=== PATIENT | male | born 1985 | race Caucasian/White ===

== ENCOUNTER 2018-09-21 09:35 | Emergency (ER) | payer SELFPAY ==
[2018-09-21 09:35] VITALS: BP 127/81; PULSE 81; RESP 18; TEMP 36.6; O2SAT 98
--- NOTE | 2018-09-21 09:52 | ED.ALLEREA ---
HPI - Allergic Reaction General Chief complaint: Allergic Reaction Stated complaint: Allergic reaction on arm and torso Time Seen by Provider: 09/21/18 09:52 Source: patient and other (girlfriend) Mode of arrival: ambulatory Limitations: no limitations History of Present Illness HPI narrative: This is a 33-year-old male comes in with complaint of rash. Patient states that started in the last 2 days. Patient noticed spots on his right upper extremity which is now in both upper extremities, his torso, back as well as running down his legs. Patient states it was very itchy. He has been taking Benadryl regularly in the itchiness is improved. No blistering. Patient has not had any fevers, no cold cough or congestion. No chest pain, no shortness of breath, no difficulty with breathing or swelling of the mouth, airway or tightness in the airway. No vomiting, no diarrhea or constipation. Patient has not had similar symptoms in the past. He has been taking amoxicillin for almost 2 weeks, he was taking this for a dental infection. Patient has never had allergic reaction to medications in the past. He denies any other medical history besides 2 surgeries on his right eye after an injury from prior crack or he lost the eye/vision. 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 He did not have any other symptoms until the next day. Related Data Previous Rx's Medication Instructions Recorded prednisone 50 mg PO DAILY #3 tab 09/21/18 Allergies Allergy/AdvReac Type Severity Reaction Status Date / Time No Known Drug Allergies Allergy Verified 09/21/18 09:42 Review of Systems Review of Systems ROS Unobtainable: All systems reviewed & are unremarkable except as noted in HPI and below Constitutional Denies chills, Denies fever(s), Denies headache(s), Denies lethargy and Denies weakness Eyes Denies change in vision ENT Ears, Nose, Mouth, and Throat: Reports as per HPI, Denies change in voice, Denies headache(s), Denies hoarseness, Denies lip swelling, Denies mouth lesions, Denies mouth pain, Denies nasal congestion, Denies neck pain, Denies sinus pain, Denies sore throat, Denies throat swelling and Denies tongue swelling Cardiovascular Denies chest pain, Denies edema, Denies irregular heart rhythm, Denies lightheadedness, Denies palpitations, Denies dyspnea and Denies dyspnea on exertion Respiratory Denies change in phlegm color, Denies chest congestion, Denies cough, Denies dyspnea, Denies dyspnea on exertion, Denies stridor and Denies wheezing Gastrointestinal Gastrointestinal: Denies abdominal pain, Denies melena, Denies hematochezia, Denies change in bowel habits, Denies diarrhea, Denies nausea and Denies vomiting Genitourinary Denies hematuria, Denies dysuria, Denies flank pain, Denies urinary incontinence and Denies urinary urgency Musculoskeletal Denies neck pain Integumentary/Breasts Reports as per HPI, Reports erythema, Denies photosensitivity, Reports rash and Denies unusual bruising Neurologic Denies headache(s) and Denies weakness Endocrine Denies palpitations Allergic/Immunologic Denies lip swelling, Denies throat swelling, Denies tongue swelling and Denies wheezing [facility] Surgical History (Updated 09/21/18 @ 10:10 by Demi Ramirez DO) H/O eye surgery (Chronic) Social History Smoking Status: Former smoker Social History Smoking Status: Former smoker Comment: Recently moved from [place], has 60-90 days before health insurance kicks in at [facility]. Exam Narrative Exam Narrative: GEN: well nourished, well appearing [place] on calm male, alert and oriented x 3, patient appears to be in no acute distress. HEENT: Atraumatic, right eye appears consistent with patient's history of injury and loss of vision, left eye is PERRLA, extraocular movements are intact, nares are clear, TMs are clear with no fluid, there is no conjunctival pallor. Throat is clear without any exudates, erythema, tonsillar enlargement or uvular deviation, no swelling of lips, oropharynx, no blistering or mucosal involvement. HEART: Regular rate and rhythm without murmur, clicks, rubs. LUNGS:Lungs clear to auscultation, no wheezes, rales, crackles, chest moves symmetrically ABD:bowel sounds normal, soft, non-tender, no guarding, rebound, rigidity, no masses noted, no hepatosplenomegaly :No CVA tenderness MSCL: Non-tender, no muscle atrophy, muscles strength 5/5 upper and lower extremities, full range of motion, normal gait NEURO:CN 2-12 intact, sensation normal. SKIN: Patient has papular erythematous rash on his upper extremities, chest torso and lower extremities. They are slightly raised. There is no vesicles. Is nontender to touch. There is no blistering. No mucosal involvement noted. Initial Vital Signs Initial Vital Signs: Vital Signs Temperature 97.8 F 09/21/18 09:35 Pulse Rate 81 09/21/18 09:35 Respiratory Rate 18 09/21/18 09:35 Blood Pressure 127/81 09/21/18 09:35 Pulse Oximetry 98 09/21/18 09:35 Course Orders Ordered: Discontinued Medications Prednisone (Deltasone) 60 mg PO NOW ONE Stop: 09/21/18 10:04 Last Admin: 09/21/18 10:10 Dose: 60 mg Vital Signs - 8 hr 09/21/18 09:35 Temperature 97.8 F Pulse Rate 81 Respiratory Rate 18 Blood Pressure 127/81 Pulse Oximetry 98 MDM - Allergic Reaction MDM Narrative Medical decision making narrative: Discussed with patient I suspect this is more from the amoxicillin although he did have potentially an exposure with some kind a pesticide through work but he did not have any other airway symptoms or similar symptoms when I which expect with an aerosol, discussed with patient to stop his amoxicillin. His symptoms have been improving feels a little bit of a knot on that side but everything else has resolved. He has follow-up with Dr. Manuel through [facility] I recommended he follow up with them. I do short course of steroids he is to continue Benadryl and return for re-evaluation. I recommended that he does not take amoxicillin in the future. We also discussed [facility] dental clinic in [place] may be a dental option while awaiting his insurance. Discharge Plan Departure Patient Disposition: Home Clinical Impression: Allergic drug reaction Qualifiers: Encounter type: initial encounter Qualified Code(s): T78.40XA - Allergy, unspecified, initial encounter Discharge Date/Time: 09/21/18 10:34 Interventions: ED Discharge Assessment Last Done: 09/21/18 10:30 Instructions: DI for Adverse Drug Reaction -- Allergic Activity Restrictions/Additional Instructions: Follow-up with Dr. Manuel in the next 3-5 days for recheck. Particularly if her symptoms have not completely resolved. Stop amoxicillin. I suspect this is the cause of her rash in his allergic reaction. Take prednisone once daily until gone. Take this medication with food. Continue Benadryl 1-2 tabs every 6-8 hours as needed for symptoms and itching. Return to the emergency department for fevers greater than 100.4, blistering or rash inside the lips, mouth or mucous membranes severe pain, persistent vomiting, black or bloody stools, shortness of breath, swelling of your lips, mouth or throat or other new or concerning symptoms. Prescriptions: New prednisone 50 mg tablet 50 mg PO DAILY Qty: 3 RF: 0 Referrals: Shama Manuel MD [Physician] -
[2018-09-21] MEDS: predniSONE 20 MG TABLET 60 MG PO (10:10)
--- NOTE | 2018-09-21 10:13 | ED_ITS ---
HPI - Allergic Reaction General Chief complaint: Allergic Reaction Stated complaint: Allergic reaction on arm and torso Time Seen by Provider: 09/21/18 09:52 Source: patient and other (girlfriend) Mode of arrival: ambulatory Limitations: no limitations History of Present Illness HPI narrative: This is a 33-year-old male comes in with complaint of rash. Patient states that started in the last 2 days. Patient noticed spots on his right upper extremity which is now in both upper extremities, his torso, back as well as running down his legs. Patient states it was very itchy. He has been taking Benadryl regularly in the itchiness is improved. No blistering. Patient has not had any fevers, no cold cough or congestion. No chest pain, no shortness of breath, no difficulty with breathing or swelling of the mouth, airway or tightness in the airway. No vomiting, no diarrhea or constipation. Patient has not had similar symptoms in the past. He has been taking amoxicillin for almost 2 weeks, he was taking this for a dental infection. Patient has never had allergic reaction to medications in the past. He denies any other medical history besides 2 surgeries on his right eye after an injury from prior crack or he lost the eye/vision. 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 He did not have any other symptoms until the next day. Related Data Previous Rx's Medication Instructions Recorded prednisone 50 mg PO DAILY #3 tab 09/21/18 Allergies Allergy/AdvReac Type Severity Reaction Status Date / Time No Known Drug Allergies Allergy Verified 09/21/18 09:42 Review of Systems Review of Systems ROS Unobtainable: All systems reviewed & are unremarkable except as noted in HPI and below Constitutional Denies chills, Denies fever(s), Denies headache(s), Denies lethargy and Denies weakness Eyes Denies change in vision ENT Ears, Nose, Mouth, and Throat: Reports as per HPI, Denies change in voice, Denies headache(s), Denies hoarseness, Denies lip swelling, Denies mouth lesions, Denies mouth pain, Denies nasal congestion, Denies neck pain, Denies sinus pain, Denies sore throat, Denies throat swelling and Denies tongue swelling Cardiovascular Denies chest pain, Denies edema, Denies irregular heart rhythm, Denies lightheadedness, Denies palpitations, Denies dyspnea and Denies dyspnea on exertion Respiratory Denies change in phlegm color, Denies chest congestion, Denies cough, Denies dyspnea, Denies dyspnea on exertion, Denies stridor and Denies wheezing Gastrointestinal Gastrointestinal: Denies abdominal pain, Denies melena, Denies hematochezia, Denies change in bowel habits, Denies diarrhea, Denies nausea and Denies vomiting Genitourinary Denies hematuria, Denies dysuria, Denies flank pain, Denies urinary incontinence and Denies urinary urgency Musculoskeletal Denies neck pain Integumentary/Breasts Reports as per HPI, Reports erythema, Denies photosensitivity, Reports rash and Denies unusual bruising Neurologic Denies headache(s) and Denies weakness Endocrine Denies palpitations Allergic/Immunologic Denies lip swelling, Denies throat swelling, Denies tongue swelling and Denies wheezing [facility] Surgical History (Updated 09/21/18 @ 10:10 by Demi Ramirez DO) H/O eye surgery (Chronic) Social History Smoking Status: Former smoker Social History Smoking Status: Former smoker Comment: Recently moved from [place], has 60-90 days before health insurance kicks in at [facility]. Exam Narrative Exam Narrative: GEN: well nourished, well appearing [place] on calm male, alert and oriented x 3, patient appears to be in no acute distress. HEENT: Atraumatic, right eye appears consistent with patient's history of injury and loss of vision, left eye is PERRLA, extraocular movements are intact, nares are clear, TMs are clear with no fluid, there is no conjunctival pallor. Throat is clear without any exudates, erythema, tonsillar enlargement or uvular deviation, no swelling of lips, oropharynx, no blistering or mucosal involvement. HEART: Regular rate and rhythm without murmur, clicks, rubs. LUNGS:Lungs clear to auscultation, no wheezes, rales, crackles, chest moves symmetrically ABD:bowel sounds normal, soft, non-tender, no guarding, rebound, rigidity, no masses noted, no hepatosplenomegaly :No CVA tenderness MSCL: Non-tender, no muscle atrophy, muscles strength 5/5 upper and lower extremities, full range of motion, normal gait NEURO:CN 2-12 intact, sensation normal. SKIN: Patient has papular erythematous rash on his upper extremities, chest torso and lower extremities. They are slightly raised. There is no vesicles. Is nontender to touch. There is no blistering. No mucosal involvement noted. Initial Vital Signs Initial Vital Signs: Vital Signs Temperature 97.8 F 09/21/18 09:35 Pulse Rate 81 09/21/18 09:35 Respiratory Rate 18 09/21/18 09:35 Blood Pressure 127/81 09/21/18 09:35 Pulse Oximetry 98 09/21/18 09:35 Course Orders Ordered: Discontinued Medications Prednisone (Deltasone) 60 mg PO NOW ONE Stop: 09/21/18 10:04 Last Admin: 09/21/18 10:10 Dose: 60 mg Vital Signs - 8 hr 09/21/18 09:35 Temperature 97.8 F Pulse Rate 81 Respiratory Rate 18 Blood Pressure 127/81 Pulse Oximetry 98 MDM - Allergic Reaction MDM Narrative Medical decision making narrative: Discussed with patient I suspect this is more from the amoxicillin although he did have potentially an exposure with some kind a pesticide through work but he did not have any other airway symptoms or similar symptoms when I which expect with an aerosol, discussed with patient to stop his amoxicillin. His symptoms have been improving feels a little bit of a knot on that side but everything else has resolved. He has follow-up with Dr. Manuel through [facility] I recommended he follow up with them. I do short course of steroids he is to continue Benadryl and return for re-evaluation. I recommended that he does not take amoxicillin in the future. We also discussed [facility] dental clinic in [place] may be a dental option while awaiting his insurance. Discharge Plan Departure Patient Disposition: Home Clinical Impression: Allergic drug reaction Qualifiers: Encounter type: initial encounter Qualified Code(s): T78.40XA - Allergy, unspecified, initial encounter Discharge Date/Time: 09/21/18 10:34 Interventions: ED Discharge Assessment Last Done: 09/21/18 10:30 Instructions: DI for Adverse Drug Reaction -- Allergic Activity Restrictions/Additional Instructions: Follow-up with Dr. Manuel in the next 3-5 days for recheck. Particularly if her symptoms have not completely resolved. Stop amoxicillin. I suspect this is the cause of her rash in his allergic reaction. Take prednisone once daily until gone. Take this medication with food. Continue Benadryl 1-2 tabs every 6-8 hours as needed for symptoms and itching. Return to the emergency department for fevers greater than 100.4, blistering or rash inside the lips, mouth or mucous membranes severe pain, persistent vomiting, black or bloody stools, shortness of breath, swelling of your lips, mouth or throat or other new or concerning symptoms. Prescriptions: New prednisone 50 mg tablet 50 mg PO DAILY Qty: 3 RF: 0 Referrals: Shama Manuel MD [Physician] -
== END 2018-09-21 10:34 | disposition home or self-care (01) ==
PROVIDERS: Emergency Provider Emergency Medicine
DX: T78.40XA Allergy, unspecified, initial encounter (principal); R21 Rash and other nonspecific skin eruption; Y99.0 Civilian activity done for income or pay
CPT/HCPCS: 99282; 99283

== ENCOUNTER 2018-11-14 08:25 | Emergency (ER) | payer OTHER, SELFPAY ==
--- NOTE | 2018-11-14 08:27 | ED.BACK ---
HPI - Back Pain/Injury General Chief Complaint: Back Pain/Injury Stated Complaint: LOWER BACK PAIN Time Seen by Provider: 11/14/18 08:26 Source: patient Mode of arrival: ambulatory Limitations: no limitations History of Present Illness HPI Narrative: 33-year-old male former smoker with benign medical history presents with severe right-sided lower back pain for the past day or 2. He denies any trauma or direct injury. He has had no fever or chills. The pain is worse with motion and improves with rest. He denies any radiation of the pain. He has no trouble controlling bowel or bladder and denies numbness, tingling or weakness. He has had no foot drop. He denies any history of back pain. He has recently been shoveling sand and working lifting heavy objects Complaint: back pain Onset (ago): day(s) Duration: constant Similar Symptoms Previously: No Location: lumbar spine Severity: moderate Quality: burning and sharp Radiation: none Relieving factors: immobilization Exacerbating factors: movement Context: while lifting Associated symptoms: denies other symptoms Related Data Previous Rx's Medication Instructions Recorded prednisone 50 mg PO DAILY #3 tab 09/21/18 cyclobenzaprine 10 mg PO TID PRN #14 tab 11/14/18 hydrocodone-acetaminophen 1 tab PO Q4-6H PRN #10 tab 11/14/18 ketorolac 10 mg PO Q6H PRN #14 tab 11/14/18 lidocaine [Lidoderm] 1 patch TOP DAILY #15 each 11/14/18 Allergies Allergy/AdvReac Type Severity Reaction Status Date / Time No Known Drug Allergies Allergy Verified 09/21/18 09:42 Review of Systems Constitutional Denies chills, Denies fever(s), Denies lethargy and Denies weakness Eyes Denies change in vision, Denies eye discharge, Denies irritation and Denies loss of vision ENT Ears, Nose, Mouth, and Throat: Denies change in voice, Denies neck pain and Denies sore throat Cardiovascular Denies chest pain, Denies irregular heart rhythm, Denies lightheadedness, Denies palpitations, Denies dyspnea, Denies dyspnea on exertion and Denies orthopnea Respiratory Denies cough, Denies dyspnea, Denies dyspnea on exertion and Denies wheezing Gastrointestinal Gastrointestinal: Denies abdominal pain, Denies change in bowel habits, Denies diarrhea, Denies nausea and Denies vomiting Genitourinary Denies hematuria, Denies flank pain, Denies urinary incontinence and Denies urinary urgency Musculoskeletal Reports back pain and Denies neck pain Integumentary/Breasts Denies pruritus, Denies erythema, Denies rash and Denies wounds Neurologic Denies confusion, Denies loss of vision and Denies weakness Psychiatric Denies anxiety, Denies confusion, Denies depression, Denies homicidal ideation and Denies suicidal ideation Endocrine Denies palpitations Hematologic/Lymphatic Denies easy bruising Allergic/Immunologic Denies wheezing [facility] Surgical History H/O eye surgery (Chronic) Social History Smoking Status: Former smoker Social History Smoking Status: Former smoker Exam Narrative Exam Narrative: GENERAL: This is a well-nourished, well-developed patient, in mild distress. HEAD: Atraumatic. Normocephalic. No temporal or scalp tenderness. EYES: Pupils equal round and reactive. Extraocular motions intact. No scleral icterus. No injection or drainage. ENT: Nose without bleeding, purulent drainage or septal hematoma. Throat without erythema, tonsillar hypertrophy or exudate. Uvula midline. Airway patent. NECK: Trachea midline. No JVD or lymphadenopathy. Supple, nontender, no meningeal signs. CARDIOVASCULAR: Regular rate and rhythm without murmurs, gallops, or rubs. RESPIRATORY: Clear to auscultation. Breath sounds equal bilaterally. No wheezes, rales, or rhonchi. GASTROINTESTINAL: Abdomen soft, non-tender, nondistended. No hepato-splenomegaly, or palpable masses. No guarding. EXTREMITIES: No clubbing, cyanosis, or edema. No joint tenderness, effusion, or edema noted. BACK: cell tender but free of any obvious external abnormalities. Patient exam notes decreased range of motion and muscle spasm in the paraspinal musculature of R lumbar region. , but no CVA tenderness, or vertebral point tenderness. There are no symptoms of cauda equina such as saddle anesthesia, and decreased reflexes, decreased sensation or strength. NEURO: AOx3. SKIN: No rash or erythema. Initial Vital Signs Initial Vital Signs: Vital Signs Temperature 97.7 F 08/09/19 08:35 Pulse Rate 67 11/14/18 08:35 Respiratory Rate 18 11/14/18 08:35 Blood Pressure 116/74 11/14/18 08:35 Pulse Oximetry 100 11/14/18 08:35 Course Orders Ordered: Discontinued Medications Diazepam (Valium) 5 mg PO NOW ONE Stop: 11/14/18 08:35 Last Admin: 11/14/18 08:47 Dose: 5 mg Ketorolac Tromethamine (Toradol) 60 mg IM NOW ONE Stop: 11/14/18 08:35 Last Admin: 11/14/18 08:46 Dose: 60 mg Lidocaine (Lidoderm) 1 each TOP NOW ONE Stop: 11/14/18 08:35 Last Admin: 11/14/18 08:47 Dose: 1 each Vital Signs - 8 hr 11/14/18 08:35 11/14/18 09:20 Temperature 97.7 F Pulse Rate 67 74 Respiratory Rate 18 18 Blood Pressure 116/74 Blood Pressure [Left Arm] 133/82 Pulse Oximetry 100 100 MDM - Back Pain/Injury MDM Narrative Medical decision making narrative: 33-year-old male with reproducible back pain and palpable spasm of the right lumbar spine. Multiple etiologies of back pain considered including; Epidural abscess, cauda equina, mass occupying lesion, and other considered. No signs of cauda equina. Return precautions given, questions answered to his apparent satisfaction Discharge Plan Departure Patient Disposition: Home Clinical Impression: Strain of lumbar region Qualifiers: Encounter type: initial encounter Qualified Code(s): S39.012A - Strain of muscle, fascia and tendon of lower back, initial encounter Discharge Date/Time: 11/14/18 09:21 Interventions: ED Discharge Assessment Last Done: 11/14/18 09:21 Instructions: DI for Low Back Pain Activity Restrictions/Additional Instructions: *You have been diagnosed with [lumbar pain with muscle spasm] *What to do: *Take medications as directed *Follow up with your primary care provider in 2-3 days, call for an appointment. Let them know you were seen in the Emergency Department and that we ask that you be seen in follow up *Return to ER if you should have any new, worsening or concerning symptoms, such as [trouble controlling bowel or bladder, numbness or tingling in her groin or pain radiating down her leg, leg weakness, other bothersome symptoms] Prescriptions: New cyclobenzaprine 10 mg tablet 10 mg PO TID PRN (Reason: muscle spasm) Qty: 14 RF: 0 hydrocodone-acetaminophen 5-325 mg tablet 1 tab PO Q4-6H PRN (Reason: pain) Qty: 10 RF: 0 ketorolac 10 mg tablet 10 mg PO Q6H PRN (Reason: pain) Qty: 14 RF: 0 lidocaine [Lidoderm] 5 % adhesive patch,medicated 1 patch TOP DAILY Qty: 15 RF: 0 No Action prednisone 50 mg tablet 50 mg PO DAILY Qty: 3 RF: 0
[2018-11-14 08:35] VITALS: BP 116/74; PULSE 67; RESP 18; TEMP 36.5; O2SAT 100
[2018-11-14] MEDS: KETOROLAC 60 MG/2 ML VIAL IM (08:46)
[2018-11-14] MEDS: diazePAM 5 MG TABLET PO (08:47)
[2018-11-14] MEDS: LIDOCAINE PATCH 1 EACH ADH..PATCH TOP (08:47)
--- NOTE | 2018-11-14 08:58 | ED_ITS ---
HPI - Back Pain/Injury General Chief Complaint: Back Pain/Injury Stated Complaint: LOWER BACK PAIN Time Seen by Provider: 11/14/18 08:26 Source: patient Mode of arrival: ambulatory Limitations: no limitations History of Present Illness HPI Narrative: 33-year-old male former smoker with benign medical history presents with severe right-sided lower back pain for the past day or 2. He denies any trauma or direct injury. He has had no fever or chills. The pain is worse with motion and improves with rest. He denies any radiation of the pain. He has no trouble controlling bowel or bladder and denies numbness, tingling or weakness. He has had no foot drop. He denies any history of back pain. He has recently been shoveling sand and working lifting heavy objects Complaint: back pain Onset (ago): day(s) Duration: constant Similar Symptoms Previously: No Location: lumbar spine Severity: moderate Quality: burning and sharp Radiation: none Relieving factors: immobilization Exacerbating factors: movement Context: while lifting Associated symptoms: denies other symptoms Related Data Previous Rx's Medication Instructions Recorded prednisone 50 mg PO DAILY #3 tab 09/21/18 cyclobenzaprine 10 mg PO TID PRN #14 tab 11/14/18 hydrocodone-acetaminophen 1 tab PO Q4-6H PRN #10 tab 11/14/18 ketorolac 10 mg PO Q6H PRN #14 tab 11/14/18 lidocaine [Lidoderm] 1 patch TOP DAILY #15 each 11/14/18 Allergies Allergy/AdvReac Type Severity Reaction Status Date / Time No Known Drug Allergies Allergy Verified 09/21/18 09:42 Review of Systems Constitutional Denies chills, Denies fever(s), Denies lethargy and Denies weakness Eyes Denies change in vision, Denies eye discharge, Denies irritation and Denies loss of vision ENT Ears, Nose, Mouth, and Throat: Denies change in voice, Denies neck pain and Denies sore throat Cardiovascular Denies chest pain, Denies irregular heart rhythm, Denies lightheadedness, Denies palpitations, Denies dyspnea, Denies dyspnea on exertion and Denies orthopnea Respiratory Denies cough, Denies dyspnea, Denies dyspnea on exertion and Denies wheezing Gastrointestinal Gastrointestinal: Denies abdominal pain, Denies change in bowel habits, Denies diarrhea, Denies nausea and Denies vomiting Genitourinary Denies hematuria, Denies flank pain, Denies urinary incontinence and Denies urinary urgency Musculoskeletal Reports back pain and Denies neck pain Integumentary/Breasts Denies pruritus, Denies erythema, Denies rash and Denies wounds Neurologic Denies confusion, Denies loss of vision and Denies weakness Psychiatric Denies anxiety, Denies confusion, Denies depression, Denies homicidal ideation and Denies suicidal ideation Endocrine Denies palpitations Hematologic/Lymphatic Denies easy bruising Allergic/Immunologic Denies wheezing [facility] Surgical History H/O eye surgery (Chronic) Social History Smoking Status: Former smoker Social History Smoking Status: Former smoker Exam Narrative Exam Narrative: GENERAL: This is a well-nourished, well-developed patient, in mild distress. HEAD: Atraumatic. Normocephalic. No temporal or scalp tenderness. EYES: Pupils equal round and reactive. Extraocular motions intact. No scleral icterus. No injection or drainage. ENT: Nose without bleeding, purulent drainage or septal hematoma. Throat without erythema, tonsillar hypertrophy or exudate. Uvula midline. Airway patent. NECK: Trachea midline. No JVD or lymphadenopathy. Supple, nontender, no meningeal signs. CARDIOVASCULAR: Regular rate and rhythm without murmurs, gallops, or rubs. RESPIRATORY: Clear to auscultation. Breath sounds equal bilaterally. No wheezes, rales, or rhonchi. GASTROINTESTINAL: Abdomen soft, non-tender, nondistended. No hepato- splenomegaly, or palpable masses. No guarding. EXTREMITIES: No clubbing, cyanosis, or edema. No joint tenderness, effusion, or edema noted. BACK: lubricating machine tender but free of any obvious external abnormalities. Patient exam notes decreased range of motion and muscle spasm in the paraspinal musculature o f R lumbar region. , but no CVA tenderness, or vertebral point tenderness. There are no symptoms of cauda equina such as saddle anesthesia, and decreased reflexes, decreased sensation or strength. NEURO: AOx3. SKIN: No rash or erythema. Initial Vital Signs Initial Vital Signs: Vital Signs Temperature 97.7 F 11/14/18 08:35 Pulse Rate 67 11/14/18 08:35 Respiratory Rate 18 11/14/18 08:35 Blood Pressure 116/74 11/14/18 08:35 Pulse Oximetry 100 11/14/18 08:35 Course Orders Ordered: Discontinued Medications Diazepam (Valium) 5 mg PO NOW ONE Stop: 11/14/18 08:35 Last Admin: 11/14/18 08:47 Dose: 5 mg Ketorolac Tromethamine (Toradol) 60 mg IM NOW ONE Stop: 11/14/18 08:35 Last Admin: 11/14/18 08:46 Dose: 60 mg Lidocaine (Lidoderm) 1 each TOP NOW ONE Stop: 11/14/18 08:35 Last Admin: 11/14/18 08:47 Dose: 1 each Vital Signs - 8 hr 11/14/18 08:35 11/14/18 09:20 Temperature 97.7 F Pulse Rate 67 74 Respiratory Rate 18 18 Blood Pressure 116/74 Blood Pressure [Left Arm] 133/82 Pulse Oximetry 100 100 MDM - Back Pain/Injury MDM Narrative Medical decision making narrative: 33-year-old male with reproducible back pain and palpable spasm of the right lumbar spine. Multiple etiologies of back pain considered including; Epidural abscess, cauda equina, mass occupying lesion, and other considered. No signs of cauda equina. Return precautions given, questions answered to his apparent satisfaction Discharge Plan Departure Patient Disposition: Home Clinical Impression: Strain of lumbar region Qualifiers: Encounter type: initial encounter Qualified Code(s): S39.012A - Strain of muscle, fascia and tendon of lower back, initial encounter Discharge Date/Time: 11/14/18 09:21 Interventions: ED Discharge Assessment Last Done: 11/14/18 09:21 Instructions: DI for Low Back Pain Activity Restrictions/Additional Instructions: *You have been diagnosed with [lumbar pain with muscle spasm] *What to do: *Take medications as directed *Follow up with your primary care provider in 2-3 days, call for an appointment. Let them know you were seen in the Emergency Department and that we ask that you be seen in follow up *Return to ER if you should have any new, worsening or concerning symptoms, such as [trouble controlling bowel or bladder, numbness or tingling in her groin or pain radiating down her leg, leg weakness, other bothersome symptoms] Prescriptions: New cyclobenzaprine 10 mg tablet 10 mg PO TID PRN (Reason: muscle spasm) Qty: 14 RF: 0 hydrocodone-acetaminophen 5-325 mg tablet 1 tab PO Q4-6H PRN (Reason: pain) Qty: 10 RF: 0 ketorolac 10 mg tablet 10 mg PO Q6H PRN (Reason: pain) Qty: 14 RF: 0 lidocaine [Lidoderm] 5 % adhesive patch,medicated 1 patch TOP DAILY Qty: 15 RF: 0 No Action prednisone 50 mg tablet 50 mg PO DAILY Qty: 3 RF: 0
[2018-11-14 09:20] VITALS: BP 133/82; PULSE 74; RESP 18; O2SAT 100
== END 2018-11-14 09:21 | disposition home or self-care (01) ==
PROVIDERS: Emergency Provider Emergency Medicine
DX: S39.012A Strain of muscle, fascia and tendon of lower back, initial encounter (principal)
CPT/HCPCS: 96372; 99282; 99283; J1885

== ENCOUNTER 2019-07-26 13:16 | Emergency (ER) | payer SELFPAY ==
[2019-07-26 13:22] VITALS: BP 127/80; PULSE 68; RESP 18; TEMP 36.6; O2SAT 98
--- NOTE | 2019-07-26 13:29 | ED_ITS ---
HPI - Back Pain/Injury <LARRY Maher - Last Filed: 07/26/19 14:23> General Chief Complaint: Back Pain/Injury Stated Complaint: under right shoulder back is hurting Time Seen by Provider: 07/26/19 13:17 Source: patient Limitations: no limitations History of Present Illness HPI Narrative: The patient is a 33-year-old male former smoker with history of eye surgery a presents with a chief complaint of pain around the back of his right shoulder blade. He states this has been going on for several weeks, at least 4 weeks at this point time. However has gotten worse over the past few days. He states his pain is 7/10 during interview. He has not taken anything at home today. He has not tried any Tylenol or ibuprofen or other measures today for his pain. He has tried ibuprofen on and off for the past several weeks. He denies any falls or trauma. Denies any previous injuries to his right shoulder or back. 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 He denies any numbness or tingling. Related Data Previous Rx's Medication Instructions Recorded prednisone 50 mg PO DAILY #3 tab 09/21/18 cyclobenzaprine 10 mg PO TID PRN #14 tab 11/14/18 hydrocodone-acetaminophen 1 tab PO Q4-6H PRN #10 tab 11/14/18 ketorolac 10 mg PO Q6H PRN #14 tab 11/14/18 lidocaine [Lidoderm] 1 patch TOP DAILY #15 each 11/14/18 cyclobenzaprine 10 mg PO TID PRN #20 tab 07/26/19 ketorolac 10 mg PO TID PRN 5 Days #14 tab 07/26/19 lidocaine 1 patch TOP DAILY PRN #15 each 07/26/19 Allergies Allergy/AdvReac Type Severity Reaction Status Date / Time No Known Drug Allergies Allergy Verified 09/21/18 09:42 Review of Systems <LARRY Maher - Last Filed: 07/26/19 14:23> Review of Systems Narrative: GENERAL: Denies chills, fatigue, malaise, fever, sweats. HEENT: Denies sinus pain, ear pain, sore throat, difficulty swallowing, dizziness. RESPIRATORY: Denies dyspnea, cough, wheezing, hemoptysis, sputum. CARDIOVASCULAR: Denies chest pain, palpitations, orthopnea, edema, GASTROINTESTINAL: Denies nausea, vomiting, abdominal pain, diarrhea, constipation, melena. : Denies dysuria, frequency, incontinence, hematuria, urinary retention. MUSCULOSKELETAL: See HPI SKIN: Denies rash, skin lesions, or other NEUROLOGIC: Denies weakness, headache, numbness, change in speech, confusion, seizures, incoordination. PSYCHIATRIC: No concerning psychosocial issues. 12 point review of systems is negative except for those stated above Patient History <LARRY Maher - Last Filed: 07/26/19 14:23> Surgical History H/O eye surgery (Chronic) Social History Smoking Status: Former smoker Smoking Status: Former smoker alcohol intake frequency: 0-2 drinks per day Substance Use Type: does not use Exam <LARRY Maher - Last Filed: 07/26/19 14:23> Narrative Exam Narrative: GENERAL: This is a well-nourished, well-developed patient, in no acute distress. HEAD: Atraumatic. Normocephalic. No temporal or scalp tenderness. EYES: Postoperative right eye noted. Left eye is tracking well. ENT: Nose without bleeding, purulent drainage or septal hematoma. Throat without erythema, tonsillar hypertrophy or exudate. Uvula midline. Airway patent. NECK: Trachea midline. No JVD or lymphadenopathy. Supple, nontender, no meningeal signs. CARDIOVASCULAR: Regular rate and rhythm RESPIRATORY: Clear to auscultation. Breath sounds equal bilaterally. No wheezes, rales, or rhonchi. No cough. No increased respiratory effort. No accessory muscle use. GASTROINTESTINAL: Abdomen soft, non-tender, nondistended. No hepato- splenomegaly, or palpable masses. No guarding. EXTREMITIES: No clubbing, cyanosis, or edema. No joint tenderness, effusion, or edema noted. Full range of motion noted bilateral shoulders. Positive radial pulses bilateral shoulders. BACK: No pain to CT or L-spine palpation. No palpable deformity or step-offs. Pain to right paraspinal muscles the thoracic area. NEURO: AOx3. SKIN: No rash or erythema on visible skin. No rash lesions or other abnormality noted around right shoulder and thoracic spine Initial Vital Signs Initial Vital Signs: Vital Signs Temperature 97.9 F 07/26/19 13:22 Pulse Rate 68 07/26/19 13:22 Respiratory Rate 18 07/26/19 13:22 Blood Pressure 127/80 07/26/19 13:22 Pulse Oximetry 98 07/26/19 13:22 <Demi Ramirez DO - Last Filed: 07/26/19 15:01> Initial Vital Signs Initial Vital Signs: Vital Signs Temperature 97.9 F 07/26/19 13:22 Pulse Rate 68 07/26/19 13:22 Respiratory Rate 18 07/26/19 13:22 Blood Pressure 127/80 07/26/19 13:22 Pulse Oximetry 98 07/26/19 13:22 Course <EUGENIO Maher-BC - Last Filed: 07/26/19 14:23> Orders Ordered: Discontinued Medications Cyclobenzaprine HCl (Flexeril) 10 mg PO NOW ONE Stop: 07/26/19 13:26 Last Admin: 07/26/19 13:33 Dose: 10 mg Documented by: MEISENB Ketorolac Tromethamine (Toradol) 60 mg IM NOW ONE Stop: 07/26/19 13:26 Last Admin: 07/26/19 13:32 Dose: 60 mg Documented by: MEISENB Lidocaine (Lidoderm) 1 each TOP NOW ONE Stop: 07/26/19 13:26 Last Admin: 07/26/19 13:33 Dose: 1 each Documented by: MEISENB Vital Signs Vital signs: Vital Signs - 8 hr 07/26/19 13:22 07/26/19 14:04 Temperature 97.9 F Pulse Rate 68 54 L Respiratory Rate 18 18 Blood Pressure 127/80 Blood Pressure [Left Arm] 123/72 Pulse Oximetry 98 96 <Demi Ramirez DO - Last Filed: 07/26/19 15:01> Orders Ordered: Discontinued Medications Cyclobenzaprine HCl (Flexeril) 10 mg PO NOW ONE Stop: 07/26/19 13:26 Last Admin: 07/26/19 13:33 Dose: 10 mg Documented by: MEISENB Ketorolac Tromethamine (Toradol) 60 mg IM NOW ONE Stop: 07/26/19 13:26 Last Admin: 07/26/19 13:32 Dose: 60 mg Documented by: THERESA Lidocaine (Lidoderm) 1 each TOP NOW ONE Stop: 07/26/19 13:26 Last Admin: 07/26/19 13:33 Dose: 1 each Documented by: THERESA Vital Signs Vital signs: Vital Signs - 8 hr 07/26/19 13:22 07/26/19 14:04 Temperature 97.9 F Pulse Rate 68 54 L Respiratory Rate 18 18 Blood Pressure 127/80 Blood Pressure [Left Arm] 123/72 Pulse Oximetry 98 96 MDM - Back Pain/Injury <EUGENIO Maher- - Last Filed: 07/26/19 14:23> MDM Narrative Medical decision making narrative: The patient is a 33-year-old male who presents with a chief complaint of right-sided shoulder and back pain. He denies any falls or trauma declines an x-ray. He feels improved after the above-stated therapies. I discussed rest, give him a work note for light duty, discussed not combining Toradol with any other anti-inflammatories, that cyclobenzaprine to be sedating etcetera. Encourage PCP follow-up the next few days. Patient has no questions or concerns upon discharge and states understanding return precautions as well as follow-up care. Discharge Plan Departure Patient Disposition: Home Clinical Impression: Muscle spasm Discharge Date/Time: 07/26/19 14:14 Instructions: DI for Muscle Strain, DI for Back Spasm Activity Restrictions/Additional Instructions: Thank you for trusting us with your care today. Please follow-up with primary care provider. I have given you contact information the [facility] health natural resource economist. They can help you identify a primary care provider. I have sent your prescriptions to [facility] Please be aware that cyclobenzaprine can be sedating. Do not take and drive or combine it with any other sedating agents. I have given you a prescription of Toradol. This is an NSAID. Do not combine it with other NSAIDs such as Aleve or ibuprofen. I suggest taking it with some food, as it can irritate your stomach. Prescriptions: New cyclobenzaprine 10 mg tablet 10 mg PO TID PRN (Reason: muscle spasm) Qty: 20 RF: 0 ketorolac 10 mg tablet 10 mg PO TID PRN (Reason: pain) 5 Days Qty: 14 RF: 0 lidocaine 5 % adhesive patch,medicated 1 patch TOP DAILY PRN (Reason: pain) Qty: 15 RF: 0 No Action prednisone 50 mg tablet 50 mg PO DAILY Qty: 3 RF: 0 cyclobenzaprine 10 mg tablet 10 mg PO TID PRN (Reason: muscle spasm) Qty: 14 RF: 0 hydrocodone-acetaminophen 5-325 mg tablet 1 tab PO Q4-6H PRN (Reason: pain) Qty: 10 RF: 0 ketorolac 10 mg tablet 10 mg PO Q6H PRN (Reason: pain) Qty: 14 RF: 0 lidocaine [Lidoderm] 5 % adhesive patch,medicated 1 patch TOP DAILY Qty: 15 RF: 0 Referrals: [facility] Resources [Outside] Stand Alone Forms: Work Release Note
[2019-07-26] MEDS: KETOROLAC 60 MG/2 ML VIAL IM (13:32)
[2019-07-26] MEDS: CYCLOBENZAPRINE 10 MG TABLET PO (13:33)
[2019-07-26] MEDS: LIDOCAINE PATCH 1 EACH ADH..PATCH TOP (13:33)
[2019-07-26 14:04] VITALS: BP 123/72; PULSE 54; RESP 18; O2SAT 96
== END 2019-07-26 14:14 | disposition home or self-care (01) ==
PROVIDERS: Emergency Provider Nurse Practitioner Family
DX: M62.838 Other muscle spasm (principal)
CPT/HCPCS: 96372; 99283; J1885

== ENCOUNTER 2019-08-02 14:47 | Emergency (ER) | payer SELFPAY ==
[2019-08-02 14:57] VITALS: BP 128/77; PULSE 88; RESP 18; TEMP 36.8; O2SAT 100
[2019-08-02] MEDS: ACETAMINOPHEN 325 MG TABLET 650 MG PO (18:04)
[2019-08-02] MEDS: IBUPROFEN 400 MG TABLET PO (18:04)
[2019-08-02] MEDS: predniSONE 20 MG TABLET 40 MG PO (18:04)
[2019-08-02] MEDS: PANTOPRAZOLE 20 MG TABLET PO (18:05)
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
[2019-08-02 19:05] VITALS: BP 136/78; PULSE 75; RESP 20; O2SAT 97
[2019-08-02] MEDS: TRAMADOL 50 MG PREPACK 1 BOTTLE MISC (19:17)
== END 2019-08-02 19:21 | disposition home or self-care (01) ==
PROVIDERS: Emergency Provider Nurse Practitioner Family
DX: M54.6 Pain in thoracic spine (principal)
CPT/HCPCS: 99283; 99284

== ENCOUNTER 2019-08-16 06:48 | Emergency (ER) | payer SELFPAY ==
[2019-08-16 07:00] VITALS: BP 130/90; PULSE 74; RESP 16; TEMP 36.8; O2SAT 98; BMI 23.7
[2019-08-16] MEDS: SODIUM CHLORIDE 0.9% 1,000 ML 1000 ML IV (07:31)
--- NOTE | 2019-08-16 07:32 | DI.CT.S_ITS ---
PROCEDURE: CT ABDOMEN PELVIS W CON INDICATIONS: 2 day H/O LLQ pain with tenderness TECHNIQUE: After the administration of intravenous contrast, 5 mm thick sections acquired from the diaphragm to the symphysis. 5 mm coronal and sagittal reformats were acquired. For radiation dose reduction, the following was used: automated exposure control, adjustment of mA and/or kV according to patient size. COMPARISON: None. FINDINGS: Image quality: Excellent. ABDOMEN: Lung bases: Lung bases are clear. Heart size is normal. A small hiatal hernia is incidentally noted. Solid organs: Liver is normal in size and enhancement. Diffuse fatty liver infiltration is noted. Gallbladder wall is not thickened. Biliary system is non dilated. Pancreas enhances normally. Spleen is normal in size and enhancement. No adrenal nodules. Kidneys demonstrate normal size and enhancement, without hydronephrosis. Peritoneum and bowel: In this patient with this given history, scrutiny is given to the left lower quadrant. Within the left lower quadrant, there is focal inflammatory change seen adjacent to the colon, which surrounds a focus of fat, as on series 2 image 69 and on series 4 image 22 and on series 5 image 30. There is mild wall thickening seen of the adjacent distal descending colon. Negative for diverticulitis. Bowel loops otherwise demonstrate normal wall thickness and caliber. No free fluid or air. Incidental note is made of a normal-appearing appendix. Nodes and vessels: No retroperitoneal or mesenteric adenopathy by size criteria. Aorta and inferior vena cava are normal in size. Miscellaneous: A mild periumbilical hernia is seen, containing fat. PELVIS: Genitourinary: Bladder wall thickness is normal. Miscellaneous: No inguinal hernias or adenopathy. Bones: No suspicious bony lesions. No vertebral body compression fractures. IMPRESSION: Epiploic appendagitis. This is a benign, self-limited process. Negative for diverticulitis. Incidental note is made of: Small hiatal hernia Fatty liver infiltration Mild fat-containing periumbilical hernia Normal appendix Dictated by: Merrick Montague M.D. on 08/16/2019 at 7:19 Approved by: Merrick Montague M.D. on 08/16/2019 at 7:23
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
[2019-08-16 07:39] LABS: Add Manual Diff / Slide Review NO; Basophils Absolute Auto 100 /uL (0-100); Basophils Percent Auto 0.9 % (0-2); Eosinophils Absolute Auto 400 /uL (0-450); Eosinophils Percent Auto 6.5 % (2-4); Hematocrit 43.8 % (41-53); Hemoglobin 15.6 g/dL (13.5-17.5); Lymphocytes Absolute Auto 2100 /uL (1100-4500); Lymphocytes Percent Auto 30.8 % (25-40); Mean Corpuscular HGB Conc 35.5 % (30-36); Mean Corpuscular Hemoglobin 31.6 PG (26-34); Mean Corpuscular Volume 88.9 fL (80-100); Monocytes Absolute Auto 700 /uL (0-900); Monocytes Percent Auto 9.9 % (3-14); Neutrophils Absolute Auto 3500 /uL (1500-7000); Neutrophils Percent Auto 51.9 % (50-75); Platelet Count 347 X10^3/uL (150-400); Red Blood Cell Count 4.92 X10^6/uL (4.5-5.9); Red Cell Distribution Width 12.9 % (11.6-14.8); White Blood Cell Count 6.8 X10^3/uL (4.5-11.0)
[2019-08-16] MEDS: KETOROLAC 60 MG/2 ML VIAL 30 MG IV (07:39)
[2019-08-16 07:53] LABS: Alanine Aminotransferase 106 IU/L (<50); Albumin 4.5 g/dL (3.5-5.0); Albumin Globulin Ratio 1.4 (1.0-2.8); Alkaline Phosphatase 69 U/L (38-126); Aspartate Aminotransferase 54 IU/L (17-59); BUN Creatinine Ratio 11.6 (6-22); Bilirubin Total 0.6 mg/dL (0.2-1.3); Blood Urea Nitrogen 11 mg/dL (9-20); Calcium 9.6 mg/dL (8.4-10.2); Carbon Dioxide 26 mmol/L (22-32); Chloride 103 mmol/L (98-107); Estimated Glomerular Filt Rate > 60.0 mL/min (>60); Globulin 3.3 g/dL (1.7-4.1); Glucose 114 mg/dL (70-100); HEMOLYSIS 18 (0-50); Lactate (Lactic Acid) 1.3 mmol/L (0.7-2.1); Lipase 74 U/L (23-300); Sodium 138 mmol/L (137-145); Total Protein 7.8 g/dL (6.3-8.2)
[2019-08-16 10:08] VITALS: BP 114/74; PULSE 88; RESP 18; O2SAT 98
== END 2019-08-16 10:22 | disposition home or self-care (01) ==
PROVIDERS: Emergency Medicine; Emergency Provider Emergency Medicine
DX: R10.32 Left lower quadrant pain (principal); K38.8 Other specified diseases of appendix
CPT/HCPCS: 36415; 74177; 80053; 81003; 83605; 83690; 85025; 93005; 96361; 96374; 99284; J1885; Q9967

== ENCOUNTER 2019-09-20 09:26 | Emergency (ER) | payer SELFPAY ==
[2019-09-20 09:32] VITALS: BP 145/86; PULSE 94; RESP 20; TEMP 36.4; O2SAT 98
--- NOTE | 2019-09-20 09:35 | PC.NURSE ---
patient taking a shower lifted up his neck and felt sharp pain in right scapular region. Also noticed a small lump lower down in mid back that is soft and slightly tender to palpation. Denies numbness and tingling in arms. Patient reports pain with movement of neck down neck to shoulder and scapular region.
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
[2019-09-20] MEDS: CYCLOBENZAPRINE 10 MG TABLET PO (10:00)
[2019-09-20] MEDS: LIDOCAINE PATCH 1 EACH ADH..PATCH TOP (10:01)
[2019-09-20] MEDS: KETOROLAC 60 MG/2 ML VIAL 30 MG IM (10:01)
[2019-09-20 10:17] VITALS: BP 118/76; PULSE 68; RESP 16; O2SAT 98
== END 2019-09-20 10:17 | disposition home or self-care (01) ==
PROVIDERS: Emergency Provider Emergency Medicine
DX: M54.6 Pain in thoracic spine (principal); M25.511 Pain in right shoulder; M62.830 Muscle spasm of back; D17.39 Benign lipomatous neoplasm of skin and subcutaneous tissue of other sites
CPT/HCPCS: 96372; 99283; J1885

== ENCOUNTER 2019-12-29 07:32 | Emergency (ER) | payer SELFPAY ==
[2019-12-29 07:37] VITALS: BP 137/97
[2019-12-29 07:38] VITALS: BP 137/97; PULSE 70; PULSE 71; RESP 16; TEMP 36.7; O2SAT 97; O2SAT 98; BMI 23.7
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
[2019-12-29 07:58] LABS: Add Manual Diff / Slide Review NO; Basophils Absolute Auto 0 /uL (0-100); Basophils Percent Auto 0.8 % (0-2); Eosinophils Absolute Auto 200 /uL (0-450); Eosinophils Percent Auto 3.4 % (2-4); Hematocrit 46.2 % (41-53); Hemoglobin 16.4 g/dL (13.5-17.5); Lymphocytes Absolute Auto 1900 /uL (1100-4500); Mean Corpuscular HGB Conc 35.6 % (30-36); Mean Corpuscular Hemoglobin 31.5 PG (26-34); Mean Corpuscular Volume 88.4 fL (80-100); Monocytes Absolute Auto 600 /uL (0-900); Monocytes Percent Auto 10.6 % (3-14); Neutrophils Absolute Auto 2800 /uL (1500-7000); Neutrophils Percent Auto 51.2 % (50-75); Platelet Count 351 X10^3/uL (150-400); Red Blood Cell Count 5.22 X10^6/uL (4.5-5.9); Red Cell Distribution Width 13.4 % (11.6-14.8); White Blood Cell Count 5.6 X10^3/uL (4.5-11.0)
[2019-12-29 08:04] VITALS: PULSE 71; O2SAT 98
[2019-12-29 08:05] VITALS: BP 133/82; PULSE 61; O2SAT 98
[2019-12-29] MEDS: SODIUM CHLORIDE 0.9% 1,000 ML 1000 ML IV (08:05)
[2019-12-29] MEDS: ONDANSETRON 4 MG/2 ML INJ IV (08:06)
[2019-12-29 08:11] LABS: Alanine Aminotransferase 90 IU/L (<50); Albumin 4.9 g/dL (3.5-5.0); Albumin Globulin Ratio 1.4 (1.0-2.8); Alkaline Phosphatase 75 U/L (38-126); Aspartate Aminotransferase 46 IU/L (17-59); BUN Creatinine Ratio 11.8 (6-22); Blood Urea Nitrogen 11 mg/dL (9-20); Calcium 9.4 mg/dL (8.4-10.2); Carbon Dioxide 27 mmol/L (22-32); Chloride 102 mmol/L (98-107); Estimated Glomerular Filt Rate > 60.0 mL/min (>60); Globulin 3.5 g/dL (1.7-4.1); Glucose 108 mg/dL (70-100); HEMOLYSIS 21 (0-50); Lipase 78 U/L (23-300); Potassium 3.7 mmol/L (3.4-5.1); Sodium 141 mmol/L (137-145); Total Protein 8.4 g/dL (6.3-8.2)
[2019-12-29 08:30] VITALS: BP 123/68; PULSE 75; O2SAT 97
[2019-12-29 08:37] LABS: COVID19 -Nasal RAPID Negative (Negative)
[2019-12-29 09:00] VITALS: BP 116/68; PULSE 54; O2SAT 97
== END 2019-12-29 09:13 | disposition home or self-care (01) ==
PROVIDERS: Emergency Provider Emergency Medicine
DX: K21.9 Gastro-esophageal reflux disease without esophagitis (principal); R11.2 Nausea with vomiting, unspecified; R19.7 Diarrhea, unspecified
CPT/HCPCS: 36415; 80053; 83690; 85025; 87635; 96361; 96374; 99284; J2405

== ENCOUNTER 2020-01-08 19:24 | Emergency (ER) | payer MEDICAID, SELFPAY ==
[2020-01-08 19:35] VITALS: BP 138/91; PULSE 71; RESP 15; TEMP 36.5; O2SAT 98; BMI 23.7
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
[2020-01-08 21:31] LABS: Add Manual Diff / Slide Review NO; Basophils Absolute Auto 0 /uL (0-100); Basophils Percent Auto 0.6 % (0-2); Eosinophils Absolute Auto 200 /uL (0-450); Eosinophils Percent Auto 2.2 % (2-4); Hematocrit 45.9 % (41-53); Hemoglobin 16.2 g/dL (13.5-17.5); Lymphocytes Absolute Auto 2500 /uL (1100-4500); Lymphocytes Percent Auto 33.4 % (25-40); Mean Corpuscular HGB Conc 35.4 % (30-36); Mean Corpuscular Hemoglobin 31.3 PG (26-34); Mean Corpuscular Volume 88.4 fL (80-100); Monocytes Absolute Auto 600 /uL (0-900); Monocytes Percent Auto 8.4 % (3-14); Neutrophils Absolute Auto 4100 /uL (1500-7000); Neutrophils Percent Auto 55.4 % (50-75); Platelet Count 392 X10^3/uL (150-400); Red Blood Cell Count 5.19 X10^6/uL (4.5-5.9); White Blood Cell Count 7.4 X10^3/uL (4.5-11.0)
[2020-01-08 21:35] LABS: BUN Creatinine Ratio 14.1 (6-22); Blood Urea Nitrogen 12 mg/dL (9-20); Calcium 9.3 mg/dL (8.4-10.2); Carbon Dioxide 26 mmol/L (22-32); Chloride 102 mmol/L (98-107); Estimated Glomerular Filt Rate > 60.0 mL/min (>60); Glucose 92 mg/dL (70-100); HEMOLYSIS < 15 (0-50); Potassium 3.8 mmol/L (3.4-5.1); Sodium 138 mmol/L (137-145)
[2020-01-08] MEDS: PROPARACAINE 0.5% OPHTH SOL 1 DROPS EYE-RIGHT (21:51)
[2020-01-08] MEDS: KETOROLAC 60 MG/2 ML VIAL 15 MG IV (21:52)
[2020-01-08] MEDS: FLUORESCEIN 1 MG STRIP EYE-RIGHT (21:52)
[2020-01-08] MEDS: METOCLOPRAMIDE 10 MG/2 ML INJ IV (21:53)
[2020-01-08] MEDS: SODIUM CHLORIDE 0.9% 1,000 ML 1000 ML IV (22:00)
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
== END 2020-01-08 23:34 | disposition home or self-care (01) ==
PROVIDERS: Emergency Provider Emergency Medicine
DX: G43.809 Other migraine, not intractable, without status migrainosus (principal)
CPT/HCPCS: 70481; 80048; 85025; 96361; 96374; 96375; 99284; J1885; J2765; Q9967

== ENCOUNTER 2020-04-25 16:43 | Emergency (ER) | payer OTHER, MEDICAID, SELFPAY ==
[2020-04-25 17:00] VITALS: BP 125/74; PULSE 67; RESP 16; TEMP 36.5; O2SAT 99
--- NOTE | 2020-04-25 17:03 | DI.RAD.S_ITS ---
PROCEDURE: XR KNEE LT 3V INDICATIONS: injury TECHNIQUE: 3 views of the knee were acquired. COMPARISON: None. FINDINGS: Bones: No fractures or dislocations. No suspicious bony lesions. Soft tissues: No joint effusion. No suspicious soft tissue calcifications. IMPRESSION: No fracture. No acute osseous lesion. If symptoms and/or clinical suspicion for pathology persists, further assessment with repeat radiographs (7-10 days) or advanced imaging (e.g. CT, MRI or bone scan) should be considered. Dictated by: Aria Graff MD, PhD on 04/25/2020 at 16:26 Approved by: Aria Graff MD, PhD on 04/25/2020 at 16:27
--- NOTE | 2020-04-25 18:03 | PC.NURSE ---
states he was able to ambulate out of the [place]5 miles after having his left knee buckle inwards on him. reports he has had a prior injury to the same knee and explained that injury as his knee buckling inward.
--- NOTE | 2020-04-25 18:29 | ED.LOWEXIN ---
HPI - Extremity Injury (Lower) General Chief Complaint: Extremity Injury, Lower Stated Complaint: LEFT KNEE INJURY Time Seen by Provider: 04/25/20 18:06 Source: patient Mode of arrival: Ambulatory Limitations: no limitations History of Present Illness HPI Narrative: The patient was hiking earlier today. While walking downhill he says his left knee buckled. He has a prior injury to the left knee, about 5 years ago. He was never evaluated at that time. The medial aspect of his knee buckled today. He is ambulatory, he is limping. The event happened about noon. His taking nothing for pain there were no other injuries when he fell. He has no numbness or weakness in left leg. There is no edema or obvious deformity to the knee. He does have pain with motion. Related Data Previous Rx's Medication Instructions Recorded cyclobenzaprine 10 mg PO TID PRN #14 tab 09/20/19 lidocaine [Lidoderm] 1 patch TOP DAILY #5 each 09/20/19 naproxen [Naprosyn] 500 mg PO BID PRN #20 tab 09/20/19 omeprazole 40 mg PO DAILY #30 cap 12/29/19 ondansetron HCl 4 mg PO Q8H PRN #10 tab 12/29/19 tramadol 50 mg PO Q6H PRN #10 tab 04/25/20 Allergies Allergy/AdvReac Type Severity Reaction Status Date / Time Penicillins Allergy Rash Verified 04/25/20 17:03 Review of Systems Constitutional Constitutional: Denies chills, Denies fever(s) and Denies lethargy Comments: No recent illness. ENT Comments: No head or neck injury. Musculoskeletal Comments: Left knee pain as described in HPI. No edema. Integumentary/Breasts Comments: No rash, no obvious injuries. Neurologic Comments: No dizziness. No lower extremity numbness or weakness. Patient History Medical History Acid reflux Surgical History H/O eye surgery Social History Smoking Status: Former smoker Smoking Status: Former smoker alcohol intake frequency: other Substance Use Type: marijuana Exam Initial Vital Signs Initial Vital Signs: Vital Signs Temperature 97.7 F 04/25/20 17:00 Pulse Rate 67 04/25/20 17:00 Respiratory Rate 16 04/25/20 17:00 Blood Pressure 125/74 04/25/20 17:00 Pulse Oximetry 99 04/25/20 17:00 Const General: cooperative and well developed Nutritional Appearance: well nourished [facility] Head: normocephalic and atraumatic Skin General: no rashes or lesions noted Neuro General: patient alert, patient awake and patient oriented x3 Other: Motor and sensory exam of the left leg is normal. Extrem General: full ROM, no clubbing, cyanosis or edema, no pedal edema and no calf tenderness Other: Left knee range of motion 0-100 degrees. No edema. No palpable deformity. Patella is normal nontender. Anterior drawer is normal. Tenderness along the medial joint line. There is no medial laxity. There is no lateral tenderness or laxity. The left calf, and the remainder of left lower extremity is normal. Procedures Orthopedic Splinting/Casting Injury #1: Side: left Lower Extremity Injury Location: knee Lower Extremity Immobilizer: knee immobilizer Post splinting neuro exam: intact Post splinting vascular exam: intact Placed by: Nursing Course Orders Ordered: ED Orders 04/25/20 17:03 XR knee LT 3V Stat Discontinued Medications Ketorolac Tromethamine (Ketorolac 60 Mg/2 Ml Vial) 30 mg IM NOW ONE Stop: 04/25/20 18:37 Last Admin: 04/25/20 18:49 Dose: 30 mg Documented by: JEAN CARLOS Tramadol HCl (Tramadol 50 Mg Prepack) 1 bottle MISC SEEINSTR ONE Stop: 04/25/20 18:37 Last Admin: 04/25/20 18:49 Dose: 1 bottle Documented by: JEAN CARLOS Vital Signs Vital signs: Vital Signs - 8 hr 04/25/20 17:00 04/25/20 19:05 Temperature 97.7 F Pulse Rate 67 82 Respiratory Rate 16 15 Blood Pressure 125/74 114/88 Pulse Oximetry 99 99 MDM - Extremity Injury (Lower) Imaging Data Left knee x-ray:: Radiologist's Impression: Normal. MDM Narrative Medical decision making narrative: Left knee x-ray is normal. The patient was placed in a knee immobilizer, he is up and ambulatory once the immobilizer is in place. He is advised to recheck in 2 weeks if not improved. Discharge Plan Departure Patient Disposition: Home Clinical Impression: MCL sprain of left knee Instructions: DI for Knee Sprain Activity Restrictions/Additional Instructions: Advil 3 tablets every 6 hours as needed for pain. Tramadol every 6 hours as needed for added pain control. Apply ice to the left knee frequently for the next 2 days. Use the immobilizer when up and about, wean from the immobilizer as tolerated. If no better within 2 weeks follow-up with an orthopedic surgeon. I will give you contact information for the on-call physician. Return to the ER as needed. Prescriptions: New tramadol 50 mg tablet 50 mg PO Q6H PRN (Reason: pain) Qty: 10 RF: 0 No Action naproxen [Naprosyn] 500 mg tablet 500 mg PO BID PRN (Reason: pain) Qty: 20 RF: 0 cyclobenzaprine 10 mg tablet 10 mg PO TID PRN (Reason: muscle spasm) Qty: 14 RF: 0 lidocaine [Lidoderm] 5 % adhesive patch,medicated 1 patch TOP DAILY Qty: 5 RF: 0 omeprazole 40 mg capsule,delayed release(DR/EC) 40 mg PO DAILY Qty: 30 RF: 3 ondansetron HCl 4 mg tablet 4 mg PO Q8H PRN (Reason: nausea and vomiting) Qty: 10 RF: 0 Referrals: Fuad Leos MD [Emergency Provider] - Doroteo Storm MD [Physician] -
[2020-04-25] MEDS: KETOROLAC 60 MG/2 ML VIAL 30 MG IM (18:49)
[2020-04-25] MEDS: TRAMADOL 50 MG PREPACK 1 BOTTLE MISC (18:49)
--- NOTE | 2020-04-25 19:04 | PC.NURSE ---
patient demonstrated safe ambulation with a slow limping gate after knee immobilizer placed.
[2020-04-25 19:05] VITALS: BP 114/88; PULSE 82; RESP 15; O2SAT 99
== END 2020-04-25 19:07 | disposition home or self-care (01) ==
PROVIDERS: Emergency Provider Emergency Medicine
DX: S83.8X2A Sprain of other specified parts of left knee, initial encounter (principal); X58.XXXA Exposure to other specified factors, initial encounter
CPT/HCPCS: 73562; 96372; 99283; J1885

== ENCOUNTER → 2020-05-19 15:07 | Outpatient (CLI) | payer OTHER, MEDICAID, SELFPAY ==
--- NOTE | 2020-05-19 15:09 | DI.RAD.S_ITS ---
PROCEDURE: XR CHEST 2V INDICATIONS: coughing up blood, r/o infection TECHNIQUE: 2 views of the chest were acquired. COMPARISON: None. FINDINGS: Surgical changes and devices: None. Lungs and pleura: Lungs are clear. No pleural effusions or pneumothorax. Mediastinum: Mediastinal contours are normal. Heart size is normal. Bones and chest wall: No suspicious bony abnormalities. Soft tissues appear unremarkable. IMPRESSION: No acute process. Dictated by: Dean Garcia M.D. on 05/19/2020 at 15:24 Approved by: Dean Garcia M.D. on 05/19/2020 at 15:25
== END ==
PROVIDERS: PCP Family Medicine; Referring Provider Nurse Practitioner; Visit Provider Nurse Practitioner
DX: R04.2 Hemoptysis (principal)
CPT/HCPCS: 71046

== ENCOUNTER → 2020-05-25 09:56 | Outpatient (CLI) | payer OTHER, SELFPAY ==
--- NOTE | 2020-05-25 10:09 | DI.RAD.S_ITS ---
PROCEDURE: XR CERVICAL SPINE 2V OR 3V INDICATIONS: RT SHOULDER/SPINE PAIN TECHNIQUE: 3 view(s) of the cervical spine were acquired. COMPARISON: None. FINDINGS: Bones: No fractures or dislocations to the T1 level. The lateral masses of C1 appear intact on the odontoid view. No suspicious bony lesions. Loss of lordosis which could be related to muscle spasm, rigidity or simply positional. Mild disc degeneration at the C6-C7 and C7-T1 levels. Soft tissues: No prevertebral soft tissue swelling. IMPRESSION: Loss of lordosis and mild disc degeneration C6-C7 and C7-T1. Dictated by: Beto Chambers [facility] Interpreted: Cliff Baugh MD on 05/27/2020 at 15:56 Approved by: Cliff Baugh M.D. on 05/27/2020 at 16:03
--- NOTE | 2020-05-25 10:09 | DI.RAD.S_ITS ---
PROCEDURE: XR SHOULDER RT MIN 2V INDICATIONS: RT SHOULDER/SPINE PAIN TECHNIQUE: 3 views of the shoulder were acquired. COMPARISON: None. FINDINGS: Bones: No fractures or dislocations. No suspicious bony lesions. Visualized ribs appear intact. Soft tissues: No suspicious soft tissue calcifications. IMPRESSION: No fracture. No osseous lesion. If symptoms and/or clinical suspicion for pathology persists, further assessment with repeat radiographs (7-10 days) or advanced imaging (e.g. CT, MRI or bone scan) should be considered. Dictated by: Aria Graff MD, PhD on 05/25/2020 at 17:30 Approved by: Aria Graff MD, PhD on 05/25/2020 at 17:30
== END ==
PROVIDERS: PCP Family Medicine
DX: M25.511 Pain in right shoulder (principal); M50.323 Other cervical disc degeneration at C6-C7 level
CPT/HCPCS: 72040; 72100; 73030

== ENCOUNTER → 2020-06-03 10:08 | Outpatient (CLI) | payer OTHER, MEDICAID, SELFPAY ==
[2020-06-03 10:37] LABS: Alanine Aminotransferase 187 IU/L (<50); Albumin 4.7 g/dL (3.5-5.0); Albumin Globulin Ratio 1.3 (1.0-2.8); Alkaline Phosphatase 86 U/L (38-126); Aspartate Aminotransferase 79 IU/L (17-59); BUN Creatinine Ratio 14.8 (6-22); Bilirubin Total 0.6 mg/dL (0.2-1.3); Blood Urea Nitrogen 12 mg/dL (9-20); Calcium 9.4 mg/dL (8.4-10.2); Carbon Dioxide 33 mmol/L (22-32); Chloride 99 mmol/L (98-107); Cholesterol 184 mg/dL (140-199); Estimated Glomerular Filt Rate > 60.0 mL/min (>60); Globulin 3.6 g/dL (1.7-4.1); Glucose 112 mg/dL (70-100); HDL Cholesterol 37 mg/dL (40-60); HEMOLYSIS < 15 (0-50); LDL Cholesterol Calculated 87 mg/dL (<100); Potassium 3.8 mmol/L (3.4-5.1); Sodium 138 mmol/L (137-145); Total Protein 8.3 g/dL (6.3-8.2); Triglycerides 299 mg/dL (35-150)
== END ==
PROVIDERS: PCP Family Medicine; Referring Provider Family Medicine; Visit Provider Family Medicine
DX: K21.9 Gastro-esophageal reflux disease without esophagitis (principal)
CPT/HCPCS: 36415; 80053; 80061

== ENCOUNTER → 2020-06-15 10:28 | Outpatient (CLI) | payer OTHER, MEDICAID, SELFPAY ==
[2020-06-15 11:57] LABS: Add Manual Diff / Slide Review NO; Basophils Absolute Auto 0 /uL (0-100); Basophils Percent Auto 0.5 % (0-2); Eosinophils Absolute Auto 200 /uL (0-450); Eosinophils Percent Auto 3.6 % (2-4); Hematocrit 44.8 % (41-53); Hemoglobin 15.5 g/dL (13.5-17.5); Lymphocytes Absolute Auto 1700 /uL (1100-4500); Lymphocytes Percent Auto 30.4 % (25-40); Mean Corpuscular HGB Conc 34.6 % (30-36); Mean Corpuscular Volume 89.7 fL (80-100); Monocytes Absolute Auto 400 /uL (0-900); Monocytes Percent Auto 7.4 % (3-14); Neutrophils Absolute Auto 3300 /uL (1500-7000); Neutrophils Percent Auto 58.1 % (50-75); Platelet Count 363 X10^3/uL (150-400); Red Blood Cell Count 4.99 X10^6/uL (4.5-5.9); Red Cell Distribution Width 12.7 % (11.6-14.8); White Blood Cell Count 5.6 X10^3/uL (4.5-11.0)
[2020-06-15 12:15] LABS: Alanine Aminotransferase 99 IU/L (<50); Albumin 4.7 g/dL (3.5-5.0); Albumin Globulin Ratio 1.7 (1.0-2.8); Alkaline Phosphatase 76 U/L (38-126); Aspartate Aminotransferase 49 IU/L (17-59); BUN Creatinine Ratio 13.8 (6-22); Bilirubin Total 0.6 mg/dL (0.2-1.3); Blood Urea Nitrogen 12 mg/dL (9-20); Calcium 9.5 mg/dL (8.4-10.2); Carbon Dioxide 31 mmol/L (22-32); Chloride 100 mmol/L (98-107); Estimated Glomerular Filt Rate > 60.0 mL/min (>60); Globulin 2.8 g/dL (1.7-4.1); Glucose 97 mg/dL (70-100); HEMOLYSIS < 15 (0-50); Lipase 53 U/L (23-300); Potassium 4.2 mmol/L (3.4-5.1); Sodium 137 mmol/L (137-145); Total Protein 7.5 g/dL (6.3-8.2)
[2020-06-16 06:44] LABS: HBsAg Screen Negative (Negative); Hepatitis A Antibody IgM Negative (Negative); Hepatitis B Core Antibody IgM Negative (Negative); Hepatitis C Antibody <0.1 s/co ratio (0.0-0.9)
== END ==
PROVIDERS: PCP Family Medicine; Referring Provider Family Medicine; Visit Provider Family Medicine
DX: R79.89 Other specified abnormal findings of blood chemistry (principal)
CPT/HCPCS: 36415; 80053; 80074; 83690; 85025

== ENCOUNTER → 2020-06-27 08:12 | Outpatient (CLI) | payer OTHER, MEDICAID, SELFPAY ==
--- NOTE | 2020-06-27 08:13 | DI.US.S_ITS ---
PROCEDURE: US ABDOMEN COMPLETE INDICATIONS: INCREASING LIVER FUNCTION TESTS - NO ABDOMINAL PAIN TECHNIQUE: Real-time scanning was performed of the abdominal and retroperitoneal organs, with image documentation. COMPARISON: [facility], CT, CT ABDOMEN PELVIS W CON, 08/16/2019, 7:57. FINDINGS: Liver: The liver demonstrates normal size. The liver demonstrates generalized mildly increased echogenicity. This decreases ultrasound sensitivity for detection of hepatic masses. Likely focal fatty sparing can be seen adjacent to gallbladder, which measures up to 13 mm. The main portal vein demonstrates normal size and demonstrates normal appearing, hepatopetal flow. Gallbladder: No findings of gallstones or sludge are seen. The gallbladder wall is not thickened, measuring 3 mm or less. No specific pericholecystic fluid is seen. The sonographic Cerrato sign is negative. Biliary ducts: Intrahepatic bile ducts are non-dilated. Extrahepatic bile duct caliber measures 3 mm. Normal is 6-7 mm or less in diameter, or 10 mm or less post-cholecystectomy. Pancreas: Visualized portions of the pancreas are sonographically normal. Spleen: Spleen is normal in size and homogeneous in echotexture. Kidneys: Kidneys are normal in size and echotexture. Right kidney measures 12.6 cm long; left kidney measures 13.1 cm long. No hydronephrosis or nephrolithiasis. No solid masses. Aorta: Visualized aorta is normal in caliber at less than 3 cm. Iliacs: Proximal common iliac arteries are normal in caliber at less than 2.5 cm. IVC: Intrahepatic inferior vena cava is patent. Miscellaneous: No free abdominal fluid. IMPRESSION: Fatty liver infiltration, with apparent focal fatty sparing seen adjacent the gallbladder. The gallbladder demonstrates a normal sonographic appearance. No biliary dilatation is seen. Dictated by: Merrick Montague M.D. on 06/27/2020 at 8:27 Approved by: Merrick Montague M.D. on 06/27/2020 at 8:34
== END ==
PROVIDERS: PCP Family Medicine; Referring Provider Family Medicine; Visit Provider Family Medicine
DX: R79.89 Other specified abnormal findings of blood chemistry (principal); K76.0 Fatty (change of) liver, not elsewhere classified
CPT/HCPCS: 76700

== ENCOUNTER → 2020-08-01 10:51 | Outpatient (CLI) | payer OTHER, MEDICAID, SELFPAY ==
--- NOTE | 2020-08-01 10:52 | DI.RAD.S_ITS ---
PROCEDURE: XR KNEE LT 3V INDICATIONS: Progressive left knee pain TECHNIQUE: 3 views of the knee were acquired. COMPARISON: [facility], , XR KNEE LT 3V, 04/25/2020, 17:07. FINDINGS: Bones: No fractures or dislocations. No suspicious bony lesions. Mild tricompartmental osteoarthritis. Soft tissues: No joint effusion. No suspicious soft tissue calcifications. IMPRESSION: 1. No fracture. No acute osseous lesion. If symptoms and/or clinical suspicion for pathology persists, further assessment with repeat radiographs (7-10 days) or advanced imaging (e.g. CT, MRI or bone scan) should be considered. 2. Mild tricompartmental osteoarthritis. Dictated by: rAia Graff MD, PhD on 08/01/2020 at 17:27 Approved by: Aria Graff MD, PhD on 08/01/2020 at 17:28
== END ==
PROVIDERS: PCP Family Medicine; Referring Provider Family Medicine; Visit Provider Family Medicine
DX: M25.562 Pain in left knee (principal)
CPT/HCPCS: 73562

== ENCOUNTER 2020-08-15 13:21 | Emergency (ER) | payer OTHER, MEDICAID, SELFPAY ==
[2020-08-15 13:28] VITALS: BP 124/71; PULSE 71; RESP 12; TEMP 36.7; O2SAT 98; BMI 26.8
== END 2020-08-15 14:02 | disposition left against medical advice (07) ==
PROVIDERS: Emergency Provider Emergency Medicine; PCP Family Medicine
CPT/HCPCS: 81003

== ENCOUNTER 2020-08-15 21:47 | Emergency (ER) | payer OTHER, MEDICAID, SELFPAY ==
[2020-08-15 22:03] VITALS: BP 132/85; PULSE 70; RESP 16; TEMP 36.8; O2SAT 96; BMI 26.8
--- NOTE | 2020-08-15 23:18 | PC.NURSE ---
Upon palpation pt's LUQ and LLQ feels slightly more firm and distended than RUQ and RLQ. Pt denies that anything feels abnormal except for the pain. Normal BM this AM, loose BM later in the day, third BM small chunks. Was nauseated earlier in the day but no c/o nausea now.
[2020-08-15 23:20] LABS: Add Manual Diff / Slide Review NO; Basophils Absolute Auto 0 /uL (0-100); Basophils Percent Auto 0.6 % (0-2); Eosinophils Absolute Auto 300 /uL (0-450); Eosinophils Percent Auto 4.8 % (2-4); Hematocrit 43.4 % (41-53); Hemoglobin 14.9 g/dL (13.5-17.5); Lymphocytes Absolute Auto 2300 /uL (1100-4500); Lymphocytes Percent Auto 31.5 % (25-40); Mean Corpuscular HGB Conc 34.4 % (30-36); Mean Corpuscular Hemoglobin 30.3 PG (26-34); Mean Corpuscular Volume 88.2 fL (80-100); Monocytes Absolute Auto 700 /uL (0-900); Monocytes Percent Auto 9.5 % (3-14); Neutrophils Absolute Auto 3900 /uL (1500-7000); Neutrophils Percent Auto 53.6 % (50-75); Platelet Count 345 X10^3/uL (150-400); Red Blood Cell Count 4.92 X10^6/uL (4.5-5.9); Red Cell Distribution Width 12.9 % (11.6-14.8); White Blood Cell Count 7.3 X10^3/uL (4.5-11.0)
[2020-08-15 23:22] LABS: Prothrombin Time 11.2 SECONDS (10.1-12.7)
[2020-08-15 23:25] LABS: Alanine Aminotransferase 82 IU/L (<50); Albumin 4.5 g/dL (3.5-5.0); Albumin Globulin Ratio 1.5 (1.0-2.8); Alkaline Phosphatase 64 U/L (38-126); Aspartate Aminotransferase 43 IU/L (17-59); BUN Creatinine Ratio 14.1 (6-22); Bilirubin Total 0.4 mg/dL (0.2-1.3); Blood Urea Nitrogen 14 mg/dL (9-20); Calcium 9.2 mg/dL (8.4-10.2); Carbon Dioxide 28 mmol/L (22-32); Chloride 101 mmol/L (98-107); Estimated Glomerular Filt Rate > 60.0 mL/min (>60); Glucose 90 mg/dL (70-100); HEMOLYSIS < 15 (0-50); Lipase 50 U/L (23-300); Potassium 3.7 mmol/L (3.4-5.1); Sodium 138 mmol/L (137-145); Total Protein 7.5 g/dL (6.3-8.2)
[2020-08-15 23:35] LABS: PTT Partial Thromboplastin Tim 28 SECONDS (26.4-36.2)
--- NOTE | 2020-08-15 23:35 | DI.RAD.S_ITS ---
PROCEDURE: XR ACUTE ABDOMEN SERIES INDICATIONS: abdominal pain TECHNIQUE: One view chest and two views of the abdomen were acquired. COMPARISON: None. FINDINGS: Surgical changes and devices: None. Chest: Lungs are clear. Heart size is normal. No pleural effusions. No pneumoperitoneum. Abdomen: Bowel gas pattern is normal. No suspicious calcifications. Visualized solid organ contours appear normal. Bones: No suspicious bony lesions. IMPRESSION: No acute disease process. Dictated by: Aria Graff MD, PhD on 08/16/2020 at 8:48 Approved by: Aria Graff MD, PhD on 08/16/2020 at 8:48
--- NOTE | 2020-08-16 01:05 | ED_ITS ---
HPI - Abdominal Pain General Chief Complaint: Abdominal Pain Stated Complaint: STOMACH PAINS Time Seen by Provider: 08/16/20 00:03 Source: patient Mode of arrival: Ambulatory Limitations: no limitations History of Present Illness HPI narrative: This is a 35-year-old male comes in with complaint of abdominal discomfort. Patient states he woke up this morning and developed pain after bowel movement. Patient states and describes her epigastric discomfort without any radiation elsewhere. Does state it sort of is a crossed the top of the abdomen. Patient denies any fevers or chills. He had some mild nausea but no vomiting. He had a normal bowel movement this morning followed by slightly softer 1 afterwards. He has not any bowel movements since other than some is a very small amounts. He denies any melena or hematochezia. He has not had any urinary symptoms no dysuria, frequency or sense of urgency. He denies any back, flank pain or pain radiating to his chest. Patient denies any shortness of adriana th. He has not had similar symptoms in the past. Patient does take omeprazole for heartburn. He has not appreciated any other heartburn symptoms. He denies any prior surgeries except for 2 surgeries on his right eye when he was younger. Patient states he is allergic to penicillin. Related Data Previous Rx's Medication Instructions Recorded naproxen [Naprosyn] 500 mg PO BID PRN #20 tab 09/20/19 albuterol sulfate 90 mcg/actuation 2 puff INHALATION Q4-6H PRN #8.5 g 05/19/20 aerosol inhaler inhalational spacing device #1 ea 05/19/20 ketoconazole 2 % topical cream 1 applic TOPICAL BID #15 g 06/03/20 omeprazole 40 mg capsule,delayed 40 mg PO DAILY #90 cap 06/03/20 release triamcinolone acetonide 0.1 % 1 applic TOPICAL BID #15 g 06/03/20 topical cream meloxicam [Mobic] 7.5 mg PO BID PRN #14 tab 08/16/20 Allergies Allergy/AdvReac Type Severity Reaction Status Date / Time Penicillins Allergy Rash Verified 08/15/20 13:30 Review of Systems Review of Systems ROS Unobtainable: All systems reviewed & are unremarkable except as noted in HPI and below Patient History Medical History Acid reflux Blunt injury, right eye (~2000) Chronic back pain Chronic cough Eczema Elevated LFTs Fractures History of bipolar disorder Left knee pain Tinea Well adult exam Surgical History Anesthesia H/O eye surgery (~04/08/00) Family History (Updated 06/11/20 @ 21:21 by Vesna Ball) Mother Breast cancer Social History Smoking Status: Former smoker Smoking Status: Former smoker alcohol intake frequency: 0-2 drinks per day Substance Use Type: marijuana Exam Narrative Exam Narrative: GENERAL: Alert and oriented x three, well-nourished male in mild distress. HEENT: Head normocephalic, atraumatic, EOMI, pupil reactive on left, on right patient has scarring of scleral and cornea consistent with history of prior surgery, face symmetric, moist mucous membranes NECK: Supple, full range of motion CARDIOVASCULAR: Regular rate and rhythm without murmurs, rubs or gallops. RESPIRATORY: Breath sounds equal bilaterally, no wheezes rales or rhonchi. ABDOMEN: Soft, positive for epigastric and right upper quadrant tenderness. Normoactive bowel sounds all 4 quadrants. No guarding or rebound, rigidity, no mass, no bruit or pulsatile mass. : No CVA tenderness EXTREMITIES: Normal range of motion, no clubbing or edema. Neurovascularly intact NEUROLOGICAL: Cranial nerves II through XII grossly intact. Moving all extremities SKIN: Warm, dry, no petechiae, no rashes or lesions. Initial Vital Signs Initial Vital Signs: Vital Signs Temperature 98.2 F 08/15/20 22:03 Pulse Rate 70 08/15/20 22:03 Respiratory Rate 16 08/15/20 22:03 Blood Pressure 132/85 08/15/20 22:03 Pulse Oximetry 96 08/15/20 22:03 Course Orders Ordered: ED Orders 08/15/20 23:06 Complete Blood Count AUTO DIFF Stat Comprehensive Metabolic Panel Stat Lipase Stat Partial Thromboplastin Time Stat Prothrombin Time INR Stat 08/15/20 23:35 XR acute abdomen series Stat 08/16/20 01:11 US abdomen complete Stat Discontinued Medications Ketorolac Tromethamine (Ketorolac 30 Mg/Ml Vial) 15 mg IV NOW ONE Stop: 08/16/20 01:12 Last Admin: 08/16/20 01:21 Dose: 15 mg Documented by: ROSSI Pantoprazole Sodium (Pantoprazole 40 Mg Vial) 40 mg IV NOW ONE Stop: 08/16/20 01:12 Last Admin: 08/16/20 01:21 Dose: 40 mg Documented by: ROSSI Vital Signs Vital signs: Vital Signs - 8 hr 08/15/20 22:03 08/16/20 03:24 Temperature 98.2 F 97.8 F Pulse Rate 70 52 L Respiratory Rate 16 16 Blood Pressure 132/85 108/75 Pulse Oximetry 96 100 MDM - Abdominal Pain Lab Data Attestation: I reviewed the patient's lab results. Result diagrams: 08/15/20 23:06 08/15/20 23:06 Labs: Lab Results 08/15/20 08/15/20 08/15/20 Range/Units 23:06 23:06 23:06 WBC 7.3 (4.5-11.0) X10^3/uL RBC 4.92 (4.5-5.9) X10^6/uL Hgb 14.9 (13.5-17.5) g/dL Hct 43.4 (41-53) % MCV 88.2 (80-100) fL MCH 30.3 (26-34) PG MCHC 34.4 (30-36) % RDW 12.9 (11.6-14.8) % Plt Count 345 (150-400) X10^3/uL Neut % (Auto) 53.6 (50-75) % Lymph % (Auto) 31.5 (25-40) % Tarrant % (Auto) 9.5 (3-14) % Eos % (Auto) 4.8 H (2-4) % Baso % (Auto) 0.6 (0-2) % Neut # (Auto) 3900 (6740-7298) /uL Lymph # (Auto) 2300 (1320-2503) /uL Tarrant # (Auto) 700 (0-900) /uL Eos # (Auto) 300 (0-450) /uL Baso # (Auto) 0 (0-100) /uL PT 11.2 (10.1-12.7) SECONDS INR 1.0 (0.9-1.3) APTT 28 (26.4-36.2) SECONDS Sodium 138 (137-145) mmol/L Potassium 3.7 (3.4-5.1) mmol/L Chloride 101 (98-107) mmol/L Carbon Dioxide 28 (22-32) mmol/L BUN 14 (9-20) mg/dL Creatinine 0.99 (0.66-1.25) mg/dL Estimated GFR > 60.0 (>60) mL/min BUN/Creatinine Ratio 14.1 (6-22) Glucose 90 (70-100) mg/dL Calcium 9.2 (8.4-10.2) mg/dL Total Bilirubin 0.4 (0.2-1.3) mg/dL AST 43 (17-59) IU/L ALT 82 H (<50) IU/L Alkaline Phosphatase 64 (38-126) U/L Total Protein 7.5 (6.3-8.2) g/dL Albumin 4.5 (3.5-5.0) g/dL Globulin 3.0 (1.7-4.1) g/dL Albumin/Globulin Ratio 1.5 (1.0-2.8) Lipase 50 (23-300) U/L Point of care testing: Urine Dip Bedside Urine Glucose Negative Bedside Urine Bilirubin - Negative Bedside Urine Ketone - Negative Urine Specific Sawyer 1.030 Bedside Urine Occult Blood - Negative Bedside Urine pH 6.0 Bedside Urine Protein - Negative Bedside Urine Urobilinogen - Negative Bedside Urine Nitrite - Negative Bedside Urine Leukocytes - Negative Esterase Imaging Data Abdominal x-ray: Radiologist's Impression: Acute abdominal series. Question slight bibasilar atelectasis. No active cardiopulmonary pathology. Normal bowel gas pattern with mild fecal retention. US - abdomen: Radiologist's Impression: prelim-right hydro. no other acute changes noted. Official US-bed XT ptosis. No sonographic features of acute cholecystitis o bstructive uropathy. MDM Narrative Medical decision making narrative: This is a 35-year-old male who comes in with complaint of kind of abdominal epigastric pain which radiates to both sides that started acutely earlier during the day. Patient had some improvement with Toradol here in the department. His labs do not show any acute changes, urine is negative. X-ray shows possible right atelectasis and mild fecal retention. Patient has not had any symptoms consistent with pneumonia or upper respiratory infection. His ultrasound shows possible right hydro but he does not have any flank, or right lower abdominal pain on final report this is not appreciated. Patient's urine is negative he has normal ureteral jets patient I discussed plan for watchful waiting he does feel improved at this time. Discussed return pre cautions and patient feels comfortable with this plan. Discharge Plan Departure Patient Disposition: Home Clinical Impression: Abdominal pain Instructions: DI for Abdominal Pain-Adult Activity Restrictions/Additional Instructions: Follow up for recheck if your symptoms do not resolve or improve. May take Tylenol up to a 1000 mg every 8 hours as needed pain. If inadequate may take prescription pain medication as prescribed. You may take medication as prescribed take 1 tablet every 12 hours as needed for pain. Prescription was sent to [facility] in [place]. Please return for fevers, new or worsening abdominal, back or flank pain, persistent vomiting, black or bloody stools, difficulty with urination, bloody urination, new chest pain, shortness of breath or other new or concerning symp toms. Prescriptions: New meloxicam [Mobic] 7.5 mg tablet 7.5 mg PO BID PRN (Reason: pain) Qty: 14 RF: 0 No Action albuterol sulfate 90 mcg/actuation HFA aerosol inhaler 2 puff inhalation Q4-6H PRN (Reason: shortness of breath or wheezing) Qty: 8.5 RF: 0 (DME) Aerochamber MV Spacer See Rx Instructions .ROUTE .MEDSUPPLY Qty: 1 RF: 0 triamcinolone acetonide 0.1 % cream 1 applic topical BID Qty: 15 RF: 1 ketoconazole 2 % cream 1 applic topical BID Qty: 15 RF: 1 omeprazole 40 mg capsule,delayed release(DR/EC) 40 mg PO DAILY Qty: 90 RF: 1 naproxen [Naprosyn] 500 mg tablet 500 mg PO BID PRN (Reason: pain) Qty: 20 RF: 0 Referrals: Marino Draper, [Primary Care Provider] -
--- NOTE | 2020-08-16 01:11 | DI.US.S_ITS ---
PROCEDURE: US ABDOMEN COMPLETE INDICATIONS: EPIGASTRIC/ABDOMINAL PAIN TECHNIQUE: Real-time scanning was performed of the abdominal and retroperitoneal organs, with image documentation. COMPARISON: None. FINDINGS: Liver: Liver is normal in size and homogeneous in echotexture. Main portal vein measures 9.8 millimeters. Hepatopetal flow noted in the main portal vein. Liver is diffusely echogenic. Gallbladder: Gallbladder is sonographically normal. No gallstones. No gallbladder wall thickening. No pericholecystic fluid. No sonographic Cerrato sign. Biliary ducts: Intrahepatic bile ducts are non-dilated. Extrahepatic biliary system is obscured by bowel gas and cannot be evaluated. Pancreas: Obscured by bowel gas and cannot be evaluated. Spleen: Spleen is normal in size and homogeneous in echotexture. Kidneys: Kidneys are normal in size and echotexture. Right kidney measures 11.4 cm long; left kidney measures 14.3 cm long. No hydronephrosis or nephrolithiasis. No solid masses. Aorta: Visualized aorta is normal in caliber at less than 3 cm. Iliacs: Proximal common iliac arteries are normal in caliber at less than 2.5 cm. IVC: Intrahepatic inferior vena cava is patent. Miscellaneous: No free abdominal fluid. Prevoid urinary bladder volume 240 cubic centimeters. Bilateral ureteral jets identified. IMPRESSION: 1. Echogenic liver. Finding typically represents fatty infiltration; however, finding is nonspecific and correlation with clinical and laboratory findings is recommended to exclude other etiologies including hepatic cirrhosis. 2. No sonographic evidence of cholelithiasis or cholecystitis. If there is continued clinical concern for cholecystitis, a nuclear medicine HIDA scan should be considered for further evaluation. Dictated by: Aria Graff MD, PhD on 08/16/2020 at 8:19 Approved by: Aria Graff MD, PhD on 08/16/2020 at 8:22
[2020-08-16] MEDS: KETOROLAC 30 MG/ML VIAL 15 MG IV (01:21)
[2020-08-16] MEDS: PANTOPRAZOLE 40 MG VIAL IV (01:21)
[2020-08-16 03:24] VITALS: BP 108/75; PULSE 52; RESP 16; TEMP 36.6; O2SAT 100
== END 2020-08-16 03:25 | disposition home or self-care (01) ==
PROVIDERS: Emergency Provider Emergency Medicine; PCP Family Medicine
DX: R10.13 Epigastric pain (principal)
CPT/HCPCS: 36415; 74022; 76700; 80053; 81003; 83690; 85025; 85610; 85730; 96374; 96375; 99281; 99284; C9113; J1885

== ENCOUNTER → 2020-08-22 10:58 | Outpatient (CLI) | payer OTHER, MEDICAID, SELFPAY ==
--- NOTE | 2020-08-22 10:59 | DI.US.S_ITS ---
PROCEDURE: US ABDOMEN LIMITED INDICATIONS: ?HERNIA VS DIASTASTIS RECTI BETWEEN EPIGASTRIUM/UMBILICUS TECHNIQUE: Real-time scanning was performed of the abdominal wall with attention to the rectus abdominus to assess for potential hernia or diastasis rectus. COMPARISON: None. FINDINGS: There is no ventral hernia identified in the midline abdominal wall. The medial margins of the rectus abdominus muscle bellies are by approximately 1.3 centimeters, with 2 centimeters commonly accepted as the upper limit of normal. IMPRESSION: No findings of diastasis rectus or ventral hernia. Please see discussion above. Dictated by: Shaka Velasquez M.D. on 08/22/2020 at 14:18 Approved by: Shaka Velasquez M.D. on 08/22/2020 at 14:20
== END ==
PROVIDERS: PCP Family Medicine; Referring Provider Registered Nurse Diabetes Educator; Visit Provider Registered Nurse Diabetes Educator
DX: R10.9 Unspecified abdominal pain (principal)
CPT/HCPCS: 76705

== ENCOUNTER 2021-08-16 15:18 | Emergency (ER) | payer OTHER, MEDICAID, SELFPAY ==
[2021-08-16 15:28] VITALS: BP 148/97; PULSE 73; RESP 16; TEMP 36.4; O2SAT 98; BMI 25.7
[2021-08-16] MEDS: BUPIVACAINE 0.25% (PF) VIAL 5 ML SUBCUT (16:38)
[2021-08-16] MEDS: OXYCODONE/ACETAMINOPHEN 5/325 TABLET 1 TAB PO (16:38)
[2021-08-16] MEDS: KETOROLAC 30 MG/ML VIAL 15 MG IM (16:38)
[2021-08-16] MEDS: CLINDAMYCIN 150 MG CAPSULE 450 MG PO (17:24)
--- NOTE | 2021-08-16 17:28 | ED.DENTAL ---
HPI - Dental/Oral <JAMES Rosales - Last Filed: 08/16/21 17:35> General Chief complaint: Dental/Oral Stated complaint: Tooth pain, states exposed nerve Time Seen by Provider: 08/16/21 16:17 Source: patient Mode of arrival: Ambulatory History of Present Illness HPI Narrative: This is a 36-year-old male presents to the emergency department with left-sided lower dental pain due to dental today and states he has an exposed nerve and was unable to get through to [facility] today due to their system being down states that his pain is 20/10. He states that he took some pain medication at 1000 hours, endorses the worse than the pain he has ever had, he denies any discharge coming from his DKA he, he endorses some localized swelling, and pain deep in his jaw, he denies any large lump like an abscess, denies fever,, denies any difficulty eating food but states that his pain is unbearable this time. Related Data Previous Rx's Medication Instructions Recorded ketoconazole 2 % topical cream 1 applic TOPICAL BID #15 g 06/03/20 triamcinolone acetonide 0.1 % 1 applic TOPICAL BID #15 g 06/03/20 topical cream meloxicam 7.5 mg tablet 7.5 mg PO BID #14 tab 08/17/20 omeprazole 40 mg capsule,delayed 40 mg PO DAILY #90 cap 12/05/20 release benzocaine 20 %-menthol 0.1 %-zinc 1 ea MUCOUS MEMBRANE Q2HR PRN #5.1 08/16/21 chloride 0.15 % mucosal gel g (Orajel 3X Mouth Sores) clindamycin HCl 150 mg capsule 450 mg PO TID 7 Days #63 cap 08/16/21 hydrocodone 5 mg-acetaminophen 325 1 tab PO BID PRN #14 tab 08/16/21 mg tablet ketorolac 10 mg tablet 10 mg PO Q8H PRN #20 tab 08/16/21 Allergies Allergy/AdvReac Type Severity Reaction Status Date / Time Penicillins Allergy Rash Verified 08/17/20 08:57 Review of Systems <JAMES Rosales - Last Filed: 08/16/21 17:35> Review of Systems Narrative: General: denies fever, chills, malaise, sweats, fatigue Head/Neck: denies headache, neck pain, dizziness, left-sided lower dental pain Eyes: denies visual changes, eye pain Cardio: denies chest pain, palpitations, edema Respiratory: denies dyspnea, cough, orthopnea GI: denies abdominal pain, nausea, vomiting, or diarrhea : denies dysuria, hematuria, urinary retention, frequency or incontinence MSK: denies joint pain, muscle weakness Skin: denies rash, itching, skin lesions or other Neuro: denies numbness, tingling Patient History <JAMES Rosales - Last Filed: 08/16/21 17:35> Medical History Acid reflux Blunt injury, right eye (~2000) Chronic back pain Chronic cough Eczema Elevated LFTs Fractures History of bipolar disorder Left knee pain Tinea Well adult exam Surgical History Anesthesia H/O eye surgery (~04/08/00) Family History Mother Breast cancer Social History Smoking Status: Former smoker Smoking Status: Former smoker alcohol intake frequency: 0-2 drinks per day Substance Use Type: marijuana Exam <JAMES Rosales - Last Filed: 08/16/21 17:35> Narrative Exam Narrative: Independently reviewed vitals signs and nursing notes. General: cooperative, comfortable, in no acute distress, well developed and well groomed Head: atraumatic, symmetrical facial expressions Neck: supple, atraumatic, without lymphadenopathy. Eyes: pupils equal round and reactive, EOMI, conjunctiva normal Nose: nares patent, no rhinorrhea Mouth/Throat: uvula midline, moist mucus membranes, dental decays present in multiple teeth, primarily where he is complaining of pain with ecchymosis erythema extending below his teeth approximately 1 cm. Mild edema, dental block given locally with 0.25% bupivacaine in front of behind and below decayed tooth on lower left mandible. Patient tolerated well, no purulence drainage, no fluctuance, no abscess present. MSK: moves all extremities, ambulatory w/steady gait, neurovascularly intact, no weakness Skin: brisk capillary refill, no rash, no erythema Neuro: normal speech and cognition, A&O x3, normal tone Psych: mental status is grossly normal, congruent mood, normal affect, pleasant and cooperative Initial Vital Signs Initial Vital Signs: Vital Signs Temperature 97.5 F L 08/16/21 15:28 Pulse Rate 73 08/16/21 15:28 Respiratory Rate 16 08/16/21 15:28 Blood Pressure 148/97 H 08/16/21 15:28 Pulse Oximetry 98 08/16/21 15:28 <Tala Pichardo DO - Last Filed: 08/17/21 16:06> Initial Vital Signs Initial Vital Signs: Vital Signs Temperature 97.5 F L 08/16/21 15:28 Pulse Rate 73 08/16/21 15:28 Respiratory Rate 16 08/16/21 15:28 Blood Pressure 148/97 H 08/16/21 15:28 Pulse Oximetry 98 08/16/21 15:28 Course <JAMES Rosales - Last Filed: 08/16/21 17:35> Orders Ordered: Discontinued Medications Bupivacaine HCl (Bupivacaine 0.25% (Pf) Vial) 5 ml SUBCUT NOW ONE Stop: 08/16/21 16:28 Last Admin: 08/16/21 16:38 Dose: 5 ml Documented by: MITZY Clindamycin HCl (Clindamycin 150 Mg Capsule) 300 mg PO NOW ONE Stop: 08/16/21 17:03 Clindamycin HCl (Clindamycin 150 Mg Capsule) 450 mg PO NOW ONE Stop: 08/16/21 17:05 Last Admin: 08/16/21 17:24 Dose: 450 mg Documented by: MARIO Ketorolac Tromethamine (Ketorolac 30 Mg/Ml Vial) 15 mg IM NOW ONE Stop: 08/16/21 16:28 Last Admin: 08/16/21 16:38 Dose: 15 mg Documented by: MITZY Oxycodone/Acetaminophen (Oxycodone/Acetaminophen 5/325 Tablet) 1 tab PO NOW ONE Stop: 08/16/21 16:28 Last Admin: 08/16/21 16:38 Dose: 1 tab Documented by: MITZY Vital Signs Vital signs: Vital Signs - 8 hr 08/16/21 15:28 Temperature 97.5 F L Pulse Rate 73 Respiratory Rate 16 Blood Pressure 148/97 H Pulse Oximetry 98 <Tala Pichardo DO - Last Filed: 08/17/21 16:06> Orders Ordered: Discontinued Medications Bupivacaine HCl (Bupivacaine 0.25% (Pf) Vial) 5 ml SUBCUT NOW ONE Stop: 08/16/21 16:28 Last Admin: 08/16/21 16:38 Dose: 5 ml Documented by: MITZY Clindamycin HCl (Clindamycin 150 Mg Capsule) 300 mg PO NOW ONE Stop: 08/16/21 17:03 Clindamycin HCl (Clindamycin 150 Mg Capsule) 450 mg PO NOW ONE Stop: 08/16/21 17:05 Last Admin: 08/16/21 17:24 Dose: 450 mg Documented by: MARIO Ketorolac Tromethamine (Ketorolac 30 Mg/Ml Vial) 15 mg IM NOW ONE Stop: 08/16/21 16:28 Last Admin: 08/16/21 16:38 Dose: 15 mg Documented by: MITZY Oxycodone/Acetaminophen (Oxycodone/Acetaminophen 5/325 Tablet) 1 tab PO NOW ONE Stop: 08/16/21 16:28 Last Admin: 08/16/21 16:38 Dose: 1 tab Documented by: MITZY Vital Signs Vital signs: Vital Signs - 8 hr 08/16/21 15:28 Temperature 97.5 F L Pulse Rate 73 Respiratory Rate 16 Blood Pressure 148/97 H Pulse Oximetry 98 MDM - Dental/Oral <JAMES Rosales - Last Filed: 08/16/21 17:35> [facility] Narrative Medical decision making narrative: This is a 36-year-old male with history of poor dental hygiene and dental decay who presents emergency department complaining of lower left mandible dental pain which extends the blow his tooth which he states is due to an exposed nerve. He was unable to get through to the [facility] today because their phone system was down. Patient was given Toradol, percocet and clindamycin for gingival infection with an allergy to amoxicillin. He was given a dental block with 0.25% bupivacaine, he states that he feels 100 times better, tolerated well, no purulence drainage came from wound, patient nontoxic appearing, he has melena insurance and is only able to use [facility] he states. He will try again tomorrow but unfortunately there phone system was down today. He was provided a prescription for hydrocodone, Toradol tabs, Orajel, and clindamycin. Patient was gracious and agreeable to discharge home. Patient is appropriate and amenable to discharge home. Vital signs are stable on repeat examination is unremarkable. Patient has been informed of results. Patient has been given strict return to ER precautions for any new or worsening symptoms. Patient understands to follow up closely with outpatient providers as instructed. Patient understands plan and agrees to discharge home. All questions and concerns answered at this time. Discharge Plan Departure Patient Disposition: Home Clinical Impression: Dental infection, Pain due to dental caries Instructions: Tooth Decay, DI for Dental Pain Activity Restrictions/Additional Instructions: *You have been diagnosed with dental decay, and dental pain. Please call [facility] tomorrow, hopefully their system is back up, good luck and hopefully your pain is better controlled at least you are on antibiotics so castro be getting worse. Please start taking clindamycin 3 times a day for the next 7 days, you can take Toradol starting tomorrow every 6 hours as needed for pain with food and water as this can upset your stomach. You can take hydrocodone for breakthrough pain, you can use topical Orajel as well. Please pick this up at the pharmacy to. I wish you the best, hang in there, and thinks for trusting us with your care. *What to do: *Please continue to take your regular medications as directed. [x ] New medication prescriptions sent to your pharmacy: [ [facility]] [ ] New medication written as a paper prescription [ ] No new medications given *Please follow up with your primary care provider in 2-3 days, call for an appointment. Let them know you were seen in the Emergency Department and that we asked that you be seen for follow-up. We will electronically transmit a record of today's note if your PCP is in our system *If you do not have a primary care provider please contact [phone] to establish care with one of the [facility] primary care providers. *Return to Emergency Department if you should have any new, worsening or concerning symptoms, such as [fever greater than 101F, chills, worsening pain, persistent vomiting or other bothersome symptoms] Prescriptions: New clindamycin HCl 150 mg capsule 450 mg PO TID 7 Days Qty: 63 0RF Orajel 3X Mouth Sores 20-0.1-0.15 % gel 1 ea mucous membrane Q2HR PRN (Reason: pain) Qty: 5.1 0RF ketorolac 10 mg tablet 10 mg PO Q8H PRN (Reason: pain) Qty: 20 0RF hydrocodone-acetaminophen 5-325 mg tablet 1 tab PO BID PRN (Reason: pain) Qty: 14 0RF No Action omeprazole 40 mg capsule,delayed release(DR/EC) 40 mg PO DAILY Qty: 90 2RF triamcinolone acetonide 0.1 % cream 1 applic topical BID Qty: 15 1RF Rx Instructions: Use for eczema ketoconazole 2 % cream 1 applic topical BID Qty: 15 1RF Rx Instructions: Use for fungal infection meloxicam 7.5 mg tablet 7.5 mg PO BID Qty: 14 0RF Referrals: Marino Draper DO [Primary Care Provider] - <Tala Pichardo DO - Last Filed: 08/17/21 16:06> Cosign ED Attending Cosignature Attestation: I was immediately available in the department for consultation. Documentation has been reviewed. I agree with assessment and plan.
== END 2021-08-16 17:40 | disposition home or self-care (01) ==
PROVIDERS: Emergency Provider Nurse Practitioner Critical Care Medicine; PCP Family Medicine
DX: K04.7 Periapical abscess without sinus (principal); K02.9 Dental caries, unspecified
CPT/HCPCS: 96372; 99283; J1885

== ENCOUNTER → 2021-09-14 09:29 | Outpatient (CLI) | payer OTHER, MEDICAID, SELFPAY ==
[2021-09-14 10:02] LABS: Add Manual Diff / Slide Review NO; Basophils Absolute Auto 0 /uL (0-100); Basophils Percent Auto 0.5 % (0-2); Eosinophils Absolute Auto 200 /uL (0-450); Eosinophils Percent Auto 2.7 % (2-4); Hematocrit 44.4 % (41-53); Hemoglobin 15.4 g/dL (13.5-17.5); Lymphocytes Absolute Auto 1700 /uL (1100-4500); Lymphocytes Percent Auto 26.7 % (25-40); Mean Corpuscular HGB Conc 34.8 % (30-36); Mean Corpuscular Hemoglobin 30.5 PG (26-34); Mean Corpuscular Volume 87.8 fL (80-100); Monocytes Absolute Auto 400 /uL (0-900); Monocytes Percent Auto 6.7 % (3-14); Neutrophils Absolute Auto 4100 /uL (1500-7000); Neutrophils Percent Auto 63.4 % (50-75); Platelet Count 375 X10^3/uL (150-400); Red Blood Cell Count 5.06 X10^6/uL (4.5-5.9); Red Cell Distribution Width 13.1 % (11.6-14.8); White Blood Cell Count 6.5 X10^3/uL (4.5-11.0)
[2021-09-14 11:01] LABS: Alanine Aminotransferase 82 IU/L (<50); Albumin 4.9 g/dL (3.5-5.0); Albumin Globulin Ratio 1.7 (1.0-2.8); Alkaline Phosphatase 64 U/L (38-126); Aspartate Aminotransferase 42 IU/L (17-59); BUN Creatinine Ratio 13.6 (6-22); Bilirubin Total 0.6 mg/dL (0.2-1.3); Blood Urea Nitrogen 12 mg/dL (9-20); Calcium 9.5 mg/dL (8.4-10.2); Carbon Dioxide 31 mmol/L (22-32); Chloride 100 mmol/L (98-107); Cholesterol 161 mg/dL (140-199); Estimated Glomerular Filt Rate > 60 mL/min (>60); Globulin 2.9 g/dL (1.7-4.1); Glucose 103 mg/dL (70-100); HDL Cholesterol 44 mg/dL (40-60); HEMOLYSIS < 15 (0-50); LDL Cholesterol Calculated 84 mg/dL (<100); Potassium 4.5 mmol/L (3.4-5.1); Sodium 139 mmol/L (137-145); Total Protein 7.8 g/dL (6.3-8.2); Triglycerides 167 mg/dL (35-150)
== END ==
PROVIDERS: PCP Family Medicine; Referring Provider Family Medicine; Visit Provider Family Medicine
DX: Z00.00 Encounter for general adult medical examination without abnormal findings (principal); K21.9 Gastro-esophageal reflux disease without esophagitis
CPT/HCPCS: 36415; 80053; 80061; 85025

== ENCOUNTER → 2021-09-19 08:49 | Outpatient (CLI) | payer OTHER, MEDICAID, SELFPAY ==
--- NOTE | 2021-09-19 08:50 | DI.RAD.S_ITS ---
PROCEDURE: XR KNEE LT 3V INDICATIONS: persistent L knee pain TECHNIQUE: 3 views of the knee were acquired. COMPARISON: [facility], , XR KNEE LT 3V, 08/01/2020, 10:51. FINDINGS: Bones: No fractures or dislocations. No suspicious bony lesions. Soft tissues: Moderate joint effusion. No suspicious soft tissue calcifications. IMPRESSION: Moderate effusion. No visualized acute fracture or dislocation. However, if clinical concern and/or pain persist, short interval imaging followup in 7-10 days is recommended, as occult injury cannot be definitively excluded. Dictated by: Monse Hewitt M.D. on 09/19/2021 at 14:30 Approved by: Monse Hewitt M.D. on 09/19/2021 at 14:31
== END ==
PROVIDERS: PCP Family Medicine; Referring Provider Family Medicine; Visit Provider Family Medicine
DX: Z00.00 Encounter for general adult medical examination without abnormal findings (principal); M25.462 Effusion, left knee; M25.562 Pain in left knee; G89.29 Other chronic pain
CPT/HCPCS: 73562

== ENCOUNTER → 2022-02-07 11:40 | Outpatient (CLI) | payer OTHER, MEDICAID, SELFPAY ==
--- NOTE | 2022-02-07 11:41 | DI.MRI.S_ITS ---
PROCEDURE: MR KNEE LT WO CON INDICATIONS: continued left knee pain TECHNIQUE: Noncontrast sagittal PD fast spin echo and T2 fast spin echo with fat saturation, sagittal 3-D FLASH with fat saturation; coronal T1 spin echo and PD fast spin echo with fat saturation, and axial PD fast spin echo with fat saturation through the knee. COMPARISON: [facility], CR, XR KNEE LT 3V, 09/19/2021, 8:39. FINDINGS: Image quality: Excellent. 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 Mild anterior translation of the tibia relative to the distal femur is noted. Posterior Cruciate Ligament: Intact. Medial Collateral Ligament: Intact. Lateral Collateral Ligament: Intact. Medial Meniscus: Horizontal oblique tearing of the body of the medial meniscus extending to the middle third of the tibial articular surface. Lateral Meniscus: Intact. Medial and Lateral Tendons: The semimembranosus tendon insertions and meniscocapsular junction appear intact. Visualized portions of the pes anserinus tendons appear normal. No abnormal bursal fluid. The long and short heads of the biceps femoris tendon appear intact. The popliteus tendon appears intact. No signs of posterolateral corner injury. Iliotibial band appears normal. Anterior Structures: Mild patella mandi. The distal quadriceps tendon is intact. 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 No edema in the infrapatellar fat pad. Bones: No acute trabecular bone injury or fracture. Medial Femorotibial Cartilage: Intact. Lateral Femorotibial Cartilage: Intact. Patellofemoral Cartilage: There is mild shallow cartilage fissuring at the trochlear groove.. Soft Tissues: A physiologic amount of joint fluid is present. Trace medial popliteal cyst. The musculature surrounding the knee is normal in bulk. IMPRESSION: 1. 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 2. Horizontal oblique tearing of the body of the medial meniscus extending to the middle third of the tibial articular surface. 3. Mild patella mandi. 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 The tibial tubercle-trochlear groove distance is within normal limits. Approved by: Cliff Baugh M.D. on 02/07/2022 at 13:15
== END ==
PROVIDERS: Family Provider Family Medicine; PCP Family Medicine; Referring Provider Family Medicine; Visit Provider Family Medicine
DX: S83.512A Sprain of anterior cruciate ligament of left knee, initial encounter (principal); S83.242A Other tear of medial meniscus, current injury, left knee, initial encounter; M25.562 Pain in left knee
CPT/HCPCS: 73721

== ENCOUNTER 2022-03-08 11:15 | Outpatient (RCR) | payer OTHER, MEDICAID, SELFPAY ==
--- NOTE | 2021-11-16 18:49 | PT.OIE ---
Current Diagnoses Other chronic pain (11/16/21) Pain in left knee (11/16/21) Difficulty in walking, not elsewhere classified (11/16/21) Abnormal posture (11/16/21) Weakness (11/16/21) Past Medical History (Last Updated 09/14/21 @ 18:45 by Marino Draper DO) Acid reflux Blunt injury, right eye (~2000) Chronic back pain Chronic cough Eczema Elevated LFTs Fractures GERD (gastroesophageal reflux disease) History of bipolar disorder Left knee pain Tinea Well adult exam Past Surgical History (Last Updated 11/01/21 @ 14:11 by Arely Lynn RN) Anesthesia H/O eye surgery (~04/08/00) Visit Care Team Role Provider Type Marino Draper DO Attending Provider Physician Family Provider Primary Care Provider Referring Provider Specialty: Family Practice Address: [address] [place] [address], [facility] Email: [email or web address] [facility] Initial Evaluation PT-OP-A Visit Information Start: 11/15/21 17:52 Freq: Status: Active Protocol: Document 11/16/21 13:50 [facility] (Rec: 11/16/21 14:52 [facility] [id number]) Out-Patient Physical Therapy Visit Information Visit Information Visit Type Initial Evaluation Visit Note 24 visits per year Visit Start Time 13:50 Visit Stop Time 14:30 Total Visit Minutes 40 Visit Number 1 Number of DEVELOPMENTAL MATHEMATICS INSTRUCTOR Visits 0 PT-OP-B Current Condition Start: 11/15/21 17:52 Freq: Status: Active Protocol: Document 11/16/21 13:50 [facility] (Rec: 11/16/21 14:52 [facility] [id number]) Current Condition History of Current Condition Onset Date 2014 Current Complaints L knee History of Current Condition Pt was skateboarding and came down from a high jump and came down hard on it as he was higher from the ground than he thoguht. he couldn't walk on it initially,but didn't get insurance so didn't get it checked out. This happened in 2014. It improved slightly between the initial incident and the hike incident. A couple years ago, his knee twisted and came under him med when stepping on a root and had inc pain. Pt reports knee gives out occ on him. He hasn' t been able to skateboard sicne the initial injury. Notes leg feels like a toothpick. If he bends it wrong, or lifts something too heavy, he can feel it. He is limited re: finding work d/t he is not comofrtable lifting heavy things d/t it hurts the knee. When he is stadnign it feels like it is going to buckle inwards sometimes. The thought of his injury makes him cringe still. He tires to run to play w/his kiddos but it is very unable and he is unable to really run. He doenst feel like knee would be stable if he has to catch himself on it. He has been trying to get on bike. he has been doing some mini squats and other exercises to try to keep his leg strong. Pt reports upper scap pain into head. Pt reports knee feels more fragile now. When he gets the sharp pain, it feels like it brings him back to the original trama. Treatment Goals Patient/Caregiver Goals be able to run w/o fear of it giving out, be able ride his skateboard PT-OP-C Subjective Start: 11/15/21 17:52 Freq: Status: Active Protocol: Document 11/16/21 13:50 [facility] (Rec: 11/16/21 14:52 [facility] [id number]) Patient Questionnaires Lower Extremity Functional Scale LEFS Score 30/80 OP-PT Pain Assessment Location L knee Pain Location Details med knee Intensity 10 Scale Used Numeric (0 - 10) Description Cramping,Sharp,With Movement Description- Other gives out Frequency Intermittent Pain Duration sometimes all day thing, sometimes w/movements Pain Aggravating Factors Activity,Walking,Stair Climbing,Lifting Other Pain Aggravating Factors moving a bad way, run Pain Alleviating Factors Inactivity PT-OP-D Balance Start: 11/15/21 17:52 Freq: Status: Active Protocol: Document 11/16/21 13:50 [facility] (Rec: 11/16/21 14:52 [facility] [id number]) Balance Tests Single Limb Standing Single Limb- Right >30 sec w/lat shear towards end Single Limb- Left 27 sec pain, lat shear of pelvis, knee bent, rotated R, IR of LLE PT-OP-F Manual Assessment Start: 11/15/21 17:52 Freq: Status: Active Protocol: Document 11/16/21 13:50 [facility] (Rec: 11/16/21 14:52 [id number] Manual Assessments Soft Tissue Assessment Soft Tissue Mobility Assessment tender at med joint line Joint Mobility Assessment Joint Mobility Assessment L rearfoot varus, &forefoot varus; ER femur, IR tibia, L foot ER, arch L collapsed more than R PT-OP-G Mobility & Gait Start: 11/15/21 17:52 Freq: Status: Active Protocol: Document 11/16/21 13:50 [facility] (Rec: 11/16/21 14:52 [id number] OP Gait Assessment Comments Gait Comments harder foot slap LLE, dec push off B, lat lean over LLE PT-OP-J Posture/Palpation/Skin Start: 11/15/21 17:52 Freq: Status: Active Protocol: Document 11/16/21 13:50 [facility] (Rec: 11/16/21 14:52 [id number] Posture Evaluation [facility] Postural Classification System Lumbar Protective Mechanism Left AP 0 Lumbar Protective Mechanism Right AP 3 Lumbar Protective Mechanism Left PA 1 Lumbar Protective Mechanism Right PA 1 PT-OP-K Range of Motion Start: 11/15/21 17:52 Freq: Status: Active Protocol: Document 11/16/21 13:50 [facility] (Rec: 11/16/21 14:52 [facility] [id number]) Knee Goniometric Range of Motion Knee Right Flexion Active (degrees) 140 Extension Active (degrees) 0 Left Flexion Active (degrees) 134 Extension Active (degrees) 0 PT-OP-L Special Tests Start: 11/15/21 17:52 Freq: Status: Active Protocol: Document 11/16/21 13:50 [facility] (Rec: 11/16/21 14:52 [facility] [id number]) Special Tests Lumbar Spine Special Tests Slump Test Results neg Knee Special Tests Elsy Test Test Results posiitve w/ER of tibia into ext-pain & lock sensation Apley's Compression Test Results neg Posterior Draw Test Results neg Young Chondromalacia Test Results neg no pain w/ex Lucila's Test Results neg Paniagua's Compression Test Results neg Corie's Test Test Results positive L Straight Leg Raise Test Results 72 R; 64 L Gordon Comments L tight hip flexors, RF & TFL Thessaly Test 20 Degrees Test Results neg for pain-feels unstable Varus- 25 Degrees Test Results neg L Valgus- 25 Degrees Test Results positive for laxity in 0 deg & 25 sec & unstable position, Pt guards PT-OP-M Strength Start: 11/15/21 17:52 Freq: Status: Active Protocol: Document 11/16/21 13:50 [facility] (Rec: 11/16/21 14:52 [facility] [id number]) Hip Strength Hip Manual Muscle Testing Right Flexion (L2) 5 Normal Extension (S1) 5 Normal Abduction 5 Normal Adduction 5 Normal External Rotation 5 Normal Internal Rotation 5 Normal Left Flexion (L2) 4- Good- Extension (S1) 3+ Fair+ Abduction 4- Good- Adduction 3+ Fair+ External Rotation 4 Good Internal Rotation 4 Good Comments Dec trunk stability w/LE testing -dec core connection to LE Knee Strength Knee Manual Muscle Testing Right Flexion (S2) 5 Normal Extension (L3) 5 Normal Left Flexion (S2) 4+ Good+ Extension (L3) 4- Good- Ankle/Foot Strength Ankle and Foot Manual Muscle Testing Right Dorsiflexion (L4) 5 Normal Plantarflexion (S1) 5 Normal Comments 20 heel raises Left Dorsiflexion (L4) 5 Normal Plantarflexion (S1) 5 Normal Comments 20 heel raises-pain in knee & made knee feel weak PT-OP-T Assessment and Plan Start: 11/15/21 17:52 Freq: Status: Active Protocol: Document 11/16/21 13:50 [facility] (Rec: 11/16/21 14:52 [facility] [id number]) Physical Therapy Assessment Rehab Potential Rehabilitation Potential Good Evaluation Complexity Number of Personal Factors/Comorbidities 1-2 Number of Body Systems Impaired 4 or More Clinical Presentation at Evaluation Evolving Impairments Impairments Activity Tolerance,Balance, Functional Activities, Functional Mobility,Gait,Pain, Posture,ROM,Soft Tissue Mobility,Strength Goals balacne Chcf Goal (LTG) Pt will be able to do SLS for 30 sec on L side w/o lat shear of pelvis or use of UEs or pain LTG Duration 02/16 stairs Protein Scientist Goal (LTG) Pt will be able to descend stairs fwd reciprocally w/o rail w/o pain or feeling of instability. LTG Duration 02/16 activities Short Term Goal (STG) pt will be able to walk and stand w/o feeling of LLE giving out STG Duration 01/16 Protein Scientist Goal (LTG) Pt will be able to run to play w/kids w/o pain, and fear of LE giving out and be able to skateboard. LTG Duration 02/16 strength Short Term Goal (STG) Pt will be consistant and indep w/performance of HEP STG Duration 01/16 Protein Scientist Goal (LTG) Pt will score at least 3/5 on LPM into all planes and 5/5 on MMT LEs B to shwo improved stability to dec pt feelign of instability. LTG Duration 02/16 LEFS Impairment 30/80 Short Term Goal (STG) Pt will score at least 45/80 on LEFS to show improved function. STG Duration 01/06 [facility] Goal (LTG) Pt will score at least 70/80 on LEFS to show improved function. LTG Duration 02/16 Assessment Summary Assessment Pt presents w/L knee pain after skateboarding injury 7 years ago that he was unable to get checked d/t lack of insurance with reinjury a few years ago hiking. He has med knee pain since the 1st injury and it cont to get worse and pt feels very unstable on LLE and avoids activities including lifting, running, skateboarding and is very careful w/all movements d/t this pain and instability. He was positive for Elsy testing and had jt line tenderness indicating possible medial meniscal injury and laxity w/MCL testing. He has signifciant LLE weakness and dec connection of LLE to trunk and significantly impaired balacne. He would benefit from skilled PT to address these deficits and return him back to more activity w/o pain. He may benefit from further imaging d/t special test results (MRI) and possible ortho referral. Physical Therapy Plan Frequency and Duration Frequency of Treatment 1-2x/week Duration of Treatment 3 months Plan of Care Start Date 11/16/21 Plan of Care End Date 02/16/22 Therapeutic Interventions Therapeutic Interventions Aquatic Therapy,Balance Training,Gait Training,Home Exercise Program,Joint Mobilizations,Manual Therapy, Neuromuscular Re-education, Orthotic/Prosthetic Management ,Patient/Caregiver Education, Self-Care/Home Management,Soft Tissue Mobilization,Taping, Therapeutic Activities, Therapeutic Exercises Modalities Cold Pack/Ice Massage,Electric Stimulation,Hot Packs, Infrared Therapy,Iontophoresis ,Ultrasound Next Visit Focus/Plan Next Note Type Treatment Note Next Visit Plan Look at pt's form w/current exercises, work on hip and foto mobility and soft tissue tightness to dec rotational force on knee
--- NOTE | 2021-11-16 18:49 | PT.OPPOC ---
Physical, Occupational & Speech Therapy At [facility] Current Diagnoses Other chronic pain (11/16/21) Pain in left knee (11/16/21) Difficulty in walking, not elsewhere classified (11/16/21) Abnormal posture (11/16/21) Weakness (11/16/21) Visit Care Team Role Provider Type Marino Draper DO Attending Provider Physician Family Provider Primary Care Provider Referring Provider Specialty: Family Practice Address: [address] [place] [address], [facility] Email: [email or web address] Plan Of Care PT-OP-T Assessment and Plan Start: 11/15/21 17:52 Freq: Status: Active Protocol: Document 11/16/21 13:50 [facility] (Rec: 11/16/21 14:52 [facility] [id number]) Physical Therapy Assessment Rehab Potential Rehabilitation Potential Good Evaluation Complexity Number of Personal Factors/Comorbidities 1-2 Number of Body Systems Impaired 4 or More Clinical Presentation at Evaluation Evolving Impairments Impairments Activity Tolerance,Balance, Functional Activities, Functional Mobility,Gait,Pain, Posture,ROM,Soft Tissue Mobility,Strength Goals balacne Mica Machine Operator Goal (LTG) Pt will be able to do SLS for 30 sec on L side w/o lat shear of pelvis or use of UEs or pain LTG Duration 02/16 stairs Senior Living Goal (LTG) Pt will be able to descend stairs fwd reciprocally w/o rail w/o pain or feeling of instability. LTG Duration 02/16 activities Short Term Goal (STG) pt will be able to walk and stand w/o feeling of LLE giving out STG Duration 01/16 Senior Living Goal (LTG) Pt will be able to run to play w/kids w/o pain, and fear of LE giving out and be able to skateboard. LTG Duration 02/16 strength Short Term Goal (STG) Pt will be consistant and indep w/performance of HEP STG Duration 01/16 Senior Living Goal (LTG) Pt will score at least 3/5 on LPM into all planes and 5/5 on MMT LEs B to shwo improved stability to dec pt feelign of instability. LTG Duration 02/16 LEFS Impairment 30/80 Short Term Goal (STG) Pt will score at least 45/80 on LEFS to show improved function. STG Duration 01/06 Senior Living Goal (LTG) Pt will score at least 70/80 on LEFS to show improved function. LTG Duration 02/16 Assessment Summary Assessment Pt presents w/L knee pain after skateboarding injury 7 years ago that he was unable to get checked d/t lack of insurance with reinjury a few years ago hiking. He has med knee pain since the 1st injury and it cont to get worse and pt feels very unstable on LLE and avoids activities including lifting, running, skateboarding and is very careful w/all movements d/t this pain and instability. He was positive for Elroy testing and had jt line tenderness indicating possible medial meniscal injury and laxity w/MCL testing. He has signifciant LLE weakness and dec connection of LLE to trunk and significantly impaired balacne. He would benefit from skilled PT to address these deficits and return him back to more activity w/o pain. He may benefit from further imaging d/t special test results (MRI) and possible ortho referral. Physical Therapy Plan Frequency and Duration Frequency of Treatment 1-2x/week Duration of Treatment 3 months Plan of Care Start Date 11/16/21 Plan of Care End Date 02/16/22 Therapeutic Interventions Therapeutic Interventions Aquatic Therapy,Balance Training,Gait Training,Home Exercise Program,Joint Mobilizations,Manual Therapy, Neuromuscular Re-education, Orthotic/Prosthetic Management ,Patient/Caregiver Education, Self-Care/Home Management,Soft Tissue Mobilization,Taping, Therapeutic Activities, Therapeutic Exercises Modalities Cold Pack/Ice Massage,Electric Stimulation,Hot Packs, Infrared Therapy,Iontophoresis ,Ultrasound Next Visit Focus/Plan Next Note Type Treatment Note Next Visit Plan Look at pt's form w/current exercises, work on hip and foto mobility and soft tissue tightness to dec rotational force on knee Plan of Care Dates Plan of Care Start Date 11/16/21 Plan of Care End Date 02/16/22 Electronically Signed by: Nga Tadeo, PT 11/16/21 1031 If you are in agreement with this Plan of Care, please return a signed and dated copy. I have reviewed this Plan of Care and certify that the skilled therapy services above are required to meet the patient?s needs. Physician Signature Date Printed Name and Credentials Clinical Instructor Signature Printed Name and Credentials
--- NOTE | 2021-11-21 11:23 | PT.OTN ---
Current Diagnoses Other chronic pain (11/21/21) Pain in left knee (11/21/21) Difficulty in walking, not elsewhere classified (11/21/21) Abnormal posture (11/21/21) Weakness (11/21/21) Physical Therapy Treatment Note PT-OP-A Visit Information Start: 11/15/21 17:52 Freq: Status: Active Protocol: Document 11/21/21 09:41 [facility] (Rec: 11/21/21 11:22 [facility] [id number]) Out-Patient Physical Therapy Visit Information Visit Information Visit Type Treatment Note Visit Note 24 visits per year Visit Start Time 10:36 Visit Stop Time 11:16 Total Visit Minutes 40 Visit Number 2 Number of BLASTING GANG MINER Visits 0 PT-OP-B Current Condition Start: 11/15/21 17:52 Freq: Status: Active Protocol: Document 11/16/21 13:50 [facility] (Rec: 11/16/21 14:52 [facility] [id number]) Current Condition History of Current Condition Onset Date 2014 Current Complaints L knee History of Current Condition Pt was skateboarding and came down from a high jump and came down hard on it as he was higher from the ground than he thoguht. he couldn't walk on it initially,but didn't get insurance so didn't get it checked out. This happened in 2014. It improved slightly between the initial incident and the hike incident. A couple years ago, his knee twisted and came under him med when stepping on a root and had inc pain. Pt reports knee gives out occ on him. He hasn' t been able to skateboard sicne the initial injury. Notes leg feels like a toothpick. If he bends it wrong, or lifts something too heavy, he can feel it. He is limited re: finding work d/t he is not comofrtable lifting heavy things d/t it hurts the knee. When he is stadnign it feels like it is going to buckle inwards sometimes. The thought of his injury makes him cringe still. He tires to run to play w/his kiddos but it is very unable and he is unable to really run. He doenst feel like knee would be stable if he has to catch himself on it. He has been trying to get on bike. he has been doing some mini squats and other exercises to try to keep his leg strong. Pt reports upper scap pain into head. Pt reports knee feels more fragile now. When he gets the sharp pain, it feels like it brings him back to the original trama. Treatment Goals Patient/Caregiver Goals be able to run w/o fear of it giving out, be able ride his skateboard PT-OP-C Subjective Start: 11/15/21 17:52 Freq: Status: Active Protocol: Document 11/21/21 09:41 [facility] (Rec: 11/21/21 11:22 [facility] [id number]) OP-PT Subjective Patient Comments Patient Comments Reports he knows he rolled his ankles and maybe even fractured them back when skateboarding PT-OP-D Balance Start: 11/15/21 17:52 Freq: Status: Active Protocol: Document 11/16/21 13:50 [facility] (Rec: 11/16/21 14:52 [facility] [id number]) Balance Tests Single Limb Standing Single Limb- Right >30 sec w/lat shear towards end Single Limb- Left 27 sec pain, lat shear of pelvis, knee bent, rotated R, IR of LLE PT-OP-F Manual Assessment Start: 11/15/21 17:52 Freq: Status: Active Protocol: Document 11/16/21 13:50 [facility] (Rec: 11/16/21 14:52 [facility] [id number]) Manual Assessments Soft Tissue Assessment Soft Tissue Mobility Assessment tender at med joint line Joint Mobility Assessment Joint Mobility Assessment L rearfoot varus, &forefoot varus; ER femur, IR tibia, L foot ER, arch L collapsed more than R PT-OP-G Mobility & Gait Start: 11/15/21 17:52 Freq: Status: Active Protocol: Document 11/16/21 13:50 [facility] (Rec: 11/16/21 14:52 [facility] [id number]) OP Gait Assessment Comments Gait Comments harder foot slap LLE, dec push off B, lat lean over LLE PT-OP-J Posture/Palpation/Skin Start: 11/15/21 17:52 Freq: Status: Active Protocol: Document 11/16/21 13:50 [facility] (Rec: 11/16/21 14:52 [facility] [id number]) Posture Evaluation [facility] Postural Classification System Lumbar Protective Mechanism Left AP 0 Lumbar Protective Mechanism Right AP 3 Lumbar Protective Mechanism Left PA 1 Lumbar Protective Mechanism Right PA 1 PT-OP-K Range of Motion Start: 11/15/21 17:52 Freq: Status: Active Protocol: Document 11/16/21 13:50 [facility] (Rec: 11/16/21 14:52 [facility] [id number]) Knee Goniometric Range of Motion Knee Right Flexion Active (degrees) 140 Extension Active (degrees) 0 Left Flexion Active (degrees) 134 Extension Active (degrees) 0 PT-OP-L Special Tests Start: 11/15/21 17:52 Freq: Status: Active Protocol: Document 11/16/21 13:50 [facility] (Rec: 11/16/21 14:52 [facility] [id number]) Special Tests Lumbar Spine Special Tests Slump Test Results neg Knee Special Tests Elsy Test Test Results posiitve w/ER of tibia into ext-pain & lock sensation Apley's Compression Test Results neg Posterior Draw Test Results neg Young Chondromalacia Test Results neg no pain w/ex Lucila's Test Results neg Paniagua's Compression Test Results neg Corie's Test Test Results positive L Straight Leg Raise Test Results 72 R; 64 L Gordon Comments L tight hip flexors, RF & TFL Thessaly Test 20 Degrees Test Results neg for pain-feels unstable Varus- 25 Degrees Test Results neg L Valgus- 25 Degrees Test Results positive for laxity in 0 deg & 25 sec & unstable position, Pt guards PT-OP-M Strength Start: 11/15/21 17:52 Freq: Status: Active Protocol: Document 11/16/21 13:50 [facility] (Rec: 11/16/21 14:52 [facility] [id number]) Hip Strength Hip Manual Muscle Testing Right Flexion (L2) 5 Normal Extension (S1) 5 Normal Abduction 5 Normal Adduction 5 Normal External Rotation 5 Normal Internal Rotation 5 Normal Left Flexion (L2) 4- Good- Extension (S1) 3+ Fair+ Abduction 4- Good- Adduction 3+ Fair+ External Rotation 4 Good Internal Rotation 4 Good Comments Dec trunk stability w/LE testing -dec core connection to LE Knee Strength Knee Manual Muscle Testing Right Flexion (S2) 5 Normal Extension (L3) 5 Normal Left Flexion (S2) 4+ Good+ Extension (L3) 4- Good- Ankle/Foot Strength Ankle and Foot Manual Muscle Testing Right Dorsiflexion (L4) 5 Normal Plantarflexion (S1) 5 Normal Comments 20 heel raises Left Dorsiflexion (L4) 5 Normal Plantarflexion (S1) 5 Normal Comments 20 heel raises-pain in knee & made knee feel weak PT-OP-Q Treatments Start: 11/15/21 17:52 Freq: Status: Active Protocol: Document 11/21/21 09:41 [facility] (Rec: 11/21/21 11:22 [facility] [id number]) Therapeutic Exercises Supine Exercises stretch Supine Exercise Name 1. HS 2. ITB Side bilateral Reps/Minutes 30 sec ea core Supine Exercise Name DL press Side bilateral Reps/Minutes 30 sec ea Standing Exercises SL Standing Exercise Name stance w/hand on wall Side left Reps/Minutes 30 sec squat Side bilateral Reps/Minutes 10 Comments min cues for sitting back & glute squeeze up stretch Standing Exercise Name quad Side left Reps/Minutes 30 sec Manual Therapy Treatment Soft Tissue Mobilization adductors Body Location L Mobilization Type Rolling,Strumming Intensity/Depth Moderate Body Position Supine quad Body Location L VMO borders Mobilization Type Rolling Intensity/Depth Moderate Comments w/SAQ Joint Mobilizations ankle Comments 1. calcaneal distraction & lat glide w/tile 2. talar distraction & AP glide FM tibfib Comments distal AP tib FM tibfem Comments IR FM L PT-OP-T Assessment and Plan Start: 11/15/21 17:52 Freq: Status: Active Protocol: Document 11/21/21 09:41 [facility] (Rec: 11/21/21 11:22 [facility] [id number]) Physical Therapy Assessment Goals balacne Tack Cleaner Goal (LTG) Pt will be able to do SLS for 30 sec on L side w/o lat shear of pelvis or use of UEs or pain LTG Duration 02/16 stairs Tack Cleaner Goal (LTG) Pt will be able to descend stairs fwd reciprocally w/o rail w/o pain or feeling of instability. LTG Duration 02/16 activities Short Term Goal (STG) pt will be able to walk and stand w/o feeling of LLE giving out STG Duration 01/16 Longterm Goal (LTG) Pt will be able to run to play w/kids w/o pain, and fear of LE giving out and be able to skateboard. LTG Duration 02/16 strength Short Term Goal (STG) Pt will be consistant and indep w/performance of HEP STG Duration 01/16 Tack Cleaner Goal (LTG) Pt will score at least 3/5 on LPM into all planes and 5/5 on MMT LEs B to shwo improved stability to dec pt feelign of instability. LTG Duration 02/16 LEFS Impairment 30/80 Short Term Goal (STG) Pt will score at least 45/80 on LEFS to show improved function. STG Duration 01/06 Tack Cleaner Goal (LTG) Pt will score at least 70/80 on LEFS to show improved function. LTG Duration 02/16 Assessment Summary Assessment Pt did well with his squats just cued ot sit back more. he did well with other new exercises without pain. He reports knee feeling better after manual work today Physical Therapy Plan Frequency and Duration Frequency of Treatment 1-2x/week Duration of Treatment 3 months Plan of Care Start Date 11/16/21 Plan of Care End Date 02/16/22 Next Visit Focus/Plan Next Note Type Treatment Note Next Visit Plan review exercises, try gait at wall, cont to work hip and foot mobility & soft tissue tightness to dec rot forces on knee
--- NOTE | 2021-11-27 17:52 | PT.OTN ---
Current Diagnoses Other chronic pain (11/27/21) Pain in left knee (11/27/21) Difficulty in walking, not elsewhere classified (11/27/21) Abnormal posture (11/27/21) Weakness (11/27/21) Physical Therapy Treatment Note PT-OP-A Visit Information Start: 11/15/21 17:52 Freq: Status: Active Protocol: Document 11/27/21 16:51 [facility] (Rec: 11/27/21 17:52 [facility] [id number]) Out-Patient Physical Therapy Visit Information Visit Information Visit Type Treatment Note Visit Note 24 visits per year Visit Start Time 16:53 Visit Stop Time 17:31 Total Visit Minutes 39 Visit Number 3 Number of MOLD SHOP SUPERVISOR Visits 0 PT-OP-B Current Condition Start: 11/15/21 17:52 Freq: Status: Active Protocol: Document 11/16/21 13:50 [facility] (Rec: 11/16/21 14:52 [facility] [id number]) Current Condition History of Current Condition Onset Date 2014 Current Complaints L knee History of Current Condition Pt was skateboarding and came down from a high jump and came down hard on it as he was higher from the ground than he thoguht. he couldn't walk on it initially,but didn't get insurance so didn't get it checked out. This happened in 2014. It improved slightly between the initial incident and the hike incident. A couple years ago, his knee twisted and came under him med when stepping on a root and had inc pain. Pt reports knee gives out occ on him. He hasn' t been able to skateboard sicne the initial injury. Notes leg feels like a toothpick. If he bends it wrong, or lifts something too heavy, he can feel it. He is limited re: finding work d/t he is not comofrtable lifting heavy things d/t it hurts the knee. When he is stadnign it feels like it is going to buckle inwards sometimes. The thought of his injury makes him cringe still. He tires to run to play w/his kiddos but it is very unable and he is unable to really run. He doenst feel like knee would be stable if he has to catch himself on it. He has been trying to get on bike. he has been doing some mini squats and other exercises to try to keep his leg strong. Pt reports upper scap pain into head. Pt reports knee feels more fragile now. When he gets the sharp pain, it feels like it brings him back to the original trama. Treatment Goals Patient/Caregiver Goals be able to run w/o fear of it giving out, be able ride his skateboard PT-OP-C Subjective Start: 11/15/21 17:52 Freq: Status: Active Protocol: Document 11/27/21 16:51 [facility] (Rec: 11/27/21 17:52 [facility] [id number]) OP-PT Subjective Patient Comments Patient Comments pt reports compliance w/ exercises. Was fine after last session. PT-OP-D Balance Start: 11/15/21 17:52 Freq: Status: Active Protocol: Document 11/16/21 13:50 [facility] (Rec: 11/16/21 14:52 [facility] [id number]) Balance Tests Single Limb Standing Single Limb- Right >30 sec w/lat shear towards end Single Limb- Left 27 sec pain, lat shear of pelvis, knee bent, rotated R, IR of LLE PT-OP-F Manual Assessment Start: 11/15/21 17:52 Freq: Status: Active Protocol: Document 11/16/21 13:50 [facility]16/21 [facility]52 [id number] Manual Assessments Soft Tissue Assessment Soft Tissue Mobility Assessment tender at med joint line Joint Mobility Assessment Joint Mobility Assessment L rearfoot varus, &forefoot varus; ER femur, IR tibia, L foot ER, arch L collapsed more than R PT-OP-G Mobility & Gait Start: 11/15/21 17:52 Freq: Status: Active Protocol: Document 11/16/21 13:50 [facility] (Rec: 11/16/21 14:52 [facility] [id number]) OP Gait Assessment Comments Gait Comments harder foot slap LLE, dec push off B, lat lean over LLE PT-OP-J Posture/Palpation/Skin Start: 11/15/21 17:52 Freq: Status: Active Protocol: Document 11/16/21 13:50 [facility] (Rec: 11/16/21 14:52 [facility] [id number]) Posture Evaluation [facility] Postural Classification System Lumbar Protective Mechanism Left AP 0 Lumbar Protective Mechanism Right AP 3 Lumbar Protective Mechanism Left PA 1 Lumbar Protective Mechanism Right PA 1 PT-OP-K Range of Motion Start: 11/15/21 17:52 Freq: Status: Active Protocol: Document 11/16/21 13:50 [facility] (Rec: 11/16/21 14:52 [facility] [id number]) Knee Goniometric Range of Motion Knee Right Flexion Active (degrees) 140 Extension Active (degrees) 0 Left Flexion Active (degrees) 134 Extension Active (degrees) 0 PT-OP-L Special Tests Start: 11/15/21 17:52 Freq: Status: Active Protocol: Document 11/16/21 13:50 [facility] (Rec: 11/16/21 14:52 [facility] [id number]) Special Tests Lumbar Spine Special Tests Slump Test Results neg Knee Special Tests Elsy Test Test Results posiitve w/ER of tibia into ext-pain & lock sensation Apley's Compression Test Results neg Posterior Draw Test Results neg Young Chondromalacia Test Results neg no pain w/ex Lucila's Test Results neg Paniagua's Compression Test Results neg Corie's Test Test Results positive L Straight Leg Raise Test Results 72 R; 64 L Gordon Comments L tight hip flexors, RF & TFL Thessaly Test 20 Degrees Test Results neg for pain-feels unstable Varus- 25 Degrees Test Results neg L Valgus- 25 Degrees Test Results positive for laxity in 0 deg & 25 sec & unstable position, Pt guards PT-OP-M Strength Start: 11/15/21 17:52 Freq: Status: Active Protocol: Document 11/16/21 13:50 [facility] (Rec: 11/16/21 14:52 [facility] [id number]) Hip Strength Hip Manual Muscle Testing Right Flexion (L2) 5 Normal Extension (S1) 5 Normal Abduction 5 Normal Adduction 5 Normal External Rotation 5 Normal Internal Rotation 5 Normal Left Flexion (L2) 4- Good- Extension (S1) 3+ Fair+ Abduction 4- Good- Adduction 3+ Fair+ External Rotation 4 Good Internal Rotation 4 Good Comments Dec trunk stability w/LE testing -dec core connection to LE Knee Strength Knee Manual Muscle Testing Right Flexion (S2) 5 Normal Extension (L3) 5 Normal Left Flexion (S2) 4+ Good+ Extension (L3) 4- Good- Ankle/Foot Strength Ankle and Foot Manual Muscle Testing Right Dorsiflexion (L4) 5 Normal Plantarflexion (S1) 5 Normal Comments 20 heel raises Left Dorsiflexion (L4) 5 Normal Plantarflexion (S1) 5 Normal Comments 20 heel raises-pain in knee & made knee feel weak PT-OP-Q Treatments Start: 11/15/21 17:52 Freq: Status: Active Protocol: Document 11/27/21 16:51 [facility] (Rec: 11/27/21 17:52 [facility] [id number]) Therapeutic Exercises Supine Exercises stretch Supine Exercise Name 1. HS 2. ITB Side bilateral Reps/Minutes 30 sec ea core Supine Exercise Name DL press Side bilateral Reps/Minutes 30 sec ea Prone Exercises TKE Prone Exercise Name TKE to hip ext Side left Reps/Minutes 10 Standing Exercises lat lunge Side bilateral Equipment Used bar Reps/Minutes 10 ea Comments cues for form Gait at wall Side bilateral Reps/Minutes 10 sec x4 SL Standing Exercise Name stance w/hand on wall Side left Reps/Minutes 30 sec squat Side bilateral Reps/Minutes 8 Manual Therapy Treatment Soft Tissue Mobilization calf Body Location L med border Mobilization Type Rolling,Strumming Intensity/Depth Moderate Body Position Supine Comments w/APs adductors Body Location L Mobilization Type Rolling,Strumming Intensity/Depth Moderate Body Position Supine quad Body Location L VMO borders Mobilization Type Rolling Intensity/Depth Moderate Comments w/APs Joint Mobilizations ankle Comments talar AP FM standing tibfib Joint L Comments distal AP tib FM proximal fib inf glide PT-OP-T Assessment and Plan Start: 11/15/21 17:52 Freq: Status: Active Protocol: Document 11/27/21 16:51 [facility] (Rec: 11/27/21 17:52 [facility] [id number]) Physical Therapy Assessment Goals balacne Jail Goal (LTG) Pt will be able to do SLS for 30 sec on L side w/o lat shear of pelvis or use of UEs or pain LTG Duration 02/16 stairs Hoop Bending Machine Operator Goal (LTG) Pt will be able to descend stairs fwd reciprocally w/o rail w/o pain or feeling of instability. LTG Duration 02/16 activities Short Term Goal (STG) pt will be able to walk and stand w/o feeling of LLE giving out STG Duration 01/16 Jail Goal (LTG) Pt will be able to run to play w/kids w/o pain, and fear of LE giving out and be able to skateboard. LTG Duration 02/16 strength Short Term Goal (STG) Pt will be consistant and indep w/performance of HEP STG Duration 01/16 Jail Goal (LTG) Pt will score at least 3/5 on LPM into all planes and 5/5 on MMT LEs B to shwo improved stability to dec pt feelign of instability. LTG Duration 02/16 LEFS Impairment 30/80 Short Term Goal (STG) Pt will score at least 45/80 on LEFS to show improved function. STG Duration 01/06 Jail Goal (LTG) Pt will score at least 70/80 on LEFS to show improved function. LTG Duration 02/16 Assessment Summary Assessment Pt tolerated session well w/ less pain in lat lunge w/use of rail and cues for sit back w/lat lunge. He did well with all other exercises and did not require cues for HEP exercises. Pt reported L leg felt like a noodle after session. Physical Therapy Plan Next Visit Focus/Plan Next Note Type Treatment Note Next Visit Plan cont to work on lat lunges, start DL balance on bosu and balance board, try KT taping for med stability & Y over quad cont to work hip and foot mobility & soft tissue tightness to dec rot forces on knee
--- NOTE | 2021-11-30 14:30 | PT.OTN ---
Current Diagnoses Other chronic pain (11/30/21) Pain in left knee (11/30/21) Difficulty in walking, not elsewhere classified (11/30/21) Abnormal posture (11/30/21) Weakness (11/30/21) Physical Therapy Treatment Note PT-OP-A Visit Information Start: 11/15/21 17:52 Freq: Status: Active Protocol: Document 11/30/21 13:45 SP (Rec: 11/30/21 14:53 SP [id number]) Out-Patient Physical Therapy Visit Information Visit Information Visit Type Treatment Note Visit Note 24 visits per year Visit Start Time 13:45 Visit Stop Time 14:30 Total Visit Minutes 45 Visit Number 4 Number of MEDIA RELATIONS COORDINATOR Visits 1 PT-OP-B Current Condition Start: 11/15/21 17:52 Freq: Status: Active Protocol: Document 11/16/21 13:50 [facility] (Rec: 11/16/21 14:52 [facility] [id number]) Current Condition History of Current Condition Onset Date 2014 Current Complaints L knee History of Current Condition Pt was skateboarding and came down from a high jump and came down hard on it as he was higher from the ground than he thoguht. he couldn't walk on it initially,but didn't get insurance so didn't get it checked out. This happened in 2014. It improved slightly between the initial incident and the hike incident. A couple years ago, his knee twisted and came under him med when stepping on a root and had inc pain. Pt reports knee gives out occ on him. He hasn' t been able to skateboard sicne the initial injury. Notes leg feels like a toothpick. If he bends it wrong, or lifts something too heavy, he can feel it. He is limited re: finding work d/t he is not comofrtable lifting heavy things d/t it hurts the knee. When he is stadnign it feels like it is going to buckle inwards sometimes. The thought of his injury makes him cringe still. He tires to run to play w/his kiddos but it is very unable and he is unable to really run. He doenst feel like knee would be stable if he has to catch himself on it. He has been trying to get on bike. he has been doing some mini squats and other exercises to try to keep his leg strong. Pt reports upper scap pain into head. Pt reports knee feels more fragile now. When he gets the sharp pain, it feels like it brings him back to the original trama. Treatment Goals Patient/Caregiver Goals be able to run w/o fear of it giving out, be able ride his skateboard PT-OP-C Subjective Start: 11/15/21 17:52 Freq: Status: Active Protocol: Document 11/30/21 13:45 SP (Rec: 11/30/21 14:53 SP [id number]) OP-PT Subjective Patient Comments Patient Comments Pt reports the manual helped alot with mobiltiy last tx, alot less stiff. PT-OP-D Balance Start: 11/15/21 17:52 Freq: Status: Active Protocol: Document 11/16/21 13:50 [facility] (Rec: 11/16/21 14:52 [facility] [id number]) Balance Tests Single Limb Standing Single Limb- Right >30 sec w/lat shear towards end Single Limb- Left 27 sec pain, lat shear of pelvis, knee bent, rotated R, IR of LLE PT-OP-F Manual Assessment Start: 11/15/21 17:52 Freq: Status: Active Protocol: Document 11/16/21 13:50 [facility] (Rec: 11/16/21 14:52 [facility] [id number]) Manual Assessments Soft Tissue Assessment Soft Tissue Mobility Assessment tender at med joint line Joint Mobility Assessment Joint Mobility Assessment L rearfoot varus, &forefoot varus; ER femur, IR tibia, L foot ER, arch L collapsed more than R PT-OP-G Mobility & Gait Start: 11/15/21 17:52 Freq: Status: Active Protocol: Document 11/16/21 13:50 [facility] (Rec: 11/16/21 14:52 [facility] [id number]) OP Gait Assessment Comments Gait Comments harder foot slap LLE, dec push off B, lat lean over LLE PT-OP-J Posture/Palpation/Skin Start: 11/15/21 17:52 Freq: Status: Active Protocol: Document 11/16/21 13:50 [facility] (Rec: 11/16/21 14:52 [facility] [id number]) Posture Evaluation [facility] Postural Classification System Lumbar Protective Mechanism Left AP 0 Lumbar Protective Mechanism Right AP 3 Lumbar Protective Mechanism Left PA 1 Lumbar Protective Mechanism Right PA 1 PT-OP-K Range of Motion Start: 11/15/21 17:52 Freq: Status: Active Protocol: Document 11/16/21 13:50 [facility] (Rec: 11/16/21 14:52 [facility] [id number]) Knee Goniometric Range of Motion Knee Right Flexion Active (degrees) 140 Extension Active (degrees) 0 Left Flexion Active (degrees) 134 Extension Active (degrees) 0 PT-OP-L Special Tests Start: 11/15/21 17:52 Freq: Status: Active Protocol: Document 11/16/21 13:50 [facility] (Rec: 11/16/21 14:52 [facility] [id number]) Special Tests Lumbar Spine Special Tests Slump Test Results neg Knee Special Tests Elsy Test Test Results posiitve w/ER of tibia into ext-pain & lock sensation Apley's Compression Test Results neg Posterior Draw Test Results neg Young Chondromalacia Test Results neg no pain w/ex Lucila's Test Results neg Paniagua's Compression Test Results neg Corie's Test Test Results positive L Straight Leg Raise Test Results 72 R; 64 L Gordon Comments L tight hip flexors, RF & TFL Thessaly Test 20 Degrees Test Results neg for pain-feels unstable Varus- 25 Degrees Test Results neg L Valgus- 25 Degrees Test Results positive for laxity in 0 deg & 25 sec & unstable position, Pt guards PT-OP-M Strength Start: 11/15/21 17:52 Freq: Status: Active Protocol: Document 11/16/21 13:50 [facility] (Rec: 11/16/21 14:52 [facility] [id number]) Hip Strength Hip Manual Muscle Testing Right Flexion (L2) 5 Normal Extension (S1) 5 Normal Abduction 5 Normal Adduction 5 Normal External Rotation 5 Normal Internal Rotation 5 Normal Left Flexion (L2) 4- Good- Extension (S1) 3+ Fair+ Abduction 4- Good- Adduction 3+ Fair+ External Rotation 4 Good Internal Rotation 4 Good Comments Dec trunk stability w/LE testing -dec core connection to LE Knee Strength Knee Manual Muscle Testing Right Flexion (S2) 5 Normal Extension (L3) 5 Normal Left Flexion (S2) 4+ Good+ Extension (L3) 4- Good- Ankle/Foot Strength Ankle and Foot Manual Muscle Testing Right Dorsiflexion (L4) 5 Normal Plantarflexion (S1) 5 Normal Comments 20 heel raises Left Dorsiflexion (L4) 5 Normal Plantarflexion (S1) 5 Normal Comments 20 heel raises-pain in knee & made knee feel weak PT-OP-Q Treatments Start: 11/15/21 17:52 Freq: Status: Active Protocol: Document 11/30/21 13:45 SP (Rec: 11/30/21 14:53 SP [id number]) Gym Equipment Shuttle Balance blue Details WBOS- add next tx Comments 1. wt shift 2. HTs 3. EC Therapeutic Exercises Supine Exercises L ankle TB Supine Exercise Name added to HEP Side left Resistance TB #2 hammock Reps/Minutes x10 ankle PF w/ toe flexion, DF with toe ext, ankle IV, EV Comments MWM with TB good feedback resposne Prone Exercises TKE Prone Exercise Name TKE to hip ext Side left Reps/Minutes x10 Comments cued quad fac knee straight pre lift Sitting Exercises self STMs Sitting Exercise Name quad, HS, calf, adductor, ITB Side bilateral Resistance added HEP PRN Equipment Used rolling pin Reps/Minutes good feedback response 2 min total Comments manual and self good massage Standing Exercises lat lunge Side bilateral Equipment Used bar Reps/Minutes 10 ea Comments cues for form, knee midline with toes Gait at wall Standing Exercise Name dynamic EC- in PT Side bilateral Equipment Used light finger glide on wall Reps/Minutes 20 ft x4 laps Comments viers L but self corrections: cues space, body closer wall aware squat Standing Exercise Name next tx add foam under feet Side bilateral Reps/Minutes 8 stretch Standing Exercise Name quad- reviewed Side left Equipment Used grasp ankle behind body, quad ankle ROM stretch Reps/Minutes 30 sec each Manual Therapy Treatment Soft Tissue Mobilization calf Body Location L med border Mobilization Type Instrument Assisted,Rolling, Strumming Intensity/Depth Moderate Body Position Supine Comments w/APs, instruction on self STMs using rolling pin adductors Body Location L Mobilization Type Rolling,Strumming Intensity/Depth Moderate Body Position Supine Comments manual and instruction on self STMs using rolling pin quad Body Location L VMO borders Mobilization Type Rolling Intensity/Depth Moderate Comments w/APs, instruction on self STMs using rolling pin Taping L knee Treatment Focus medial jt line stability, support VMO Type of Tape Kinesio Tape Skin Inspection intact, normal color flesh. Comments 1. medial distal medial tib plateau to distal medial superior femoral condyle 2. VMO anchor (knee slightly flexed) distal split med/lat patella to anterior tib. Pt good understanding if no adverse reactions (redness/ itching/irritation) can keep on 2-4 days and wear in shower . If experience adverse reactions, remove immediately. Neuro Re-Education Treatment Balance Activities uneven surface Details corner balance- add to HEP Surface floor, blue cushion Equipment corner back, chair front Reps/Duration 8min Comments 1. NBOS- uneven 30 EC 2. Stagger- uneven 30 EC sway self recovery 3. Tandem- firm 30 sec EC sway self recover 3. SLS- firm floor EO 30 LLE sways self recover, RLE 25 LOB rubbing eye self recover using contact chair. PT-OP-T Assessment and Plan Start: 11/15/21 17:52 Freq: Status: Active Protocol: Document 11/30/21 13:45 SP (Rec: 11/30/21 14:53 SP [id number]) Physical Therapy Assessment Goals balacne Alf Goal (LTG) Pt will be able to do SLS for 30 sec on L side w/o lat shear of pelvis or use of UEs or pain LTG Duration 02/16 stairs Shipping Agent Goal (LTG) Pt will be able to descend stairs fwd reciprocally w/o rail w/o pain or feeling of instability. LTG Duration 02/16 activities Short Term Goal (STG) pt will be able to walk and stand w/o feeling of LLE giving out STG Duration 01/16 Shipping Agent Goal (LTG) Pt will be able to run to play w/kids w/o pain, and fear of LE giving out and be able to skateboard. LTG Duration 02/16 strength Short Term Goal (STG) Pt will be consistant and indep w/performance of HEP STG Duration 01/16 Alf Goal (LTG) Pt will score at least 3/5 on LPM into all planes and 5/5 on MMT LEs B to shwo improved stability to dec pt feelign of instability. LTG Duration 02/16 LEFS Impairment 30/80 Short Term Goal (STG) Pt will score at least 45/80 on LEFS to show improved function. STG Duration 01/06 Alf Goal (LTG) Pt will score at least 70/80 on LEFS to show improved function. LTG Duration 02/16 Assessment Summary Assessment Pt responded well to manual and instruct then self apply rolling calf, quad, HS, adductor rolling/rocking. GOod form HEP review supine/prone. Initiated balance uneven surface able EC NBOS & stagger , added in corner home, provided HO. INtiated dynamic EC gait hallway w/ HTs post cues improves spacial awareness less L viering. Physical Therapy Plan Frequency and Duration Frequency of Treatment 1-2x/week Duration of Treatment 3 months Plan of Care Start Date 11/16/21 Plan of Care End Date 02/16/22 Therapeutic Interventions Therapeutic Interventions Aquatic Therapy,Balance Training,Gait Training,Home Exercise Program,Joint Mobilizations,Manual Therapy, Neuromuscular Re-education, Orthotic/Prosthetic Management ,Patient/Caregiver Education, Self-Care/Home Management,Soft Tissue Mobilization,Taping, Therapeutic Activities, Therapeutic Exercises Modalities Cold Pack/Ice Massage,Electric Stimulation,Hot Packs, Infrared Therapy,Iontophoresis ,Ultrasound Next Visit Focus/Plan Next Note Type Treatment Note Next Visit Plan Recheck hammock ankle strengthening, corner balance, dynamic gait hallway, Next tx : shuttle bal, bosu. POC: cont to work on lat lungGeneral Atomics, start DL balance on bosu and balance board, recheck and continue if helpful KT taping for med stability & Y over quad cont to work hip and foot mobility & soft tissue tightness to dec rot forces on knee
--- NOTE | 2021-12-04 18:11 | PT.OTN ---
Current Diagnoses Other chronic pain (12/04/21) Pain in left knee (12/04/21) Difficulty in walking, not elsewhere classified (12/04/21) Abnormal posture (12/04/21) Weakness (12/04/21) Physical Therapy Treatment Note PT-OP-A Visit Information Start: 11/15/21 17:52 Freq: Status: Active Protocol: Document 12/04/21 16:47 [facility] (Rec: 12/04/21 18:11 [facility] [id number]) Out-Patient Physical Therapy Visit Information Visit Information Visit Type Treatment Note Visit Note 24 visits per year Visit Start Time 16:50 Visit Stop Time 17:30 Total Visit Minutes 40 Visit Number 5 Number of MARKETING PR INTERN Visits 0 PT-OP-B Current Condition Start: 11/15/21 17:52 Freq: Status: Active Protocol: Document 11/16/21 13:50 [facility] (Rec: 11/16/21 14:52 [facility] [id number]) Current Condition History of Current Condition Onset Date 2014 Current Complaints L knee History of Current Condition Pt was skateboarding and came down from a high jump and came down hard on it as he was higher from the ground than he thoguht. he couldn't walk on it initially,but didn't get insurance so didn't get it checked out. This happened in 2014. It improved slightly between the initial incident and the hike incident. A couple years ago, his knee twisted and came under him med when stepping on a root and had inc pain. Pt reports knee gives out occ on him. He hasn' t been able to skateboard sicne the initial injury. Notes leg feels like a toothpick. If he bends it wrong, or lifts something too heavy, he can feel it. He is limited re: finding work d/t he is not comofrtable lifting heavy things d/t it hurts the knee. When he is stadnign it feels like it is going to buckle inwards sometimes. The thought of his injury makes him cringe still. He tires to run to play w/his kiddos but it is very unable and he is unable to really run. He doenst feel like knee would be stable if he has to catch himself on it. He has been trying to get on bike. he has been doing some mini squats and other exercises to try to keep his leg strong. Pt reports upper scap pain into head. Pt reports knee feels more fragile now. When he gets the sharp pain, it feels like it brings him back to the original trama. Treatment Goals Patient/Caregiver Goals be able to run w/o fear of it giving out, be able ride his skateboard PT-OP-C Subjective Start: 11/15/21 17:52 Freq: Status: Active Protocol: Document 12/04/21 16:47 [facility] (Rec: 12/04/21 18:11 [facility] [id number]) OP-PT Subjective Patient Comments Patient Comments Pt reports taping was helpful but it was painful coming off so doens't want to do it again . He feels like the knee si more stable Patient Reported Progress Improving PT-OP-D Balance Start: 11/15/21 17:52 Freq: Status: Active Protocol: Document 11/16/21 13:50 [facility] (Rec: 11/16/21 14:52 [facility] [id number]) Balance Tests Single Limb Standing Single Limb- Right >30 sec w/lat shear towards end Single Limb- Left 27 sec pain, lat shear of pelvis, knee bent, rotated R, IR of LLE PT-OP-F Manual Assessment Start: 11/15/21 17:52 Freq: Status: Active Protocol: Document 11/16/21 13:50 [facility] (Rec: 11/16/21 14:52 [facility] [id number]) Manual Assessments Soft Tissue Assessment Soft Tissue Mobility Assessment tender at med joint line Joint Mobility Assessment Joint Mobility Assessment L rearfoot varus, &forefoot varus; ER femur, IR tibia, L foot ER, arch L collapsed more than R PT-OP-G Mobility & Gait Start: 11/15/21 17:52 Freq: Status: Active Protocol: Document 11/16/21 13:50 [facility] (Rec: 11/16/21 14:52 [facility] [id number]) OP Gait Assessment Comments Gait Comments harder foot slap LLE, dec push off B, lat lean over LLE PT-OP-J Posture/Palpation/Skin Start: 11/15/21 17:52 Freq: Status: Active Protocol: Document 11/16/21 13:50 [facility] (Rec: 11/16/21 14:52 [facility] [id number]) Posture Evaluation [facility] Postural Classification System Lumbar Protective Mechanism Left AP 0 Lumbar Protective Mechanism Right AP 3 Lumbar Protective Mechanism Left PA 1 Lumbar Protective Mechanism Right PA 1 PT-OP-K Range of Motion Start: 11/15/21 17:52 Freq: Status: Active Protocol: Document 11/16/21 13:50 [facility] (Rec: 11/16/21 14:52 [facility] [id number]) Knee Goniometric Range of Motion Knee Right Flexion Active (degrees) 140 Extension Active (degrees) 0 Left Flexion Active (degrees) 134 Extension Active (degrees) 0 PT-OP-L Special Tests Start: 11/15/21 17:52 Freq: Status: Active Protocol: Document 11/16/21 13:50 [facility] (Rec: 11/16/21 14:52 [facility] [id number]) Special Tests Lumbar Spine Special Tests Slump Test Results neg Knee Special Tests Elsy Test Test Results posiitve w/ER of tibia into ext-pain & lock sensation Apley's Compression Test Results neg Posterior Draw Test Results neg Young Chondromalacia Test Results neg no pain w/ex Lucila's Test Results neg Paniagua's Compression Test Results neg Corie's Test Test Results positive L Straight Leg Raise Test Results 72 R; 64 L Gordon Comments L tight hip flexors, RF & TFL Thessaly Test 20 Degrees Test Results neg for pain-feels unstable Varus- 25 Degrees Test Results neg L Valgus- 25 Degrees Test Results positive for laxity in 0 deg & 25 sec & unstable position, Pt guards PT-OP-M Strength Start: 11/15/21 17:52 Freq: Status: Active Protocol: Document 11/16/21 13:50 [facility] (Rec: 11/16/21 14:52 [facility] [id number]) Hip Strength Hip Manual Muscle Testing Right Flexion (L2) 5 Normal Extension (S1) 5 Normal Abduction 5 Normal Adduction 5 Normal External Rotation 5 Normal Internal Rotation 5 Normal Left Flexion (L2) 4- Good- Extension (S1) 3+ Fair+ Abduction 4- Good- Adduction 3+ Fair+ External Rotation 4 Good Internal Rotation 4 Good Comments Dec trunk stability w/LE testing -dec core connection to LE Knee Strength Knee Manual Muscle Testing Right Flexion (S2) 5 Normal Extension (L3) 5 Normal Left Flexion (S2) 4+ Good+ Extension (L3) 4- Good- Ankle/Foot Strength Ankle and Foot Manual Muscle Testing Right Dorsiflexion (L4) 5 Normal Plantarflexion (S1) 5 Normal Comments 20 heel raises Left Dorsiflexion (L4) 5 Normal Plantarflexion (S1) 5 Normal Comments 20 heel raises-pain in knee & made knee feel weak PT-OP-Q Treatments Start: 11/15/21 17:52 Freq: Status: Active Protocol: Document 12/04/21 16:47 [facility] (Rec: 12/04/21 18:11 [facility] [id number]) Gym Equipment Shuttle Balance red clips Details w/head turns Comments fwd: WBOS, NBOS & staggereds tance B side: WBOS & NBOS Therapeutic Ball HS curls Ball Size/Color 55cm Body Position Supine Reps/Duration 10 Therapeutic Exercises Supine Exercises L ankle TB Supine Exercise Name added to HEP Side left Resistance TB #2 hammock Reps/Minutes x10 ankle PF w/ toe flexion Prone Exercises TKE Prone Exercise Name TKE to hip ext Side left Reps/Minutes x10 Comments cued quad fac knee straight pre lift Standing Exercises lat lunge Side bilateral Equipment Used bar prn Reps/Minutes 8 ea Comments cues for form, knee midline with toes Manual Therapy Treatment Soft Tissue Mobilization adductors Body Location L Mobilization Type Rolling,Strumming Intensity/Depth Moderate Body Position Supine Joint Mobilizations ankle Comments talar AP FM standing tib fib AP FM standing Neuro Re-Education Treatment Balance Activities uneven surface Comments SLS on blue foam by bar prn trials B PT-OP-T Assessment and Plan Start: 11/15/21 17:52 Freq: Status: Active Protocol: Document 12/04/21 16:47 [facility] (Rec: 12/04/21 18:11 [facility] [id number]) Physical Therapy Assessment Goals balacne Atmospheric Drier Tender Goal (LTG) Pt will be able to do SLS for 30 sec on L side w/o lat shear of pelvis or use of UEs or pain LTG Duration 02/16 stairs Correction Goal (LTG) Pt will be able to descend stairs fwd reciprocally w/o rail w/o pain or feeling of instability. LTG Duration 02/16 activities Short Term Goal (STG) pt will be able to walk and stand w/o feeling of LLE giving out STG Duration 01/16 Atmospheric Drier Tender Goal (LTG) Pt will be able to run to play w/kids w/o pain, and fear of LE giving out and be able to skateboard. LTG Duration 02/16 strength Short Term Goal (STG) Pt will be consistant and indep w/performance of HEP STG Duration 01/16 Atmospheric Drier Tender Goal (LTG) Pt will score at least 3/5 on LPM into all planes and 5/5 on MMT LEs B to shwo improved stability to dec pt feelign of instability. LTG Duration 02/16 LEFS Impairment 30/80 Short Term Goal (STG) Pt will score at least 45/80 on LEFS to show improved function. STG Duration 01/06 Correction Goal (LTG) Pt will score at least 70/80 on LEFS to show improved function. LTG Duration 02/16 Assessment Summary Assessment Pt did well with exercises and unstable surfaces. he did have one instance of LLE feeling like it will give out and used rail w/lat lunge. He is improving w/knee tracking w /less cueing. Physical Therapy Plan Frequency and Duration Frequency of Treatment 1-2x/week Duration of Treatment 3 months Plan of Care Start Date 11/16/21 Plan of Care End Date 02/16/22 Next Visit Focus/Plan Next Note Type Treatment Note Next Visit Plan cont to work on lat lunges, progress DL balance on bosu and balance board cont to work hip and foot mobility & soft tissue tightness to dec rot forces on knee
--- NOTE | 2021-12-12 11:00 | PT.OTN ---
Current Diagnoses Other chronic pain (12/12/21) Pain in left knee (12/12/21) Difficulty in walking, not elsewhere classified (12/12/21) Abnormal posture (12/12/21) Weakness (12/12/21) Physical Therapy Treatment Note PT-OP-A Visit Information Start: 11/15/21 17:52 Freq: Status: Active Protocol: Document 12/12/21 09:56 NB (Rec: 12/12/21 10:37 [facility] [id number]) Out-Patient Physical Therapy Visit Information Visit Information Visit Type Treatment Note Visit Note 24 visits per year Visit Start Time 09:55 Visit Stop Time 10:33 Total Visit Minutes 38 Visit Number 6 Number of TENTERER Visits 1 PT-OP-B Current Condition Start: 11/15/21 17:52 Freq: Status: Active Protocol: Document 11/16/21 13:50 [facility] (Rec: 11/16/21 14:52 [facility] [id number]) Current Condition History of Current Condition Onset Date 2014 Current Complaints L knee History of Current Condition Pt was skateboarding and came down from a high jump and came down hard on it as he was higher from the ground than he thoguht. he couldn't walk on it initially,but didn't get insurance so didn't get it checked out. This happened in 2014. It improved slightly between the initial incident and the hike incident. A couple years ago, his knee twisted and came under him med when stepping on a root and had inc pain. Pt reports knee gives out occ on him. He hasn' t been able to skateboard sicne the initial injury. Notes leg feels like a toothpick. If he bends it wrong, or lifts something too heavy, he can feel it. He is limited re: finding work d/t he is not comofrtable lifting heavy things d/t it hurts the knee. When he is stadnign it feels like it is going to buckle inwards sometimes. The thought of his injury makes him cringe still. He tires to run to play w/his kiddos but it is very unable and he is unable to really run. He doenst feel like knee would be stable if he has to catch himself on it. He has been trying to get on bike. he has been doing some mini squats and other exercises to try to keep his leg strong. Pt reports upper scap pain into head. Pt reports knee feels more fragile now. When he gets the sharp pain, it feels like it brings him back to the original trama. Treatment Goals Patient/Caregiver Goals be able to run w/o fear of it giving out, be able ride his skateboard PT-OP-C Subjective Start: 11/15/21 17:52 Freq: Status: Active Protocol: Document 12/12/21 09:56 [facility] (Rec: 12/12/21 10:37 [facility] [id number]) OP-PT Subjective Patient Comments Patient Comments Pt states he has been trying to work out each morning and that has been helping. Today he is very sore from work. PT-OP-D Balance Start: 11/15/21 17:52 Freq: Status: Active Protocol: Document 11/16/21 13:50 [facility] (Rec: 11/16/21 14:52 [facility] [id number]) Balance Tests Single Limb Standing Single Limb- Right >30 sec w/lat shear towards end Single Limb- Left 27 sec pain, lat shear of pelvis, knee bent, rotated R, IR of LLE PT-OP-F Manual Assessment Start: 11/15/21 17:52 Freq: Status: Active Protocol: Document 11/16/21 13:50 [facility] (Rec: 11/16/21 14:52 [facility] [id number]) Manual Assessments Soft Tissue Assessment Soft Tissue Mobility Assessment tender at med joint line Joint Mobility Assessment Joint Mobility Assessment L rearfoot varus, &forefoot varus; ER femur, IR tibia, L foot ER, arch L collapsed more than R PT-OP-G Mobility & Gait Start: 11/15/21 17:52 Freq: Status: Active Protocol: Document 11/16/21 13:50 [facility] (Rec: 11/16/21 14:52 [facility] [id number]) OP Gait Assessment Comments Gait Comments harder foot slap LLE, dec push off B, lat lean over LLE PT-OP-J Posture/Palpation/Skin Start: 11/15/21 17:52 Freq: Status: Active Protocol: Document 11/16/21 13:50 [facility] (Rec: 11/16/21 14:52 [facility] [id number]) Posture Evaluation [facility] Postural Classification System Lumbar Protective Mechanism Left AP 0 Lumbar Protective Mechanism Right AP 3 Lumbar Protective Mechanism Left PA 1 Lumbar Protective Mechanism Right PA 1 PT-OP-K Range of Motion Start: 11/15/21 17:52 Freq: Status: Active Protocol: Document 11/16/21 13:50 [facility] (Rec: 11/16/21 14:52 [facility] [id number]) Knee Goniometric Range of Motion Knee Right Flexion Active (degrees) 140 Extension Active (degrees) 0 Left Flexion Active (degrees) 134 Extension Active (degrees) 0 PT-OP-L Special Tests Start: 11/15/21 17:52 Freq: Status: Active Protocol: Document 11/16/21 13:50 [facility] (Rec: 11/16/21 14:52 [facility] [id number]) Special Tests Lumbar Spine Special Tests Slump Test Results neg Knee Special Tests Elsy Test Test Results posiitve w/ER of tibia into ext-pain & lock sensation Apley's Compression Test Results neg Posterior Draw Test Results neg Young Chondromalacia Test Results neg no pain w/ex Lucila's Test Results neg Paniagua's Compression Test Results neg Corie's Test Test Results positive L Straight Leg Raise Test Results 72 R; 64 L Gordon Comments L tight hip flexors, RF & TFL Thessaly Test 20 Degrees Test Results neg for pain-feels unstable Varus- 25 Degrees Test Results neg L Valgus- 25 Degrees Test Results positive for laxity in 0 deg & 25 sec & unstable position, Pt guards PT-OP-M Strength Start: 11/15/21 17:52 Freq: Status: Active Protocol: Document 11/16/21 13:50 [facility] (Rec: 11/16/21 14:52 [facility] [id number]) Hip Strength Hip Manual Muscle Testing Right Flexion (L2) 5 Normal Extension (S1) 5 Normal Abduction 5 Normal Adduction 5 Normal External Rotation 5 Normal Internal Rotation 5 Normal Left Flexion (L2) 4- Good- Extension (S1) 3+ Fair+ Abduction 4- Good- Adduction 3+ Fair+ External Rotation 4 Good Internal Rotation 4 Good Comments Dec trunk stability w/LE testing -dec core connection to LE Knee Strength Knee Manual Muscle Testing Right Flexion (S2) 5 Normal Extension (L3) 5 Normal Left Flexion (S2) 4+ Good+ Extension (L3) 4- Good- Ankle/Foot Strength Ankle and Foot Manual Muscle Testing Right Dorsiflexion (L4) 5 Normal Plantarflexion (S1) 5 Normal Comments 20 heel raises Left Dorsiflexion (L4) 5 Normal Plantarflexion (S1) 5 Normal Comments 20 heel raises-pain in knee & made knee feel weak PT-OP-Q Treatments Start: 11/15/21 17:52 Freq: Status: Active Protocol: Document 12/12/21 09:56 [facility] (Rec: 12/12/21 10:37 [facility] [id number]) Gym Equipment Shuttle Balance red clips Details w/head turns Comments fwd: WBOS, NBOS & staggereds tance B side: WBOS & NBOS blue Details WBOS Comments 1. wt shift 2. HTs 3. EC Therapeutic Ball LTR Ball Size/Color 55cm Body Position Supine Reps/Duration 5 x 5SH ea Comments Good feedback response Just what I needed HS curls Ball Size/Color 55cm Body Position Supine Reps/Duration 10 Comments cues for hip/knee/foot alignment Therapeutic Exercises Standing Exercises lat lunge Side bilateral Equipment Used bar prn Reps/Minutes 8 ea Comments cues for form, knee midline w/ toes Manual Therapy Treatment Soft Tissue Mobilization calf Body Location L med border Mobilization Type Instrument Assisted,Rolling, Strumming Intensity/Depth Moderate Body Position Supine Comments w/APs, instruction on self STMs using rolling pin Neuro Re-Education Treatment Balance Activities uneven surface Reps/Duration 2 x 30s Comments SLS on blue foam by bar B PT-OP-T Assessment and Plan Start: 11/15/21 17:52 Freq: Status: Active Protocol: Document 12/12/21 09:56 [facility] (Rec: 12/12/21 10:37 [facility] [id number]) Physical Therapy Assessment Goals balacne Daytime Babysitter Goal (LTG) Pt will be able to do SLS for 30 sec on L side w/o lat shear of pelvis or use of UEs or pain LTG Duration 02/16 stairs Daytime Babysitter Goal (LTG) Pt will be able to descend stairs fwd reciprocally w/o rail w/o pain or feeling of instability. LTG Duration 02/16 activities Short Term Goal (STG) pt will be able to walk and stand w/o feeling of LLE giving out STG Duration 01/16 Residential Goal (LTG) Pt will be able to run to play w/kids w/o pain, and fear of LE giving out and be able to skateboard. LTG Duration 02/16 strength Short Term Goal (STG) Pt will be consistant and indep w/performance of HEP STG Duration 01/16 Residential Goal (LTG) Pt will score at least 3/5 on LPM into all planes and 5/5 on MMT LEs B to shwo improved stability to dec pt feelign of instability. LTG Duration 02/16 LEFS Impairment 30/80 Short Term Goal (STG) Pt will score at least 45/80 on LEFS to show improved function. STG Duration 01/06 Residential Goal (LTG) Pt will score at least 70/80 on LEFS to show improved function. 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 Treatment focus on balance and improving hip mobility and strength. Pt has one loss of balance in staggered stance w/ R leg back on shuttle balance and used stepping strategy to recover. Pt requires consistent cues for excessive hip ER L>R throughout treatment session. Pt demonstrates decreased palpable tightness in L calf and L ITB w/ manual therapy. Physical Therapy Plan Next Visit Focus/Plan Next Note Type Treatment Note Next Visit Plan cont to work on lat lunges, progress DL balance on bosu and balance board cont to work hip and foot mobility & soft tissue tightness to dec rot forces on knee.
--- NOTE | 2021-12-14 10:30 | PT.OTN ---
Current Diagnoses Other chronic pain (12/14/21) Pain in left knee (12/14/21) Difficulty in walking, not elsewhere classified (12/14/21) Abnormal posture (12/14/21) Weakness (12/14/21) Physical Therapy Treatment Note PT-OP-A Visit Information Start: 11/15/21 17:52 Freq: Status: Active Protocol: Document 12/14/21 09:47 SP (Rec: 12/14/21 10:35 SP [id number]) Out-Patient Physical Therapy Visit Information Visit Information Visit Type Treatment Note Visit Note 24 visits per year Visit Start Time 09:47 Visit Stop Time 10:30 Total Visit Minutes 43 Visit Number 7 Number of HERBOLOGIST Visits 2 PT-OP-B Current Condition Start: 11/15/21 17:52 Freq: Status: Active Protocol: Document 11/16/21 13:50 [facility] (Rec: 11/16/21 14:52 [facility] [id number]) Current Condition History of Current Condition Onset Date 2014 Current Complaints L knee History of Current Condition Pt was skateboarding and came down from a high jump and came down hard on it as he was higher from the ground than he thoguht. he couldn't walk on it initially,but didn't get insurance so didn't get it checked out. This happened in 2014. It improved slightly between the initial incident and the hike incident. A couple years ago, his knee twisted and came under him med when stepping on a root and had inc pain. Pt reports knee gives out occ on him. He hasn' t been able to skateboard sicne the initial injury. Notes leg feels like a toothpick. If he bends it wrong, or lifts something too heavy, he can feel it. He is limited re: finding work d/t he is not comofrtable lifting heavy things d/t it hurts the knee. When he is stadnign it feels like it is going to buckle inwards sometimes. The thought of his injury makes him cringe still. He tires to run to play w/his kiddos but it is very unable and he is unable to really run. He doenst feel like knee would be stable if he has to catch himself on it. He has been trying to get on bike. he has been doing some mini squats and other exercises to try to keep his leg strong. Pt reports upper scap pain into head. Pt reports knee feels more fragile now. When he gets the sharp pain, it feels like it brings him back to the original trama. Treatment Goals Patient/Caregiver Goals be able to run w/o fear of it giving out, be able ride his skateboard PT-OP-C Subjective Start: 11/15/21 17:52 Freq: Status: Active Protocol: Document 12/14/21 09:47 SP (Rec: 12/14/21 10:35 SP [id number]) OP-PT Subjective Patient Comments Patient Comments Pt reports R UE, interscap pain today, thinks slept wrong on R side. 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 He reports making sure pivot feet during lifting and moving things to not twist knee and injure. PT-OP-D Balance Start: 11/15/21 17:52 Freq: Status: Active Protocol: Document 11/16/21 13:50 [facility] (Rec: 11/16/21 14:52 [facility] [id number]) Balance Tests Single Limb Standing Single Limb- Right >30 sec w/lat shear towards end Single Limb- Left 27 sec pain, lat shear of pelvis, knee bent, rotated R, IR of LLE PT-OP-F Manual Assessment Start: 11/15/21 17:52 Freq: Status: Active Protocol: Document 11/16/21 13:50 [facility] (Rec: 11/16/21 14:52 [facility] [id number]) Manual Assessments Soft Tissue Assessment Soft Tissue Mobility Assessment tender at med joint line Joint Mobility Assessment Joint Mobility Assessment L rearfoot varus, &forefoot varus; ER femur, IR tibia, L foot ER, arch L collapsed more than R PT-OP-G Mobility & Gait Start: 11/15/21 17:52 Freq: Status: Active Protocol: Document 11/16/21 13:50 [facility] (Rec: 11/16/21 14:52 [facility] [id number]) OP Gait Assessment Comments Gait Comments harder foot slap LLE, dec push off B, lat lean over LLE PT-OP-J Posture/Palpation/Skin Start: 11/15/21 17:52 Freq: Status: Active Protocol: Document 11/16/21 13:50 [facility] (Rec: 11/16/21 14:52 [facility] [id number]) Posture Evaluation [facility] Postural Classification System Lumbar Protective Mechanism Left AP 0 Lumbar Protective Mechanism Right AP 3 Lumbar Protective Mechanism Left PA 1 Lumbar Protective Mechanism Right PA 1 PT-OP-K Range of Motion Start: 11/15/21 17:52 Freq: Status: Active Protocol: Document 11/16/21 13:50 [facility] (Rec: 11/16/21 14:52 [facility] [id number]) Knee Goniometric Range of Motion Knee Right Flexion Active (degrees) 140 Extension Active (degrees) 0 Left Flexion Active (degrees) 134 Extension Active (degrees) 0 PT-OP-L Special Tests Start: 11/15/21 17:52 Freq: Status: Active Protocol: Document 11/16/21 13:50 [facility] (Rec: 11/16/21 14:52 [facility] [id number]) Special Tests Lumbar Spine Special Tests Slump Test Results neg Knee Special Tests Elsy Test Test Results posiitve w/ER of tibia into ext-pain & lock sensation Apley's Compression Test Results neg Posterior Draw Test Results neg Young Chondromalacia Test Results neg no pain w/ex Lucila's Test Results neg Paniagua's Compression Test Results neg Corie's Test Test Results positive L Straight Leg Raise Test Results 72 R; 64 L Gordon Comments L tight hip flexors, RF & TFL Thessaly Test 20 Degrees Test Results neg for pain-feels unstable Varus- 25 Degrees Test Results neg L Valgus- 25 Degrees Test Results positive for laxity in 0 deg & 25 sec & unstable position, Pt guards PT-OP-M Strength Start: 11/15/21 17:52 Freq: Status: Active Protocol: Document 11/16/21 13:50 [facility] (Rec: 11/16/21 14:52 [facility] [id number]) Hip Strength Hip Manual Muscle Testing Right Flexion (L2) 5 Normal Extension (S1) 5 Normal Abduction 5 Normal Adduction 5 Normal External Rotation 5 Normal Internal Rotation 5 Normal Left Flexion (L2) 4- Good- Extension (S1) 3+ Fair+ Abduction 4- Good- Adduction 3+ Fair+ External Rotation 4 Good Internal Rotation 4 Good Comments Dec trunk stability w/LE testing -dec core connection to LE Knee Strength Knee Manual Muscle Testing Right Flexion (S2) 5 Normal Extension (L3) 5 Normal Left Flexion (S2) 4+ Good+ Extension (L3) 4- Good- Ankle/Foot Strength Ankle and Foot Manual Muscle Testing Right Dorsiflexion (L4) 5 Normal Plantarflexion (S1) 5 Normal Comments 20 heel raises Left Dorsiflexion (L4) 5 Normal Plantarflexion (S1) 5 Normal Comments 20 heel raises-pain in knee & made knee feel weak PT-OP-Q Treatments Start: 11/15/21 17:52 Freq: Status: Active Protocol: Document 12/14/21 09:47 SP (Rec: 12/14/21 10:35 SP [id number]) Gym Equipment Therapeutic Ball LTR Exercise Details resisted w/ TB #2, therapist anchored Ball Size/Color 55cm Body Position Supine Reps/Duration 5 x 5SH ea Comments Good feedback response Just what I needed- core response HS curls Exercise Details resisted w/ TB #2, therapist anchored Ball Size/Color 55cm Body Position Supine Reps/Duration 10 Comments good hip/knee/foot alignment, core response Therapeutic Exercises Supine Exercises L ankle TB Supine Exercise Name reviewed HEP active and calf stretch Side bilateral Resistance TB #2 hammock Reps/Minutes x10 ankle PF w/ toe flexion Comments ed for continue performance at home core Supine Exercise Name bicycle- self HEP review Side bilateral Reps/Minutes 30 sec ea Comments cued slow pacing, awareness of TA LS no arching- good form Prone Exercises TKE Prone Exercise Name TKE to hip ext Side left Reps/Minutes x10, 2 sec hold Comments cued quad fac knee straight pre lift- ankle not as PF more neutral Standing Exercises TKE Standing Exercise Name assessed for HEP Side left Resistance TB #3 Reps/Minutes x5 reps Comments ok then knee relaxed return and caused pain so stopped lat lunge Standing Exercise Name 3rd rep caused pain- performed deep squats to loosen up then again later Side bilateral Equipment Used open space, over yoga mat Reps/Minutes 3 reps x2 Comments cues for form, knee midline w/ toes squat Standing Exercise Name Single STS from raised table Side bilateral Equipment Used 26 table Reps/Minutes 8 Comments cued knee alignment Manual Therapy Treatment Soft Tissue Mobilization R lateral neck/scap Body Location R UT, LS, rhomboid, infraspinatus, LT Mobilization Type Strumming,Sustained Pressure Intensity/Depth Moderate Body Position Sidelying Comments manual and instruction on self STMs using ball wall and theracane, showed MWM tennis ball supine under interscap w/ breath and arm movement - good releases. calf Body Location L med border calf and HS Mobilization Type Instrument Assisted,Rolling, Strumming Intensity/Depth Moderate Body Position Supine Comments manual, discussed rolling pin and performing at home. quad Body Location L VMO borders Mobilization Type Rolling Intensity/Depth Moderate Comments w/APs, instruction on self STMs using rolling pin Joint Mobilizations tibfib Joint L Comments distal AP tib FM proximal fib inf glide tibfem Joint L Comments APs, PAs Self-Care/Home Management Treatment Education Patient Education Home Exercise Program,Joint Protection,Pain Management, Posture,Safety Other Education Time spent discussion RUT/LS scap stretch/ PNF, open book and use pillows sleeping to decrease pain interscap/distal LS region. MWM tennis ball under interscap and FF/UE ROM for decrease pain, and use breath for releases. Good feedback response. PT-OP-T Assessment and Plan Start: 11/15/21 17:52 Freq: Status: Active Protocol: Document 12/14/21 09:47 SP (Rec: 12/14/21 10:35 SP [id number]) Physical Therapy Assessment Impairments Impairments Activity Tolerance,Balance, Functional Activities, Functional Mobility,Gait,Pain, Posture,ROM,Soft Tissue Mobility,Strength Goals balacne Avionics Safety Inspector Goal (LTG) Pt will be able to do SLS for 30 sec on L side w/o lat shear of pelvis or use of UEs or pain LTG Duration 02/16 stairs Assisted Goal (LTG) Pt will be able to descend stairs fwd reciprocally w/o rail w/o pain or feeling of instability. LTG Duration 02/16 activities Short Term Goal (STG) pt will be able to walk and stand w/o feeling of LLE giving out STG Duration 01/16 Assisted Goal (LTG) Pt will be able to run to play w/kids w/o pain, and fear of LE giving out and be able to skateboard. LTG Duration 02/16 strength Short Term Goal (STG) Pt will be consistant and indep w/performance of HEP STG Duration 01/16 Assisted Goal (LTG) Pt will score at least 3/5 on LPM into all planes and 5/5 on MMT LEs B to shwo improved stability to dec pt feelign of instability. LTG Duration 02/16 LEFS Impairment 30/80 Short Term Goal (STG) Pt will score at least 45/80 on LEFS to show improved function. STG Duration 01/06 Assisted Goal (LTG) Pt will score at least 70/80 on LEFS to show improved function. LTG Duration 02/16 Assessment Summary Assessment Pt improved R lateral neck post discussion neck stretching, manual and instruction self STMs during manual. Pt experienced L knee pain during lateral lunges today, improved post manual mobs/STMs. Initiated SL sit> stand elevated surface, cues for knee alignment painfree just muscle tiring- added to HEP- did not want HO. Will progress balance challenges on LLE next, unable to perform post lateral lunge L knee pain . Physical Therapy Plan Frequency and Duration Frequency of Treatment 1-2x/week Duration of Treatment 3 months Plan of Care Start Date 11/16/21 Plan of Care End Date 02/16/22 Therapeutic Interventions Therapeutic Interventions Aquatic Therapy,Balance Training,Gait Training,Home Exercise Program,Joint Mobilizations,Manual Therapy, Neuromuscular Re-education, Orthotic/Prosthetic Management ,Patient/Caregiver Education, Self-Care/Home Management,Soft Tissue Mobilization,Taping, Therapeutic Activities, Therapeutic Exercises Modalities Cold Pack/Ice Massage,Electric Stimulation,Hot Packs, Infrared Therapy,Iontophoresis ,Ultrasound Next Visit Focus/Plan Next Note Type Treatment Note Next Visit Plan Recheck SL sit>stand 26 black table, ask do at home, progress DL balance on bosu and balance board, cont to work on lat lunges if tolerant . cont to work hip and foot mobility & soft tissue tightness to dec rot forces on knee.
--- NOTE | 2021-12-21 11:17 | PT.OTN ---
Current Diagnoses Other chronic pain (12/21/21) Pain in left knee (12/21/21) Difficulty in walking, not elsewhere classified (12/21/21) Abnormal posture (12/21/21) Weakness (12/21/21) Physical Therapy Treatment Note PT-OP-A Visit Information Start: 11/15/21 17:52 Freq: Status: Active Protocol: Document 12/21/21 09:57 [facility] (Rec: 12/21/21 11:16 [facility] [id number]) Out-Patient Physical Therapy Visit Information Visit Information Visit Type Treatment Note Visit Note 24 visits per year Visit Start Time 10:36 Visit Stop Time 11:15 Total Visit Minutes 39 Visit Number 8 Number of CUFFING MACHINE OPERATOR Visits 0 PT-OP-B Current Condition Start: 11/15/21 17:52 Freq: Status: Active Protocol: Document 11/16/21 13:50 [facility] (Rec: 11/16/21 14:52 [facility] [id number]) Current Condition History of Current Condition Onset Date 2014 Current Complaints L knee History of Current Condition Pt was skateboarding and came down from a high jump and came down hard on it as he was higher from the ground than he thoguht. he couldn't walk on it initially,but didn't get insurance so didn't get it checked out. This happened in 2014. It improved slightly between the initial incident and the hike incident. A couple years ago, his knee twisted and came under him med when stepping on a root and had inc pain. Pt reports knee gives out occ on him. He hasn' t been able to skateboard sicne the initial injury. Notes leg feels like a toothpick. If he bends it wrong, or lifts something too heavy, he can feel it. He is limited re: finding work d/t he is not comofrtable lifting heavy things d/t it hurts the knee. When he is stadnign it feels like it is going to buckle inwards sometimes. The thought of his injury makes him cringe still. He tires to run to play w/his kiddos but it is very unable and he is unable to really run. He doenst feel like knee would be stable if he has to catch himself on it. He has been trying to get on bike. he has been doing some mini squats and other exercises to try to keep his leg strong. Pt reports upper scap pain into head. Pt reports knee feels more fragile now. When he gets the sharp pain, it feels like it brings him back to the original trama. Treatment Goals Patient/Caregiver Goals be able to run w/o fear of it giving out, be able ride his skateboard PT-OP-C Subjective Start: 11/15/21 17:52 Freq: Status: Active Protocol: Document 12/21/21 09:57 [facility] (Rec: 12/21/21 11:16 [facility] [id number]) OP-PT Subjective Patient Comments Patient Comments Pt reports knee is doing pretty good in day to day life . lat squats bothered him last time PT-OP-D Balance Start: 11/15/21 17:52 Freq: Status: Active Protocol: Document 11/16/21 13:50 [facility] (Rec: 11/16/21 14:52 [facility] [id number]) Balance Tests Single Limb Standing Single Limb- Right >30 sec w/lat shear towards end Single Limb- Left 27 sec pain, lat shear of pelvis, knee bent, rotated R, IR of LLE PT-OP-F Manual Assessment Start: 11/15/21 17:52 Freq: Status: Active Protocol: Document 11/16/21 13:50 [facility] (Rec: 11/16/21 14:52 [facility] [id number]) Manual Assessments Soft Tissue Assessment Soft Tissue Mobility Assessment tender at med joint line Joint Mobility Assessment Joint Mobility Assessment L rearfoot varus, &forefoot varus; ER femur, IR tibia, L foot ER, arch L collapsed more than R PT-OP-G Mobility & Gait Start: 11/15/21 17:52 Freq: Status: Active Protocol: Document 11/16/21 13:50 [facility] (Rec: 11/16/21 14:52 [facility] [id number]) OP Gait Assessment Comments Gait Comments harder foot slap LLE, dec push off B, lat lean over LLE PT-OP-J Posture/Palpation/Skin Start: 11/15/21 17:52 Freq: Status: Active Protocol: Document 11/16/21 13:50 [facility] (Rec: 11/16/21 14:52 [facility] [id number]) Posture Evaluation Tariq Postural Classification System Lumbar Protective Mechanism Left AP 0 Lumbar Protective Mechanism Right AP 3 Lumbar Protective Mechanism Left PA 1 Lumbar Protective Mechanism Right PA 1 PT-OP-K Range of Motion Start: 11/15/21 17:52 Freq: Status: Active Protocol: Document 11/16/21 13:50 [facility] (Rec: 11/16/21 14:52 [facility] [id number]) Knee Goniometric Range of Motion Knee Right Flexion Active (degrees) 140 Extension Active (degrees) 0 Left Flexion Active (degrees) 134 Extension Active (degrees) 0 PT-OP-L Special Tests Start: 11/15/21 17:52 Freq: Status: Active Protocol: Document 11/16/21 13:50 [facility] (Rec: 11/16/21 14:52 [facility] [id number]) Special Tests Lumbar Spine Special Tests Slump Test Results neg Knee Special Tests Elsy Test Test Results posiitve w/ER of tibia into ext-pain & lock sensation Apley's Compression Test Results neg Posterior Draw Test Results neg Young Chondromalacia Test Results neg no pain w/ex Lucila's Test Results neg Paniagua's Compression Test Results neg Corie's Test Test Results positive L Straight Leg Raise Test Results 72 R; 64 L Gordon Comments L tight hip flexors, RF & TFL Thessaly Test 20 Degrees Test Results neg for pain-feels unstable Varus- 25 Degrees Test Results neg L Valgus- 25 Degrees Test Results positive for laxity in 0 deg & 25 sec & unstable position, Pt guards PT-OP-M Strength Start: 11/15/21 17:52 Freq: Status: Active Protocol: Document 11/16/21 13:50 [facility] (Rec: 11/16/21 14:52 [facility] [id number]) Hip Strength Hip Manual Muscle Testing Right Flexion (L2) 5 Normal Extension (S1) 5 Normal Abduction 5 Normal Adduction 5 Normal External Rotation 5 Normal Internal Rotation 5 Normal Left Flexion (L2) 4- Good- Extension (S1) 3+ Fair+ Abduction 4- Good- Adduction 3+ Fair+ External Rotation 4 Good Internal Rotation 4 Good Comments Dec trunk stability w/LE testing -dec core connection to LE Knee Strength Knee Manual Muscle Testing Right Flexion (S2) 5 Normal Extension (L3) 5 Normal Left Flexion (S2) 4+ Good+ Extension (L3) 4- Good- Ankle/Foot Strength Ankle and Foot Manual Muscle Testing Right Dorsiflexion (L4) 5 Normal Plantarflexion (S1) 5 Normal Comments 20 heel raises Left Dorsiflexion (L4) 5 Normal Plantarflexion (S1) 5 Normal Comments 20 heel raises-pain in knee & made knee feel weak PT-OP-Q Treatments Start: 11/15/21 17:52 Freq: Status: Active Protocol: Document 12/21/21 09:57 [facility] (Rec: 12/21/21 11:16 [facility] [id number]) Therapeutic Exercises Standing Exercises lat lunge Side bilateral Equipment Used bar prn Reps/Minutes 5 Comments cues for form, knee midline w/ toes SL Standing Exercise Name RDL Side left Reps/Minutes 2x5 squat Standing Exercise Name Single STS from raised table Side bilateral Equipment Used 26 table Reps/Minutes 10 Comments cued knee alignment stretch Standing Exercise Name calf on step Side bilateral Reps/Minutes 30 sec Manual Therapy Treatment Soft Tissue Mobilization calf Body Location L med border calf and HS Mobilization Type Rolling,Strumming Intensity/Depth Moderate Body Position Supine Joint Mobilizations hip Joint L Direction inf & IR FM hooklying tibfib Joint L Comments distal AP tib FM proximal fib inf glide Neuro Re-Education Treatment Balance Activities bosu Comments 1. DL balance blue side EC 2. march on blue side B 3. step up blue side x10 B 4. mini squats x10 PT-OP-T Assessment and Plan Start: 11/15/21 17:52 Freq: Status: Active Protocol: Document 12/21/21 09:57 [facility] (Rec: 12/21/21 11:16 [facility] [id number]) Physical Therapy Assessment Goals balacne Vacuum Furnace Operator Goal (LTG) Pt will be able to do SLS for 30 sec on L side w/o lat shear of pelvis or use of UEs or pain LTG Duration 02/16 stairs Shelter Goal (LTG) Pt will be able to descend stairs fwd reciprocally w/o rail w/o pain or feeling of instability. LTG Duration 02/16 activities Short Term Goal (STG) pt will be able to walk and stand w/o feeling of LLE giving out STG Duration 01/16 Vacuum Furnace Operator Goal (LTG) Pt will be able to run to play w/kids w/o pain, and fear of LE giving out and be able to skateboard. LTG Duration 02/16 strength Short Term Goal (STG) Pt will be consistant and indep w/performance of HEP STG Duration 01/16 Shelter Goal (LTG) Pt will score at least 3/5 on LPM into all planes and 5/5 on MMT LEs B to shwo improved stability to dec pt feelign of instability. LTG Duration 02/16 LEFS Impairment 30/80 Short Term Goal (STG) Pt will score at least 45/80 on LEFS to show improved function. STG Duration 01/06 Shelter Goal (LTG) Pt will score at least 70/80 on LEFS to show improved function. LTG Duration 02/16 Assessment Summary Assessment Pt did well with exercises today including new exercises on bosu. He had a lot of limit of inf hip glide which likely affected his abiltiy to do the lunges and squats Physical Therapy Plan Frequency and Duration Frequency of Treatment 1-2x/week Duration of Treatment 3 months Plan of Care Start Date 11/16/21 Plan of Care End Date 02/16/22 Next Visit Focus/Plan Next Note Type Treatment Note Next Visit Plan cont to work on hip and ankle mobility for improved knee function, cont to work on stabilizing knee
--- NOTE | 2021-12-26 16:45 | PT.OTN ---
Current Diagnoses Other chronic pain (01/02/22) Pain in left knee (01/02/22) Difficulty in walking, not elsewhere classified (01/02/22) Abnormal posture (01/02/22) Weakness (01/02/22) Physical Therapy Treatment Note PT-OP-A Visit Information Start: 11/15/21 17:52 Freq: Status: Active Protocol: Document 12/26/21 15:26 [facility] (Rec: 01/03/22 00:34 [facility] [id number]) Out-Patient Physical Therapy Visit Information Visit Information Visit Type Treatment Note Visit Note 24 visits per year Visit Start Time 15:20 Visit Stop Time 16:00 Total Visit Minutes 40 Visit Number 9 Number of GASTROENTEROLOGY TECHNICIAN Visits 1 PT-OP-B Current Condition Start: 11/15/21 17:52 Freq: Status: Active Protocol: Document 11/16/21 13:50 [facility] (Rec: 11/16/21 14:52 [facility] [id number]) Current Condition History of Current Condition Onset Date 2014 Current Complaints L knee History of Current Condition Pt was skateboarding and came down from a high jump and came down hard on it as he was higher from the ground than he thoguht. he couldn't walk on it initially,but didn't get insurance so didn't get it checked out. This happened in 2014. It improved slightly between the initial incident and the hike incident. A couple years ago, his knee twisted and came under him med when stepping on a root and had inc pain. Pt reports knee gives out occ on him. He hasn' t been able to skateboard sicne the initial injury. Notes leg feels like a toothpick. If he bends it wrong, or lifts something too heavy, he can feel it. He is limited re: finding work d/t he is not comofrtable lifting heavy things d/t it hurts the knee. When he is stadnign it feels like it is going to buckle inwards sometimes. The thought of his injury makes him cringe still. He tires to run to play w/his kiddos but it is very unable and he is unable to really run. He doenst feel like knee would be stable if he has to catch himself on it. He has been trying to get on bike. he has been doing some mini squats and other exercises to try to keep his leg strong. Pt reports upper scap pain into head. Pt reports knee feels more fragile now. When he gets the sharp pain, it feels like it brings him back to the original trama. Treatment Goals Patient/Caregiver Goals be able to run w/o fear of it giving out, be able ride his skateboard PT-OP-C Subjective Start: 11/15/21 17:52 Freq: Status: Active Protocol: Document 12/26/21 15:26 [facility] (Rec: 01/03/22 00:37 [facility] [id number]) OP-PT Subjective Patient Comments Patient Comments Pt reports he just injured his L knee an hour ago in the shower when he planted his left leg and turned to his right. Pain is present along inside of L knee. PT-OP-D Balance Start: 11/15/21 17:52 Freq: Status: Active Protocol: Document 11/16/21 13:50 [facility] (Rec: 11/16/21 14:52 [facility] [id number]) Balance Tests Single Limb Standing Single Limb- Right >30 sec w/lat shear towards end Single Limb- Left 27 sec pain, lat shear of pelvis, knee bent, rotated R, IR of LLE PT-OP-F Manual Assessment Start: 11/15/21 17:52 Freq: Status: Active Protocol: Document 11/16/21 13:50 [facility] (Rec: 11/16/21 14:52 [facility] [id number]) Manual Assessments Soft Tissue Assessment Soft Tissue Mobility Assessment tender at med joint line Joint Mobility Assessment Joint Mobility Assessment L rearfoot varus, &forefoot varus; ER femur, IR tibia, L foot ER, arch L collapsed more than R PT-OP-G Mobility & Gait Start: 11/15/21 17:52 Freq: Status: Active Protocol: Document 11/16/21 13:50 [facility] (Rec: 11/16/21 14:52 [facility] [id number]) OP Gait Assessment Comments Gait Comments harder foot slap LLE, dec push off B, lat lean over LLE PT-OP-J Posture/Palpation/Skin Start: 11/15/21 17:52 Freq: Status: Active Protocol: Document 11/16/21 13:50 [facility] (Rec: 11/16/21 14:52 [facility] [id number]) Posture Evaluation Tariq Postural Classification System Lumbar Protective Mechanism Left AP 0 Lumbar Protective Mechanism Right AP 3 Lumbar Protective Mechanism Left PA 1 Lumbar Protective Mechanism Right PA 1 PT-OP-K Range of Motion Start: 11/15/21 17:52 Freq: Status: Active Protocol: Document 11/16/21 13:50 [facility] (Rec: 11/16/21 14:52 [facility] [id number]) Knee Goniometric Range of Motion Knee Right Flexion Active (degrees) 140 Extension Active (degrees) 0 Left Flexion Active (degrees) 134 Extension Active (degrees) 0 PT-OP-L Special Tests Start: 11/15/21 17:52 Freq: Status: Active Protocol: Document 11/16/21 13:50 [facility] (Rec: 11/16/21 14:52 [facility] [id number]) Special Tests Lumbar Spine Special Tests Slump Test Results neg Knee Special Tests Elsy Test Test Results posiitve w/ER of tibia into ext-pain & lock sensation Apley's Compression Test Results neg Posterior Draw Test Results neg Young Chondromalacia Test Results neg no pain w/ex Lucila's Test Results neg Paniagua's Compression Test Results neg Corie's Test Test Results positive L Straight Leg Raise Test Results 72 R; 64 L Gordon Comments L tight hip flexors, RF & TFL Thessaly Test 20 Degrees Test Results neg for pain-feels unstable Varus- 25 Degrees Test Results neg L Valgus- 25 Degrees Test Results positive for laxity in 0 deg & 25 sec & unstable position, Pt guards PT-OP-M Strength Start: 11/15/21 17:52 Freq: Status: Active Protocol: Document 11/16/21 13:50 [facility] (Rec: 11/16/21 14:52 [facility] [id number]) Hip Strength Hip Manual Muscle Testing Right Flexion (L2) 5 Normal Extension (S1) 5 Normal Abduction 5 Normal Adduction 5 Normal External Rotation 5 Normal Internal Rotation 5 Normal Left Flexion (L2) 4- Good- Extension (S1) 3+ Fair+ Abduction 4- Good- Adduction 3+ Fair+ External Rotation 4 Good Internal Rotation 4 Good Comments Dec trunk stability w/LE testing -dec core connection to LE Knee Strength Knee Manual Muscle Testing Right Flexion (S2) 5 Normal Extension (L3) 5 Normal Left Flexion (S2) 4+ Good+ Extension (L3) 4- Good- Ankle/Foot Strength Ankle and Foot Manual Muscle Testing Right Dorsiflexion (L4) 5 Normal Plantarflexion (S1) 5 Normal Comments 20 heel raises Left Dorsiflexion (L4) 5 Normal Plantarflexion (S1) 5 Normal Comments 20 heel raises-pain in knee & made knee feel weak PT-OP-Q Treatments Start: 11/15/21 17:52 Freq: Status: Active Protocol: Document 12/26/21 15:26 [facility] (Rec: 12/26/21 16:02 [facility] [id number]) Therapeutic Exercises Prone Exercises TKE Prone Exercise Name TKE to hip ext Side left Reps/Minutes x10, 2 sec hold Comments cued quad fac knee straight pre lift- ankle not as PF more neutral Standing Exercises TKE Standing Exercise Name 3-way TKE Side left Resistance TB #2 Reps/Minutes x10 reps ea Comments Pt able to tolerate w/ cues for gentle movement, knees aligned behind toes Manual Therapy Treatment Soft Tissue Mobilization calf Body Location L med border calf and HS Mobilization Type Instrument Assisted,Rolling, Strumming Intensity/Depth Moderate Body Position Hooklying Comments [place] quad Body Location L VMO borders Mobilization Type Rolling,Other Intensity/Depth Moderate Body Position Hooklying Comments slight swelling noted - light edema massage Neuro Re-Education Treatment Balance Activities bosu Details modified to blue foam on 4 step d/t L knee injury Surface blue foam Comments 1. DL balance blue side EC - pt able to perform today 2. march on blue side B 3. step up blue side x10 B 4. mini squats x10 - cues for keeping knees aligned behind toes PT-OP-R Modalities Start: 11/15/21 17:52 Freq: Status: Active Protocol: Document 12/26/21 15:26 [facility] (Rec: 12/26/21 16:02 [facility] [id number]) Hot Pack/Cold Pack Treatment Cold Pack Location L knee Patient Position Hooklying Treatment Duration (minutes) 5 Patient Tolerance Fair PT-OP-T Assessment and Plan Start: 11/15/21 17:52 Freq: Status: Active Protocol: Document 12/26/21 15:26 [facility] (Rec: 01/03/22 00:34 [facility] [id number]) Physical Therapy Assessment Goals balacne Fci Goal (LTG) Pt will be able to do SLS for 30 sec on L side w/o lat shear of pelvis or use of UEs or pain LTG Duration 02/16 stairs Animal Care Technician Goal (LTG) Pt will be able to descend stairs fwd reciprocally w/o rail w/o pain or feeling of instability. LTG Duration 02/16 activities Short Term Goal (STG) pt will be able to walk and stand w/o feeling of LLE giving out STG Duration 01/16 Animal Care Technician Goal (LTG) Pt will be able to run to play w/kids w/o pain, and fear of LE giving out and be able to skateboard. LTG Duration 02/16 strength Short Term Goal (STG) Pt will be consistant and indep w/performance of HEP STG Duration 01/16 Animal Care Technician Goal (LTG) Pt will score at least 3/5 on LPM into all planes and 5/5 on MMT LEs B to shwo improved stability to dec pt feelign of instability. LTG Duration 02/16 LEFS Impairment 30/80 Short Term Goal (STG) Pt will score at least 45/80 on LEFS to show improved function. STG Duration 01/06 Animal Care Technician Goal (LTG) Pt will score at least 70/80 on LEFS to show improved function. LTG Duration 02/16 Assessment Summary Assessment Pt arrives one hour after re- injury to L knee when pt planted LLE in shower and pivoted towards right - pain present along L knee medial joint line and consistent w/ previous findings of possible medial meniscal injury. Treatment modified accordingly from blue-sided BOSU to 4 step w/ blue foam- pt able to tolerate treatment session including addition of 3-way TKE w/ cues for maintaining knee alignment behind toes. Physical Therapy Plan Frequency and Duration Frequency of Treatment 1-2x/week Plan of Care Start Date 11/16/21 Plan of Care End Date 02/16/22 Therapeutic Interventions Therapeutic Interventions Aquatic Therapy,Balance Training,Gait Training,Home Exercise Program,Joint Mobilizations,Manual Therapy, Neuromuscular Re-education, Orthotic/Prosthetic Management ,Patient/Caregiver Education, Self-Care/Home Management,Soft Tissue Mobilization,Taping, Therapeutic Activities, Therapeutic Exercises Modalities Cold Pack/Ice Massage,Electric Stimulation,Hot Packs, Infrared Therapy,Iontophoresis ,Ultrasound Next Visit Focus/Plan Next Note Type Treatment Note Next Visit Plan cont to work on hip and ankle mobility for improved knee function, cont to work on stabilizing knee
--- NOTE | 2022-01-02 09:02 | PT.OTN ---
Current Diagnoses Other chronic pain (01/02/22) Pain in left knee (01/02/22) Difficulty in walking, not elsewhere classified (01/02/22) Abnormal posture (01/02/22) Weakness (01/02/22) Physical Therapy Treatment Note PT-OP-A Visit Information Start: 11/15/21 17:52 Freq: Status: Active Protocol: Document 01/02/22 08:16 LRN (Rec: 01/02/22 09:01 LRN [id number]) Out-Patient Physical Therapy Visit Information Visit Information Visit Type Treatment Note Visit Start Time 08:16 Visit Stop Time 08:57 Total Visit Minutes 41 Visit Number 10 PT-OP-B Current Condition Start: 11/15/21 17:52 Freq: Status: Active Protocol: Document 11/16/21 13:50 [facility] (Rec: 11/16/21 14:52 [facility] [id number]) Current Condition History of Current Condition Onset Date 2014 Current Complaints L knee History of Current Condition Pt was skateboarding and came down from a high jump and came down hard on it as he was higher from the ground than he thoguht. he couldn't walk on it initially,but didn't get insurance so didn't get it checked out. This happened in 2014. It improved slightly between the initial incident and the hike incident. A couple years ago, his knee twisted and came under him med when stepping on a root and had inc pain. Pt reports knee gives out occ on him. He hasn' t been able to skateboard sicne the initial injury. Notes leg feels like a toothpick. If he bends it wrong, or lifts something too heavy, he can feel it. He is limited re: finding work d/t he is not comofrtable lifting heavy things d/t it hurts the knee. When he is stadnign it feels like it is going to buckle inwards sometimes. The thought of his injury makes him cringe still. He tires to run to play w/his kiddos but it is very unable and he is unable to really run. He doenst feel like knee would be stable if he has to catch himself on it. He has been trying to get on bike. he has been doing some mini squats and other exercises to try to keep his leg strong. Pt reports upper scap pain into head. Pt reports knee feels more fragile now. When he gets the sharp pain, it feels like it brings him back to the original trama. Treatment Goals Patient/Caregiver Goals be able to run w/o fear of it giving out, be able ride his skateboard PT-OP-C Subjective Start: 11/15/21 17:52 Freq: Status: Active Protocol: Document 01/02/22 08:16 LRN (Rec: 01/02/22 09:01 N [id number]) OP-PT Subjective Patient Comments Patient Comments Dr. arcos is 01/19/22, to determine need for MRI. States he is sore all over from evening work at [employer]. Last week was the last time had pain in the knee when twisting in shower (as reported last time). PT-OP-D Balance Start: 11/15/21 17:52 Freq: Status: Active Protocol: Document 11/16/21 13:50 [facility] (Rec: 11/16/21 14:52 [facility] [id number]) Balance Tests Single Limb Standing Single Limb- Right >30 sec w/lat shear towards end Single Limb- Left 27 sec pain, lat shear of pelvis, knee bent, rotated R, IR of LLE PT-OP-F Manual Assessment Start: 11/15/21 17:52 Freq: Status: Active Protocol: Document 11/16/21 13:50 [facility] (Rec: 11/16/21 14:52 [facility] [id number]) Manual Assessments Soft Tissue Assessment Soft Tissue Mobility Assessment tender at med joint line Joint Mobility Assessment Joint Mobility Assessment L rearfoot varus, &forefoot varus; ER femur, IR tibia, L foot ER, arch L collapsed more than R PT-OP-G Mobility & Gait Start: 11/15/21 17:52 Freq: Status: Active Protocol: Document 11/16/21 13:50 [facility] (Rec: 11/16/21 14:52 [facility] [id number]) OP Gait Assessment Comments Gait Comments harder foot slap LLE, dec push off B, lat lean over LLE PT-OP-J Posture/Palpation/Skin Start: 11/15/21 17:52 Freq: Status: Active Protocol: Document 11/16/21 13:50 [facility] (Rec: 11/16/21 14:52 [facility] [id number]) Posture Evaluation [facility] Postural Classification System Lumbar Protective Mechanism Left AP 0 Lumbar Protective Mechanism Right AP 3 Lumbar Protective Mechanism Left PA 1 Lumbar Protective Mechanism Right PA 1 PT-OP-K Range of Motion Start: 11/15/21 17:52 Freq: Status: Active Protocol: Document 11/16/21 13:50 [facility] (Rec: 11/16/21 14:52 [facility] [id number]) Knee Goniometric Range of Motion Knee Right Flexion Active (degrees) 140 Extension Active (degrees) 0 Left Flexion Active (degrees) 134 Extension Active (degrees) 0 PT-OP-L Special Tests Start: 11/15/21 17:52 Freq: Status: Active Protocol: Document 11/16/21 13:50 [facility] (Rec: 11/16/21 14:52 [facility] [id number]) Special Tests Lumbar Spine Special Tests Slump Test Results neg Knee Special Tests Elsy Test Test Results posiitve w/ER of tibia into ext-pain & lock sensation Apley's Compression Test Results neg Posterior Draw Test Results neg Young Chondromalacia Test Results neg no pain w/ex Lucila's Test Results neg Paniagua's Compression Test Results neg Corie's Test Test Results positive L Straight Leg Raise Test Results 72 R; 64 L Gordon Comments L tight hip flexors, RF & TFL Thessaly Test 20 Degrees Test Results neg for pain-feels unstable Varus- 25 Degrees Test Results neg L Valgus- 25 Degrees Test Results positive for laxity in 0 deg & 25 sec & unstable position, Pt guards PT-OP-M Strength Start: 11/15/21 17:52 Freq: Status: Active Protocol: Document 11/16/21 13:50 [facility] (Rec: 11/16/21 14:52 [facility] [id number]) Hip Strength Hip Manual Muscle Testing Right Flexion (L2) 5 Normal Extension (S1) 5 Normal Abduction 5 Normal Adduction 5 Normal External Rotation 5 Normal Internal Rotation 5 Normal Left Flexion (L2) 4- Good- Extension (S1) 3+ Fair+ Abduction 4- Good- Adduction 3+ Fair+ External Rotation 4 Good Internal Rotation 4 Good Comments Dec trunk stability w/LE testing -dec core connection to LE Knee Strength Knee Manual Muscle Testing Right Flexion (S2) 5 Normal Extension (L3) 5 Normal Left Flexion (S2) 4+ Good+ Extension (L3) 4- Good- Ankle/Foot Strength Ankle and Foot Manual Muscle Testing Right Dorsiflexion (L4) 5 Normal Plantarflexion (S1) 5 Normal Comments 20 heel raises Left Dorsiflexion (L4) 5 Normal Plantarflexion (S1) 5 Normal Comments 20 heel raises-pain in knee & made knee feel weak PT-OP-Q Treatments Start: 11/15/21 17:52 Freq: Status: Active Protocol: Document 01/02/22 08:16 LRN (Rec: 01/02/22 09:01 LRN [id number]) Cardio Equipment Bicycle (Upright) Duration (Minutes) 10 Resistance Lev 2 at 70 rpm or greater Seat Position 7 Other No pain with cycling. Cuing for core stability. 5.14 miles Therapeutic Exercises Supine Exercises SLR Supine Exercise Name SLR foot at 10, 12 and 1 O' Clock Side left Reps/Minutes 3x each Comments Pt had difficulty due to weakness. stretch Supine Exercise Name 1. HS 2. ITB Side bilateral Reps/Minutes 30 sec ea Sitting Exercises Knee flex Sitting Exercise Name Knee flex 30-max flex deg's Side left Equipment Used lev 1 TB Reps/Minutes 30x Knee ext Sitting Exercise Name Knee ext 90-30 deg's ext Side left Equipment Used 3# at ankle Reps/Minutes 30x Standing Exercises Hamstring stretch Standing Exercise Name Hamstring stretch Side left Equipment Used 2nd step of stairs Reps/Minutes 60SH x 1 Comments Cuing to not overstretch. Quad stretch Standing Exercise Name Quad stretch Side left Reps/Minutes 4' Comments Extra time to assist to getting just quad stretch, much v. & phys assist Ankle PF Standing Exercise Name Ankle PF in neutral, IV, EV Reps/Minutes 10x each Comments Extra time for determining IV/ EV angle without pain Hip Flex/Ext Standing Exercise Name Hip Flex/Ext Side left Hip AB/AD Standing Exercise Name Hip AB/AD Side left stretch Standing Exercise Name Gastroc Side bilateral Equipment Used Feet on step and on ground Reps/Minutes 60 SH x 1 PT-OP-R Modalities Start: 11/15/21 17:52 Freq: Status: Active Protocol: Document 12/26/21 15:26 NB (Rec: 12/26/21 16:02 NB [id number]) Hot Pack/Cold Pack Treatment Cold Pack Location L knee Patient Position Hooklying Treatment Duration (minutes) 5 Patient Tolerance Fair PT-OP-T Assessment and Plan Start: 11/15/21 17:52 Freq: Status: Active Protocol: Document 01/02/22 08:16 LRN (Rec: 01/02/22 09:01 LRN [id number]) Physical Therapy Assessment Goals balacne Commercial Loan Coordinator Goal (LTG) Pt will be able to do SLS for 30 sec on L side w/o lat shear of pelvis or use of UEs or pain LTG Duration 02/16 stairs Long-Term Goal (LTG) Pt will be able to descend stairs fwd reciprocally w/o rail w/o pain or feeling of instability. LTG Duration 02/16 activities Short Term Goal (STG) pt will be able to walk and stand w/o feeling of LLE giving out STG Duration 01/16 Commercial Loan Coordinator Goal (LTG) Pt will be able to run to play w/kids w/o pain, and fear of LE giving out and be able to skateboard. LTG Duration 02/16 strength Short Term Goal (STG) Pt will be consistant and indep w/performance of HEP STG Duration 01/16 Commercial Loan Coordinator Goal (LTG) Pt will score at least 3/5 on LPM into all planes and 5/5 on MMT LEs B to shwo improved stability to dec pt feelign of instability. LTG Duration 02/16 LEFS Impairment 30/80 Short Term Goal (STG) Pt will score at least 45/80 on LEFS to show improved function. STG Duration 01/06 Long-Term Goal (LTG) Pt will score at least 70/80 on LEFS to show improved function. LTG Duration 02/16 Assessment Summary Assessment Pt is quite weak in his LLE and probably RLE. After therapy he limped for ~3 steps , then was able to ambulate with a somewhat normal gait, with a [place] type gait towards the left (hip AB weakness?). Pt LLE has very tight Hamstrings and flexible Quads; therefore ms imbalance is present. He appears to have good ankle DF mobility; therefore recommend focus on strengthening. Physical Therapy Plan Frequency and Duration Frequency of Treatment 1-2x/week Plan of Care Start Date 11/16/21 Next Visit Focus/Plan Next Note Type Treatment Note Next Visit Plan cont to work on hip and ankle strengthening and hamstring mobility for improved knee function, cont to work on stabilizing knee.
--- NOTE | 2022-01-10 14:36 | PT.OTN ---
Current Diagnoses Other chronic pain (01/10/22) Pain in left knee (01/10/22) Difficulty in walking, not elsewhere classified (01/10/22) Abnormal posture (01/10/22) Weakness (01/10/22) Physical Therapy Treatment Note PT-OP-A Visit Information Start: 11/15/21 17:52 Freq: Status: Active Protocol: Document 01/10/22 13:52 [facility] (Rec: 01/10/22 14:36 [facility] [id number]) Out-Patient Physical Therapy Visit Information Visit Information Visit Type Treatment Note Visit Start Time 13:55 Visit Stop Time 14:33 Total Visit Minutes 38 Visit Number 11 Number of UNIT TRUST MANAGER Visits 0 PT-OP-B Current Condition Start: 11/15/21 17:52 Freq: Status: Active Protocol: Document 11/16/21 13:50 [facility] (Rec: 11/16/21 14:52 [facility] [id number]) Current Condition History of Current Condition Onset Date 2014 Current Complaints L knee History of Current Condition Pt was skateboarding and came down from a high jump and came down hard on it as he was higher from the ground than he thoguht. he couldn't walk on it initially,but didn't get insurance so didn't get it checked out. This happened in 2014. It improved slightly between the initial incident and the hike incident. A couple years ago, his knee twisted and came under him med when stepping on a root and had inc pain. Pt reports knee gives out occ on him. He hasn' t been able to skateboard sicne the initial injury. Notes leg feels like a toothpick. If he bends it wrong, or lifts something too heavy, he can feel it. He is limited re: finding work d/t he is not comofrtable lifting heavy things d/t it hurts the knee. When he is stadnign it feels like it is going to buckle inwards sometimes. The thought of his injury makes him cringe still. He tires to run to play w/his kiddos but it is very unable and he is unable to really run. He doenst feel like knee would be stable if he has to catch himself on it. He has been trying to get on bike. he has been doing some mini squats and other exercises to try to keep his leg strong. Pt reports upper scap pain into head. Pt reports knee feels more fragile now. When he gets the sharp pain, it feels like it brings him back to the original trama. Treatment Goals Patient/Caregiver Goals be able to run w/o fear of it giving out, be able ride his skateboard PT-OP-C Subjective Start: 11/15/21 17:52 Freq: Status: Active Protocol: Document 01/10/22 13:52 [facility] (Rec: 01/10/22 14:36 [facility] [id number]) OP-PT Subjective Patient Comments Patient Comments Pt reports he hurt his neck 4 days ago so he hasn't done much exercise PT-OP-D Balance Start: 11/15/21 17:52 Freq: Status: Active Protocol: Document 11/16/21 13:50 [facility] (Rec: 11/16/21 14:52 [facility] [id number]) Balance Tests Single Limb Standing Single Limb- Right >30 sec w/lat shear towards end Single Limb- Left 27 sec pain, lat shear of pelvis, knee bent, rotated R, IR of LLE PT-OP-F Manual Assessment Start: 11/15/21 17:52 Freq: Status: Active Protocol: Document 11/16/21 13:50 [facility] (Rec: 11/16/21 14:52 [id number] Manual Assessments Soft Tissue Assessment Soft Tissue Mobility Assessment tender at med joint line Joint Mobility Assessment Joint Mobility Assessment L rearfoot varus, &forefoot varus; ER femur, IR tibia, L foot ER, arch L collapsed more than R PT-OP-G Mobility & Gait Start: 11/15/21 17:52 Freq: Status: Active Protocol: Document 11/16/21 13:50 [facility] (Rec: 11/16/21 14:52 [facility] [id number]) OP Gait Assessment Comments Gait Comments harder foot slap LLE, dec push off B, lat lean over LLE PT-OP-J Posture/Palpation/Skin Start: 11/15/21 17:52 Freq: Status: Active Protocol: Document 11/16/21 13:50 [facility] (Rec: 11/16/21 14:52 [facility] [id number]) Posture Evaluation [facility] Postural Classification System Lumbar Protective Mechanism Left AP 0 Lumbar Protective Mechanism Right AP 3 Lumbar Protective Mechanism Left PA 1 Lumbar Protective Mechanism Right PA 1 PT-OP-K Range of Motion Start: 11/15/21 17:52 Freq: Status: Active Protocol: Document 11/16/21 13:50 [facility] (Rec: 11/16/21 14:52 [facility] [id number]) Knee Goniometric Range of Motion Knee Right Flexion Active (degrees) 140 Extension Active (degrees) 0 Left Flexion Active (degrees) 134 Extension Active (degrees) 0 PT-OP-L Special Tests Start: 11/15/21 17:52 Freq: Status: Active Protocol: Document 11/16/21 13:50 [facility] (Rec: 11/16/21 14:52 [facility] [id number]) Special Tests Lumbar Spine Special Tests Slump Test Results neg Knee Special Tests Elsy Test Test Results posiitve w/ER of tibia into ext-pain & lock sensation Apley's Compression Test Results neg Posterior Draw Test Results neg Young Chondromalacia Test Results neg no pain w/ex Lucila's Test Results neg Paniagua's Compression Test Results neg Corie's Test Test Results positive L Straight Leg Raise Test Results 72 R; 64 L Gordon Comments L tight hip flexors, RF & TFL Thessaly Test 20 Degrees Test Results neg for pain-feels unstable Varus- 25 Degrees Test Results neg L Valgus- 25 Degrees Test Results positive for laxity in 0 deg & 25 sec & unstable position, Pt guards PT-OP-M Strength Start: 11/15/21 17:52 Freq: Status: Active Protocol: Document 11/16/21 13:50 [facility] (Rec: 11/16/21 14:52 [facility] [id number]) Hip Strength Hip Manual Muscle Testing Right Flexion (L2) 5 Normal Extension (S1) 5 Normal Abduction 5 Normal Adduction 5 Normal External Rotation 5 Normal Internal Rotation 5 Normal Left Flexion (L2) 4- Good- Extension (S1) 3+ Fair+ Abduction 4- Good- Adduction 3+ Fair+ External Rotation 4 Good Internal Rotation 4 Good Comments Dec trunk stability w/LE testing -dec core connection to LE Knee Strength Knee Manual Muscle Testing Right Flexion (S2) 5 Normal Extension (L3) 5 Normal Left Flexion (S2) 4+ Good+ Extension (L3) 4- Good- Ankle/Foot Strength Ankle and Foot Manual Muscle Testing Right Dorsiflexion (L4) 5 Normal Plantarflexion (S1) 5 Normal Comments 20 heel raises Left Dorsiflexion (L4) 5 Normal Plantarflexion (S1) 5 Normal Comments 20 heel raises-pain in knee & made knee feel weak PT-OP-Q Treatments Start: 11/15/21 17:52 Freq: Status: Active Protocol: Document 01/10/22 13:52 [facility] (Rec: 01/10/22 14:36 [facility] [id number]) Manual Therapy Treatment Soft Tissue Mobilization ITB Body Location L Mobilization Type Rolling,Strumming Intensity/Depth Moderate Body Position Supine calf Body Location L med border calf and HS Mobilization Type Instrument Assisted,Rolling, Strumming Intensity/Depth Moderate Body Position Hooklying Comments The[place]and adductors Body Location L Mobilization Type Rolling,Strumming Intensity/Depth Moderate Body Position Supine Neuro Re-Education Treatment Balance Activities SLS Comments 1. w/rotation B 2. Y reach x3 B 3. SLS EC bosu Comments 1. DL balance blue side EC - pt able to perform today 2. march on blue side B x15 3. step up blue side x10 B 4. mini squats x10 ea- on blue side and black side 5.SLS blue side B 5. black side balance EC Self-Care/Home Management Treatment Education Other Education discussion re: plan to cont PT until plan is made by potential specialist as PT is helping and improving him. PT-OP-R Modalities Start: 11/15/21 17:52 Freq: Status: Active Protocol: Document 12/26/21 15:26 [facility] (Rec: 12/26/21 16:02 [facility] [id number]) Hot Pack/Cold Pack Treatment Cold Pack Location L knee Patient Position Hooklying Treatment Duration (minutes) 5 Patient Tolerance Fair PT-OP-T Assessment and Plan Start: 11/15/21 17:52 Freq: Status: Active Protocol: Document 01/10/22 13:52 [facility] (Rec: 01/10/22 14:36 [facility] [id number]) Physical Therapy Assessment Goals balacne Die Cutter Diamond Goal (LTG) Pt will be able to do SLS for 30 sec on L side w/o lat shear of pelvis or use of UEs or pain LTG Duration 02/16 stairs Halfway Goal (LTG) Pt will be able to descend stairs fwd reciprocally w/o rail w/o pain or feeling of instability. LTG Duration 11/11 activities Short Term Goal (STG) pt will be able to walk and stand w/o feeling of LLE giving out STG Duration 01/16 Halfway Goal (LTG) Pt will be able to run to play w/kids w/o pain, and fear of LE giving out and be able to skateboard. LTG Duration 02/16 strength Short Term Goal (STG) Pt will be consistant and indep w/performance of HEP STG Duration 01/16 Die Cutter Diamond Goal (LTG) Pt will score at least 3/5 on LPM into all planes and 5/5 on MMT LEs B to shwo improved stability to dec pt feelign of instability. LTG Duration 02/16 LEFS Impairment 30/80 Short Term Goal (STG) Pt will score at least 45/80 on LEFS to show improved function. STG Duration 01/06 Die Cutter Diamond Goal (LTG) Pt will score at least 70/80 on LEFS to show improved function. LTG Duration 02/16 Assessment Summary Assessment Pt did well iwth balance/ strength tasks today without c /o inc pain. Still soft tissue tightness especailly in add Physical Therapy Plan Frequency and Duration Frequency of Treatment 1-2x/week Plan of Care Start Date 11/16/21 Plan of Care End Date 02/16/22 Next Visit Focus/Plan Next Note Type Treatment Note Next Visit Plan cont to work on hip and ankle strengthening and hamstring mobility for improved knee function, cont to work on stabilizing knee.
--- NOTE | 2022-01-16 14:32 | PT.OTN ---
Current Diagnoses Other chronic pain (01/16/22) Pain in left knee (01/16/22) Difficulty in walking, not elsewhere classified (01/16/22) Abnormal posture (01/16/22) Weakness (01/16/22) Physical Therapy Treatment Note PT-OP-A Visit Information Start: 11/15/21 17:52 Freq: Status: Active Protocol: Document 01/16/22 13:45 [facility] (Rec: 01/16/22 14:32 [facility] [id number]) Out-Patient Physical Therapy Visit Information Visit Information Visit Type Treatment Note Visit Start Time 13:45 Visit Stop Time 14:27 Total Visit Minutes 42 Visit Number 12 Number of MAIL MANAGER Visits 0 PT-OP-B Current Condition Start: 11/15/21 17:52 Freq: Status: Active Protocol: Document 11/16/21 13:50 [facility] (Rec: 11/16/21 14:52 [facility] [id number]) Current Condition History of Current Condition Onset Date 2014 Current Complaints L knee History of Current Condition Pt was skateboarding and came down from a high jump and came down hard on it as he was higher from the ground than he thoguht. he couldn't walk on it initially,but didn't get insurance so didn't get it checked out. This happened in 2014. It improved slightly between the initial incident and the hike incident. A couple years ago, his knee twisted and came under him med when stepping on a root and had inc pain. Pt reports knee gives out occ on him. He hasn' t been able to skateboard sicne the initial injury. Notes leg feels like a toothpick. If he bends it wrong, or lifts something too heavy, he can feel it. He is limited re: finding work d/t he is not comofrtable lifting heavy things d/t it hurts the knee. When he is stadnign it feels like it is going to buckle inwards sometimes. The thought of his injury makes him cringe still. He tires to run to play w/his kiddos but it is very unable and he is unable to really run. He doenst feel like knee would be stable if he has to catch himself on it. He has been trying to get on bike. he has been doing some mini squats and other exercises to try to keep his leg strong. Pt reports upper scap pain into head. Pt reports knee feels more fragile now. When he gets the sharp pain, it feels like it brings him back to the original trama. Treatment Goals Patient/Caregiver Goals be able to run w/o fear of it giving out, be able ride his skateboard PT-OP-C Subjective Start: 11/15/21 17:52 Freq: Status: Active Protocol: Document 01/16/22 13:45 [facility] (Rec: 01/16/22 14:32 [facility] [id number]) OP-PT Subjective Patient Comments Patient Comments Pt reports not doing exercises much d/t it being rough few weeks. Neck still a little sore from last week. Pt notes knee is a little sore fromw alking earlier. PT-OP-D Balance Start: 11/15/21 17:52 Freq: Status: Active Protocol: Document 11/16/21 13:50 [facility] (Rec: 11/16/21 14:52 [facility] [id number]) Balance Tests Single Limb Standing Single Limb- Right >30 sec w/lat shear towards end Single Limb- Left 27 sec pain, lat shear of pelvis, knee bent, rotated R, IR of LLE PT-OP-F Manual Assessment Start: 11/15/21 17:52 Freq: Status: Active Protocol: Document 11/16/21 13:50 [facility] (Rec: 11/16/21 14:52 [id number] Manual Assessments Soft Tissue Assessment Soft Tissue Mobility Assessment tender at med joint line Joint Mobility Assessment Joint Mobility Assessment L rearfoot varus, &forefoot varus; ER femur, IR tibia, L foot ER, arch L collapsed more than R PT-OP-G Mobility & Gait Start: 11/15/21 17:52 Freq: Status: Active Protocol: Document 11/16/21 13:50 [facility] (Rec: 11/16/21 14:52 [facility] [id number]) OP Gait Assessment Comments Gait Comments harder foot slap LLE, dec push off B, lat lean over LLE PT-OP-J Posture/Palpation/Skin Start: 11/15/21 17:52 Freq: Status: Active Protocol: Document 11/16/21 13:50 [facility] (Rec: 11/16/21 14:52 [facility] [id number]) Posture Evaluation [facility] Postural Classification System Lumbar Protective Mechanism Left AP 0 Lumbar Protective Mechanism Right AP 3 Lumbar Protective Mechanism Left PA 1 Lumbar Protective Mechanism Right PA 1 PT-OP-K Range of Motion Start: 11/15/21 17:52 Freq: Status: Active Protocol: Document 11/16/21 13:50 [facility] (Rec: 11/16/21 14:52 [facility] [id number]) Knee Goniometric Range of Motion Knee Right Flexion Active (degrees) 140 Extension Active (degrees) 0 Left Flexion Active (degrees) 134 Extension Active (degrees) 0 PT-OP-L Special Tests Start: 11/15/21 17:52 Freq: Status: Active Protocol: Document 11/16/21 13:50 [facility] (Rec: 11/16/21 14:52 [facility] [id number]) Special Tests Lumbar Spine Special Tests Slump Test Results neg Knee Special Tests Elsy Test Test Results posiitve w/ER of tibia into ext-pain & lock sensation Apley's Compression Test Results neg Posterior Draw Test Results neg Young Chondromalacia Test Results neg no pain w/ex Lucila's Test Results neg Paniagua's Compression Test Results neg Corie's Test Test Results positive L Straight Leg Raise Test Results 72 R; 64 L Gordon Comments L tight hip flexors, RF & TFL Thessaly Test 20 Degrees Test Results neg for pain-feels unstable Varus- 25 Degrees Test Results neg L Valgus- 25 Degrees Test Results positive for laxity in 0 deg & 25 sec & unstable position, Pt guards PT-OP-M Strength Start: 11/15/21 17:52 Freq: Status: Active Protocol: Document 11/16/21 13:50 [facility] (Rec: 11/16/21 14:52 [facility] [id number]) Hip Strength Hip Manual Muscle Testing Right Flexion (L2) 5 Normal Extension (S1) 5 Normal Abduction 5 Normal Adduction 5 Normal External Rotation 5 Normal Internal Rotation 5 Normal Left Flexion (L2) 4- Good- Extension (S1) 3+ Fair+ Abduction 4- Good- Adduction 3+ Fair+ External Rotation 4 Good Internal Rotation 4 Good Comments Dec trunk stability w/LE testing -dec core connection to LE Knee Strength Knee Manual Muscle Testing Right Flexion (S2) 5 Normal Extension (L3) 5 Normal Left Flexion (S2) 4+ Good+ Extension (L3) 4- Good- Ankle/Foot Strength Ankle and Foot Manual Muscle Testing Right Dorsiflexion (L4) 5 Normal Plantarflexion (S1) 5 Normal Comments 20 heel raises Left Dorsiflexion (L4) 5 Normal Plantarflexion (S1) 5 Normal Comments 20 heel raises-pain in knee & made knee feel weak PT-OP-Q Treatments Start: 11/15/21 17:52 Freq: Status: Active Protocol: Document 01/16/22 13:45 [facility] (Rec: 01/16/22 14:32 [facility] [id number]) Therapeutic Exercises Supine Exercises SAQ Side left Equipment Used 5# Reps/Minutes 3sec x12 SLR Supine Exercise Name SLR foot at 10, 12 and 1 O' Clock Side left Reps/Minutes 5x ea Comments 10 oclock uncomfortable stretch Supine Exercise Name piriformis Side left Reps/Minutes 30 sec Sidelying Exercises abd Side left Reps/Minutes 15 ER Side left Equipment Used L2 Reps/Minutes 6 Manual Therapy Treatment Soft Tissue Mobilization ITB Body Location L Mobilization Type Rolling,Strumming Intensity/Depth Moderate Body Position Supine adductors Body Location L Mobilization Type Rolling,Strumming Intensity/Depth Moderate Body Position Supine quad Body Location L VMO borders Mobilization Type Rolling,Other Intensity/Depth Moderate Body Position Hooklying Neuro Re-Education Treatment Balance Activities SLS Comments 1. w/rotation B 2. Y reach x3 B 3. SLS EC 4. on blue side Bosu B bosu Comments 1. DL balance blue side EC - pt able to perform today 2. march on blue side B x15 3. step up blue side w/alt june x10 B 4. mini squats x10 ea- on blue side and black side 5.SLS blue side B 5. black side balance EC 6. fwd mini lunge blue side x8 B PT-OP-R Modalities Start: 11/15/21 17:52 Freq: Status: Active Protocol: Document 12/26/21 15:26 [facility] (Rec: 12/26/21 16:02 [facility] [id number]) Hot Pack/Cold Pack Treatment Cold Pack Location L knee Patient Position Hooklying Treatment Duration (minutes) 5 Patient Tolerance Fair PT-OP-T Assessment and Plan Start: 11/15/21 17:52 Freq: Status: Active Protocol: Document 01/16/22 13:45 [facility] (Rec: 01/16/22 14:32 [facility] [id number]) Physical Therapy Assessment Goals balacne Snf Goal (LTG) Pt will be able to do SLS for 30 sec on L side w/o lat shear of pelvis or use of UEs or pain LTG Duration 02/16 stairs Snf Goal (LTG) Pt will be able to descend stairs fwd reciprocally w/o rail w/o pain or feeling of instability. LTG Duration 02/16 activities Short Term Goal (STG) pt will be able to walk and stand w/o feeling of LLE giving out STG Duration 01/16 Nurse Substance Abuse Goal (LTG) Pt will be able to run to play w/kids w/o pain, and fear of LE giving out and be able to skateboard. LTG Duration 02/16 strength Short Term Goal (STG) Pt will be consistant and indep w/performance of HEP STG Duration 01/16 Snf Goal (LTG) Pt will score at least 3/5 on LPM into all planes and 5/5 on MMT LEs B to shwo improved stability to dec pt feelign of instability. LTG Duration 02/16 LEFS Impairment 30/80 Short Term Goal (STG) Pt will score at least 45/80 on LEFS to show improved function. STG Duration 01/06 Snf Goal (LTG) Pt will score at least 70/80 on LEFS to show improved function. LTG Duration 02/16 Assessment Summary Assessment Pt did well with all exercises but does fatigue on L side with activity. Only pain noted w/ER SLR and noted cramp in glute after hip abd then some clamshells so stopped clamshells. Physical Therapy Plan Frequency and Duration Frequency of Treatment 1-2x/week Plan of Care Start Date 11/16/21 Plan of Care End Date 02/16/22 Next Visit Focus/Plan Next Note Type Treatment Note Next Visit Plan cont to work on hip and ankle strengthening and hamstring mobility for improved knee function, cont to work on stabilizing knee.
--- NOTE | 2022-01-18 15:33 | PT-OP ANOTE ---
Pt called re: no show and left message re: no show and the policy. Informed of next scheduled appt.
--- NOTE | 2022-01-25 12:15 | PT.OTN ---
Current Diagnoses Other chronic pain (01/25/22) Pain in left knee (01/25/22) Difficulty in walking, not elsewhere classified (01/25/22) Abnormal posture (01/25/22) Weakness (01/25/22) Physical Therapy Treatment Note PT-OP-A Visit Information Start: 11/15/21 17:52 Freq: Status: Active Protocol: Document 01/25/22 11:22 [facility] (Rec: 01/25/22 12:15 [facility] [id number]) Out-Patient Physical Therapy Visit Information Visit Information Visit Type Treatment Note Visit Start Time 11:20 Visit Stop Time 12:00 Total Visit Minutes 40 Visit Number 13 Number of FINANCIAL SERVICES REPRESENTATIVE Visits 0 PT-OP-B Current Condition Start: 11/15/21 17:52 Freq: Status: Active Protocol: Document 11/16/21 13:50 [facility] (Rec: 11/16/21 14:52 [facility] [id number]) Current Condition History of Current Condition Onset Date 2014 Current Complaints L knee History of Current Condition Pt was skateboarding and came down from a high jump and came down hard on it as he was higher from the ground than he thoguht. he couldn't walk on it initially,but didn't get insurance so didn't get it checked out. This happened in 2014. It improved slightly between the initial incident and the hike incident. A couple years ago, his knee twisted and came under him med when stepping on a root and had inc pain. Pt reports knee gives out occ on him. He hasn' t been able to skateboard sicne the initial injury. Notes leg feels like a toothpick. If he bends it wrong, or lifts something too heavy, he can feel it. He is limited re: finding work d/t he is not comofrtable lifting heavy things d/t it hurts the knee. When he is stadnign it feels like it is going to buckle inwards sometimes. The thought of his injury makes him cringe still. He tires to run to play w/his kiddos but it is very unable and he is unable to really run. He doenst feel like knee would be stable if he has to catch himself on it. He has been trying to get on bike. he has been doing some mini squats and other exercises to try to keep his leg strong. Pt reports upper scap pain into head. Pt reports knee feels more fragile now. When he gets the sharp pain, it feels like it brings him back to the original trama. Treatment Goals Patient/Caregiver Goals be able to run w/o fear of it giving out, be able ride his skateboard PT-OP-C Subjective Start: 11/15/21 17:52 Freq: Status: Active Protocol: Document 01/25/22 11:22 [facility] (Rec: 01/25/22 12:15 [facility] [id number]) OP-PT Subjective Patient Comments Patient Comments Pt reports he is awaiting a call to get MRI PT-OP-D Balance Start: 11/15/21 17:52 Freq: Status: Active Protocol: Document 11/16/21 13:50 [facility] (Rec: 11/16/21 14:52 [facility] [id number]) Balance Tests Single Limb Standing Single Limb- Right >30 sec w/lat shear towards end Single Limb- Left 27 sec pain, lat shear of pelvis, knee bent, rotated R, IR of LLE PT-OP-F Manual Assessment Start: 11/15/21 17:52 Freq: Status: Active Protocol: Document 11/16/21 13:50 [facility] (Rec: 11/16/21 14:52 [facility] [id number]) Manual Assessments Soft Tissue Assessment Soft Tissue Mobility Assessment tender at med joint line Joint Mobility Assessment Joint Mobility Assessment L rearfoot varus, &forefoot varus; ER femur, IR tibia, L foot ER, arch L collapsed more than R PT-OP-G Mobility & Gait Start: 11/15/21 17:52 Freq: Status: Active Protocol: Document 11/16/21 13:50 [facility] (Rec: 11/16/21 14:52 [facility] [id number]) OP Gait Assessment Comments Gait Comments harder foot slap LLE, dec push off B, lat lean over LLE PT-OP-J Posture/Palpation/Skin Start: 11/15/21 17:52 Freq: Status: Active Protocol: Document 11/16/21 13:50 [facility] (Rec: 11/16/21 14:52 [facility] [id number]) Posture Evaluation [facility] Postural Classification System Lumbar Protective Mechanism Left AP 0 Lumbar Protective Mechanism Right AP 3 Lumbar Protective Mechanism Left PA 1 Lumbar Protective Mechanism Right PA 1 PT-OP-K Range of Motion Start: 11/15/21 17:52 Freq: Status: Active Protocol: Document 11/16/21 13:50 [facility] (Rec: 11/16/21 14:52 [facility] [id number]) Knee Goniometric Range of Motion Knee Right Flexion Active (degrees) 140 Extension Active (degrees) 0 Left Flexion Active (degrees) 134 Extension Active (degrees) 0 PT-OP-L Special Tests Start: 11/15/21 17:52 Freq: Status: Active Protocol: Document 11/16/21 13:50 [facility] (Rec: 11/16/21 14:52 [facility] [id number]) Special Tests Lumbar Spine Special Tests Slump Test Results neg Knee Special Tests Elsy Test Test Results posiitve w/ER of tibia into ext-pain & lock sensation Apley's Compression Test Results neg Posterior Draw Test Results neg Young Chondromalacia Test Results neg no pain w/ex Lucila's Test Results neg Paniagua's Compression Test Results neg Corie's Test Test Results positive L Straight Leg Raise Test Results 72 R; 64 L Gordon Comments L tight hip flexors, RF & TFL Thessaly Test 20 Degrees Test Results neg for pain-feels unstable Varus- 25 Degrees Test Results neg L Valgus- 25 Degrees Test Results positive for laxity in 0 deg & 25 sec & unstable position, Pt guards PT-OP-M Strength Start: 11/15/21 17:52 Freq: Status: Active Protocol: Document 11/16/21 13:50 [facility] (Rec: 11/16/21 14:52 [facility] [id number]) Hip Strength Hip Manual Muscle Testing Right Flexion (L2) 5 Normal Extension (S1) 5 Normal Abduction 5 Normal Adduction 5 Normal External Rotation 5 Normal Internal Rotation 5 Normal Left Flexion (L2) 4- Good- Extension (S1) 3+ Fair+ Abduction 4- Good- Adduction 3+ Fair+ External Rotation 4 Good Internal Rotation 4 Good Comments Dec trunk stability w/LE testing -dec core connection to LE Knee Strength Knee Manual Muscle Testing Right Flexion (S2) 5 Normal Extension (L3) 5 Normal Left Flexion (S2) 4+ Good+ Extension (L3) 4- Good- Ankle/Foot Strength Ankle and Foot Manual Muscle Testing Right Dorsiflexion (L4) 5 Normal Plantarflexion (S1) 5 Normal Comments 20 heel raises Left Dorsiflexion (L4) 5 Normal Plantarflexion (S1) 5 Normal Comments 20 heel raises-pain in knee & made knee feel weak PT-OP-Q Treatments Start: 11/15/21 17:52 Freq: Status: Active Protocol: Document 01/25/22 11:22 [facility] (Rec: 01/25/22 12:15 [facility] [id number]) Therapeutic Exercises Standing Exercises step down Standing Exercise Name 4 in &5 in Side bilateral Reps/Minutes 10 ea Comments cues for fwd & slow and controlled SL Standing Exercise Name squat holding rail Side bilateral Reps/Minutes x5 Manual Therapy Treatment Soft Tissue Mobilization glute Body Location L Mobilization Type Sustained Pressure Intensity/Depth Moderate Comments w/hip IR/ER Joint Mobilizations innominate Joint L Direction ER FM Comments manual COI in new range hip Joint L Direction on axis ER FM Neuro Re-Education Treatment Balance Activities SLS Comments 1. w/rotation B 2. Y reach x3 B 3. SLS EC bosu Comments 1. DL balance blue and black side EC 2. march on blue side B x20 3. step up blue side w/alt march x10 B 4. mini squats x10 ea- on blue side and black side 5.SLS blue side B 6. fwd mini lunge blue side x10 B PT-OP-R Modalities Start: 11/15/21 17:52 Freq: Status: Active Protocol: Document 12/26/21 15:26 [facility] (Rec: 12/26/21 16:02 [facility] [id number]) Hot Pack/Cold Pack Treatment Cold Pack Location L knee Patient Position Hooklying Treatment Duration (minutes) 5 Patient Tolerance Fair PT-OP-T Assessment and Plan Start: 11/15/21 17:52 Freq: Status: Active Protocol: Document 01/25/22 11:22 [facility] (Rec: 01/25/22 12:15 [facility] [id number]) Physical Therapy Assessment Goals balacne Detention Goal (LTG) Pt will be able to do SLS for 30 sec on L side w/o lat shear of pelvis or use of UEs or pain LTG Duration achieved 01/25 stairs Leasing Agent Goal (LTG) Pt will be able to descend stairs fwd reciprocally w/o rail w/o pain or feeling of instability. 01/25-unstable feeling LTG Duration 02/16 activities Short Term Goal (STG) pt will be able to walk and stand w/o feeling of LLE giving out 01/25-still occ STG Duration 01/16 Detention Goal (LTG) Pt will be able to run to play w/kids w/o pain, and fear of LE giving out and be able to skateboard. LTG Duration 02/16 strength Short Term Goal (STG) Pt will be consistant and indep w/performance of HEP STG Duration 01/16 Leasing Agent Goal (LTG) Pt will score at least 3/5 on LPM into all planes and 5/5 on MMT LEs B to shwo improved stability to dec pt feelign of instability. LTG Duration 02/16 LEFS Impairment 30/80 Short Term Goal (STG) Pt will score at least 45/80 on LEFS to show improved function. STG Duration 01/06 Detention Goal (LTG) Pt will score at least 70/80 on LEFS to show improved function. LTG Duration 02/16 Assessment Summary Assessment Pt cont to show imrpoved stability w/squat/stair exercises but is weak w/step down still. He had dec oscillation of knee w/step down after manual and improved L knee tracking. Physical Therapy Plan Frequency and Duration Frequency of Treatment 1-2x/week Plan of Care Start Date 11/16/21 Plan of Care End Date 02/16/22 Therapeutic Interventions Therapeutic Interventions Aquatic Therapy,Balance Training,Gait Training,Home Exercise Program,Joint Mobilizations,Manual Therapy, Neuromuscular Re-education, Orthotic/Prosthetic Management ,Patient/Caregiver Education, Self-Care/Home Management,Soft Tissue Mobilization,Taping, Therapeutic Activities, Therapeutic Exercises Modalities Cold Pack/Ice Massage,Electric Stimulation,Hot Packs, Infrared Therapy,Iontophoresis ,Ultrasound Next Visit Focus/Plan Next Note Type Treatment Note Next Visit Plan cont to work on hip and ankle strengthening and hamstring mobility for improved knee function, cont to work on stabilizing knee.
--- NOTE | 2022-02-13 18:31 | PT.OTN ---
Current Diagnoses Other chronic pain (02/13/22) Pain in left knee (02/13/22) Difficulty in walking, not elsewhere classified (02/13/22) Abnormal posture (02/13/22) Weakness (02/13/22) Physical Therapy Treatment Note PT-OP-A Visit Information Start: 11/15/21 17:52 Freq: Status: Active Protocol: Document 02/13/22 14:36 NB (Rec: 02/13/22 18:29 NB [id number]) Out-Patient Physical Therapy Visit Information Visit Information Visit Type Treatment Note Visit Start Time 14:36 Visit Stop Time 15:15 Total Visit Minutes 39 Visit Number 14 Number of ORAL AND MAXILLOFACIAL SURGERY Visits 1 PT-OP-B Current Condition Start: 11/15/21 17:52 Freq: Status: Active Protocol: Document 11/16/21 13:50 LR (Rec: 11/16/21 14:52 [facility] [id number]) Current Condition History of Current Condition Onset Date 2014 Current Complaints L knee History of Current Condition Pt was skateboarding and came down from a high jump and came down hard on it as he was higher from the ground than he thoguht. he couldn't walk on it initially,but didn't get insurance so didn't get it checked out. This happened in 2014. It improved slightly between the initial incident and the hike incident. A couple years ago, his knee twisted and came under him med when stepping on a root and had inc pain. Pt reports knee gives out occ on him. He hasn' t been able to skateboard sicne the initial injury. Notes leg feels like a toothpick. If he bends it wrong, or lifts something too heavy, he can feel it. He is limited re: finding work d/t he is not comofrtable lifting heavy things d/t it hurts the knee. When he is stadnign it feels like it is going to buckle inwards sometimes. The thought of his injury makes him cringe still. He tires to run to play w/his kiddos but it is very unable and he is unable to really run. He doenst feel like knee would be stable if he has to catch himself on it. He has been trying to get on bike. he has been doing some mini squats and other exercises to try to keep his leg strong. Pt reports upper scap pain into head. Pt reports knee feels more fragile now. When he gets the sharp pain, it feels like it brings him back to the original trama. Treatment Goals Patient/Caregiver Goals be able to run w/o fear of it giving out, be able ride his skateboard PT-OP-C Subjective Start: 11/15/21 17:52 Freq: Status: Active Protocol: Document 02/13/22 14:36 [facility] (Rec: 02/13/22 18:29 [facility] [id number]) OP-PT Subjective Patient Comments Patient Comments Pt reports his MRI results show a torn ACL and meniscus and he'll need surgery. He states his MD advised that if he doesn't hear from the surgeon's office by Saturday to call, and to wear a knee brace to prevent further injury. Pt reports he quit [employer] job a few weeks ago. PT-OP-D Balance Start: 11/15/21 17:52 Freq: Status: Active Protocol: Document 11/16/21 13:50 [facility] (Rec: 11/16/21 14:52 [facility] [id number]) Balance Tests Single Limb Standing Single Limb- Right >30 sec w/lat shear towards end Single Limb- Left 27 sec pain, lat shear of pelvis, knee bent, rotated R, IR of LLE PT-OP-F Manual Assessment Start: 11/15/21 17:52 Freq: Status: Active Protocol: Document 11/16/21 13:50 [facility] (Rec: 11/16/21 14:52 [facility] [id number]) Manual Assessments Soft Tissue Assessment Soft Tissue Mobility Assessment tender at med joint line Joint Mobility Assessment Joint Mobility Assessment L rearfoot varus, &forefoot varus; ER femur, IR tibia, L foot ER, arch L collapsed more than R PT-OP-G Mobility & Gait Start: 11/15/21 17:52 Freq: Status: Active Protocol: Document 11/16/21 13:50 [facility] (Rec: 11/16/21 14:52 [facility] [id number]) OP Gait Assessment Comments Gait Comments harder foot slap LLE, dec push off B, lat lean over LLE PT-OP-J Posture/Palpation/Skin Start: 11/15/21 17:52 Freq: Status: Active Protocol: Document 11/16/21 13:50 [facility] (Rec: 11/16/21 14:52 [facility] [id number]) Posture Evaluation [facility] Postural Classification System Lumbar Protective Mechanism Left AP 0 Lumbar Protective Mechanism Right AP 3 Lumbar Protective Mechanism Left PA 1 Lumbar Protective Mechanism Right PA 1 PT-OP-K Range of Motion Start: 11/15/21 17:52 Freq: Status: Active Protocol: Document 11/16/21 13:50 [facility] (Rec: 11/16/21 14:52 [facility] [id number]) Knee Goniometric Range of Motion Knee Right Flexion Active (degrees) 140 Extension Active (degrees) 0 Left Flexion Active (degrees) 134 Extension Active (degrees) 0 PT-OP-L Special Tests Start: 11/15/21 17:52 Freq: Status: Active Protocol: Document 11/16/21 13:50 [facility] (Rec: 11/16/21 14:52 [facility] [id number]) Special Tests Lumbar Spine Special Tests Slump Test Results neg Knee Special Tests Elsy Test Test Results posiitve w/ER of tibia into ext-pain & lock sensation Apley's Compression Test Results neg Posterior Draw Test Results neg Young Chondromalacia Test Results neg no pain w/ex Lucila's Test Results neg Paniagua's Compression Test Results neg Corie's Test Test Results positive L Straight Leg Raise Test Results 72 R; 64 L Gordon Comments L tight hip flexors, RF & TFL Thessaly Test 20 Degrees Test Results neg for pain-feels unstable Varus- 25 Degrees Test Results neg L Valgus- 25 Degrees Test Results positive for laxity in 0 deg & 25 sec & unstable position, Pt guards PT-OP-M Strength Start: 11/15/21 17:52 Freq: Status: Active Protocol: Document 11/16/21 13:50 [facility] (Rec: 11/16/21 14:52 [facility] [id number]) Hip Strength Hip Manual Muscle Testing Right Flexion (L2) 5 Normal Extension (S1) 5 Normal Abduction 5 Normal Adduction 5 Normal External Rotation 5 Normal Internal Rotation 5 Normal Left Flexion (L2) 4- Good- Extension (S1) 3+ Fair+ Abduction 4- Good- Adduction 3+ Fair+ External Rotation 4 Good Internal Rotation 4 Good Comments Dec trunk stability w/LE testing -dec core connection to LE Knee Strength Knee Manual Muscle Testing Right Flexion (S2) 5 Normal Extension (L3) 5 Normal Left Flexion (S2) 4+ Good+ Extension (L3) 4- Good- Ankle/Foot Strength Ankle and Foot Manual Muscle Testing Right Dorsiflexion (L4) 5 Normal Plantarflexion (S1) 5 Normal Comments 20 heel raises Left Dorsiflexion (L4) 5 Normal Plantarflexion (S1) 5 Normal Comments 20 heel raises-pain in knee & made knee feel weak PT-OP-Q Treatments Start: 11/15/21 17:52 Freq: Status: Active Protocol: Document 02/13/22 14:36 [facility] (Rec: 02/13/22 18:29 [facility] [id number]) Therapeutic Exercises Standing Exercises Hamstring stretch Standing Exercise Name Hamstring stretch Side bilateral Equipment Used 2nd step of stairs Reps/Minutes 60SH x 1 Comments cues for form, excessive hip ER squat Standing Exercise Name DL squat Side bilateral Reps/Minutes 10 Comments vc knees behind toes, hip hinge Neuro Re-Education Treatment Balance Activities SLS Comments 1. w/rotation B 2. Y reach x3 B 3. SLS EC - not done bosu Comments 1. DL balance blue and black side EC 2. march on blue side B x20 - vc to engage glutes, upright posture 3. step up blue side w/alt june x10 B - not done 4. mini squats x10 ea- on blue side and black side 5.SLS blue side B - not done 6. fwd mini lunge blue side x10 B - not done Self-Care/Home Management Treatment Education Other Education -Discussion w/ pt and evaluating PT re: MRI results of torn ACL and partial tear of medial meniscus and referral for surgery - plan to cont PT with continuing focus on improving stability until end of year, and to return after surgery. -Explained no cutting/pivoting . -Adjustment of L knee brace for improvied comfort and fit. PT-OP-R Modalities Start: 11/15/21 17:52 Freq: Status: Active Protocol: Document 12/26/21 15:26 [facility] (Rec: 12/26/21 16:02 [facility] [id number]) Hot Pack/Cold Pack Treatment Cold Pack Location L knee Patient Position Hooklying Treatment Duration (minutes) 5 Patient Tolerance Fair PT-OP-T Assessment and Plan Start: 11/15/21 17:52 Freq: Status: Active Protocol: Document 11/08/22 14:36 [facility] (Rec: 02/13/22 18:29 [facility] [id number]) Physical Therapy Assessment Goals balacne Mcfp Goal (LTG) Pt will be able to do SLS for 30 sec on L side w/o lat shear of pelvis or use of UEs or pain LTG Duration achieved 10/20 stairs Mcfp Goal (LTG) Pt will be able to descend stairs fwd reciprocally w/o rail w/o pain or feeling of instability. 01/25-unstable feeling LTG Duration 02/16 activities Short Term Goal (STG) pt will be able to walk and stand w/o feeling of LLE giving out 01/25-still occ STG Duration 01/16 Mcfp Goal (LTG) Pt will be able to run to play w/kids w/o pain, and fear of LE giving out and be able to skateboard. LTG Duration 02/16 strength Short Term Goal (STG) Pt will be consistant and indep w/performance of HEP STG Duration 01/16 Rectifying Attendant Goal (LTG) Pt will score at least 3/5 on LPM into all planes and 5/5 on MMT LEs B to shwo improved stability to dec pt feelign of instability. LTG Duration 02/16 LEFS Impairment 30/80 Short Term Goal (STG) Pt will score at least 45/80 on LEFS to show improved function. STG Duration 01/06 Rectifying Attendant Goal (LTG) Pt will score at least 70/80 on LEFS to show improved function. LTG Duration 02/16 Assessment Summary Assessment Khoa arrives w/ L knee brace per MD due to MRI results of torn ACL and medial meniscus. Discussion w/ pt and evaluating PT re: MRI results- plan to cont PT w/ continuing focus on improving stability until end of year, and to return after surgery. Explained no cutting/pivoting and pt expresses understanding . Adjustment of L knee brace for improved comfort and fit w / good feedback response. Pt requires initial cues for maintaining knees behind toes with DL squats and for form w/ standing hamstring stretch. Reminded pt next appt w/ PT . Physical Therapy Plan Frequency and Duration Frequency of Treatment 1-2x/week Plan of Care Start Date 11/16/21 Plan of Care End Date 02/16/22 Therapeutic Interventions Therapeutic Interventions Aquatic Therapy,Balance Training,Gait Training,Home Exercise Program,Joint Mobilizations,Manual Therapy, Neuromuscular Re-education, Orthotic/Prosthetic Management ,Patient/Caregiver Education, Self-Care/Home Management,Soft Tissue Mobilization,Taping, Therapeutic Activities, Therapeutic Exercises Modalities Cold Pack/Ice Massage,Electric Stimulation,Hot Packs, Infrared Therapy,Iontophoresis ,Ultrasound Next Visit Focus/Plan Next Note Type Treatment Note Next Visit Plan cont to work on hip and ankle strengthening and hamstring mobility for improved knee function, cont to work on stabilizing knee.
--- NOTE | 2022-02-20 14:33 | PT.OTN ---
Current Diagnoses Other chronic pain (02/20/22) Pain in left knee (02/20/22) Difficulty in walking, not elsewhere classified (02/20/22) Abnormal posture (02/20/22) Weakness (02/20/22) Physical Therapy Treatment Note PT-OP-A Visit Information Start: 11/15/21 17:52 Freq: Status: Active Protocol: Document 02/20/22 13:50 [facility] (Rec: 02/20/22 14:33 [facility] [id number]) Out-Patient Physical Therapy Visit Information Visit Information Visit Type Progress Note Visit Start Time 13:50 Visit Stop Time 14:30 Total Visit Minutes 40 Visit Number 15 Number of AIR INTELLIGENCE SPECIALIST Visits 0 PT-OP-B Current Condition Start: 11/15/21 17:52 Freq: Status: Active Protocol: Document 11/16/21 13:50 [facility] (Rec: 11/16/21 14:52 [facility] [id number]) Current Condition History of Current Condition Onset Date 2014 Current Complaints L knee History of Current Condition Pt was skateboarding and came down from a high jump and came down hard on it as he was higher from the ground than he thoguht. he couldn't walk on it initially,but didn't get insurance so didn't get it checked out. This happened in 2014. It improved slightly between the initial incident and the hike incident. A couple years ago, his knee twisted and came under him med when stepping on a root and had inc pain. Pt reports knee gives out occ on him. He hasn' t been able to skateboard sicne the initial injury. Notes leg feels like a toothpick. If he bends it wrong, or lifts something too heavy, he can feel it. He is limited re: finding work d/t he is not comofrtable lifting heavy things d/t it hurts the knee. When he is stadnign it feels like it is going to buckle inwards sometimes. The thought of his injury makes him cringe still. He tires to run to play w/his kiddos but it is very unable and he is unable to really run. He doenst feel like knee would be stable if he has to catch himself on it. He has been trying to get on bike. he has been doing some mini squats and other exercises to try to keep his leg strong. Pt reports upper scap pain into head. Pt reports knee feels more fragile now. When he gets the sharp pain, it feels like it brings him back to the original trama. Treatment Goals Patient/Caregiver Goals be able to run w/o fear of it giving out, be able ride his skateboard PT-OP-C Subjective Start: 11/15/21 17:52 Freq: Status: Active Protocol: Document 02/20/22 13:50 [facility] (Rec: 02/20/22 14:33 [facility] [id number]) OP-PT Subjective Patient Comments Patient Comments Pt reports he does feel like PT has helped w/stability Patient Questionnaires Lower Extremity Functional Scale LEFS Score 48 PT-OP-D Balance Start: 11/15/21 17:52 Freq: Status: Active Protocol: Document 02/20/22 13:50 [facility] (Rec: 02/20/22 14:33 [facility] [id number]) Balance Tests Single Limb Standing Single Limb- Right >30 sec Single Limb- Left >30 sec PT-OP-F Manual Assessment Start: 11/15/21 17:52 Freq: Status: Active Protocol: Document 11/16/21 13:50 [facility] (Rec: 11/16/21 14:52 [facility] [id number]) Manual Assessments Soft Tissue Assessment Soft Tissue Mobility Assessment tender at med joint line Joint Mobility Assessment Joint Mobility Assessment L rearfoot varus, &forefoot varus; ER femur, IR tibia, L foot ER, arch L collapsed more than R PT-OP-G Mobility & Gait Start: 11/15/21 17:52 Freq: Status: Active Protocol: Document 11/16/21 13:50 [facility] (Rec: 11/16/21 14:52 [facility] [id number]) OP Gait Assessment Comments Gait Comments harder foot slap LLE, dec push off B, lat lean over LLE PT-OP-J Posture/Palpation/Skin Start: 11/15/21 17:52 Freq: Status: Active Protocol: Document 02/20/22 13:50 [facility] (Rec: 02/20/22 14:33 [facility] [id number]) Posture Evaluation [facility] Postural Classification System Lumbar Protective Mechanism Left AP 3 Lumbar Protective Mechanism Right AP 3 Lumbar Protective Mechanism Left PA 3 Lumbar Protective Mechanism Right PA 2 PT-OP-K Range of Motion Start: 11/15/21 17:52 Freq: Status: Active Protocol: Document 11/16/21 13:50 [facility] (Rec: 11/16/21 14:52 [facility] [id number]) Knee Goniometric Range of Motion Knee Right Flexion Active (degrees) 140 Extension Active (degrees) 0 Left Flexion Active (degrees) 134 Extension Active (degrees) 0 PT-OP-L Special Tests Start: 11/15/21 17:52 Freq: Status: Active Protocol: Document 11/16/21 13:50 [facility] (Rec: 11/16/21 14:52 [facility] [id number]) Special Tests Lumbar Spine Special Tests Slump Test Results neg Knee Special Tests Elsy Test Test Results posiitve w/ER of tibia into ext-pain & lock sensation Apley's Compression Test Results neg Posterior Draw Test Results neg Young Chondromalacia Test Results neg no pain w/ex Lucila's Test Results neg Paniagua's Compression Test Results neg Corie's Test Test Results positive L Straight Leg Raise Test Results 72 R; 64 L Gordon Comments L tight hip flexors, RF & TFL Thessaly Test 20 Degrees Test Results neg for pain-feels unstable Varus- 25 Degrees Test Results neg L Valgus- 25 Degrees Test Results positive for laxity in 0 deg & 25 sec & unstable position, Pt guards PT-OP-M Strength Start: 11/15/21 17:52 Freq: Status: Active Protocol: Document 02/20/22 13:50 [facility] (Rec: 02/20/22 14:33 [facility] [id number]) Hip Strength Hip Manual Muscle Testing Right Flexion (L2) 5 Normal Extension (S1) 5 Normal Abduction 5 Normal Adduction 5 Normal External Rotation 5 Normal Internal Rotation 5 Normal Left Flexion (L2) 5 Normal Extension (S1) 4+ Good+ Abduction 5 Normal Adduction 4 Good External Rotation 5 Normal Internal Rotation 5 Normal Knee Strength Knee Manual Muscle Testing Right Flexion (S2) 5 Normal Extension (L3) 5 Normal Left Flexion (S2) 5 Normal Extension (L3) 4+ Good+ Ankle/Foot Strength Ankle and Foot Manual Muscle Testing Right Dorsiflexion (L4) 5 Normal Plantarflexion (S1) 5 Normal Comments 20 heel raises Left Dorsiflexion (L4) 5 Normal Plantarflexion (S1) 5 Normal Comments 20 heel raises PT-OP-Q Treatments Start: 11/15/21 17:52 Freq: Status: Active Protocol: Document 02/20/22 13:50 [facility] (Rec: 02/20/22 14:33 [facility] [id number]) Gym Equipment Shuttle Recovery Unilateral Squats Details B Resistance 50# Shuttle Recovery Platform Stable Reps/Time 2x10 Therapeutic Exercises Standing Exercises step down Standing Exercise Name 4 in Side left Equipment Used counter prn Reps/Minutes 10 Comments cues for fwd & slow and controlled TKE Standing Exercise Name TKE Side left Resistance TB #3 Reps/Minutes x15 reps Manual Therapy Treatment Soft Tissue Mobilization ITB Body Location L Mobilization Type Rolling,Strumming Intensity/Depth Moderate Body Position Supine calf Body Location L med border calf Mobilization Type Rolling,Strumming Intensity/Depth Moderate Body Position Hooklying quad Body Location L lat Mobilization Type Rolling,Other Intensity/Depth Moderate Body Position Hooklying Neuro Re-Education Treatment Balance Activities bosu Comments 1. DL balance blue and black side EC 2. march on blue side B x20 - vc to engage glutes, upright posture 3. step up blue side w/alt june x10 B 4. mini squats x10 ea- on blue side and black side 5.SLS blue side B 6. fwd mini lunge blue side x10 B 7. lat lunge B x10 PT-OP-R Modalities Start: 11/15/21 17:52 Freq: Status: Active Protocol: Document 12/26/21 15:26 [facility] (Rec: 12/26/21 16:02 [facility] [id number]) Hot Pack/Cold Pack Treatment Cold Pack Location L knee Patient Position Hooklying Treatment Duration (minutes) 5 Patient Tolerance Fair PT-OP-T Assessment and Plan Start: 11/15/21 17:52 Freq: Status: Active Protocol: Document 02/20/22 13:50 [facility] (Rec: 02/20/22 14:33 [facility] [id number]) Physical Therapy Assessment Goals balacne Fdc Goal (LTG) Pt will be able to do SLS for 30 sec on L side w/o lat shear of pelvis or use of UEs or pain LTG Duration achieved 01/25 stairs Fdc Goal (LTG) Pt will be able to descend stairs fwd reciprocally w/o rail w/o pain or feeling of instability. 01/25-unstable feeling 02/20-unstable if fwd facing w /down; up ok LTG Duration 04/17 activities Short Term Goal (STG) pt will be able to walk and stand w/o feeling of LLE giving out 01/25-still occ STG Duration 03/17 Fdc Goal (LTG) Pt will be able to run to play w/kids w/o pain, and fear of LE giving out and be able to skateboard. 02/20-has started riding scooters with kids now but still concern about giving out LTG Duration 04/15 strength Short Term Goal (STG) Pt will be consistant and indep w/performance of HEP STG Duration 01/16 Fdc Goal (LTG) Pt will score at least 3/5 on LPM into all planes and 5/5 on MMT LEs B to shwo improved stability to dec pt feelign of instability. 02/20-improved LTG Duration 04/15 LEFS Impairment 30/80 Short Term Goal (STG) Pt will score at least 45/80 on LEFS to show improved function. STG Duration achieved 02/20 Garment Liner Goal (LTG) Pt will score at least 70/80 on LEFS to show improved function. LTG Duration 04/15 Assessment Summary Assessment Pt is making progress with overall strength, balance and stability. He is awaiting ortho appt to see if he is a candidate for surgery at this time. Cont PT to work on building pt strength and stability and dec pain. Physical Therapy Plan Frequency and Duration Frequency of Treatment 1-2x/week Duration of treatment (weeks) 8 Plan of Care Start Date 02/20/22 Plan of Care End Date 04/15/22 Therapeutic Interventions Therapeutic Interventions Aquatic Therapy,Balance Training,Gait Training,Home Exercise Program,Joint Mobilizations,Manual Therapy, Neuromuscular Re-education, Orthotic/Prosthetic Management ,Patient/Caregiver Education, Self-Care/Home Management,Soft Tissue Mobilization,Taping, Therapeutic Activities, Therapeutic Exercises Modalities Cold Pack/Ice Massage,Electric Stimulation,Hot Packs, Infrared Therapy,Iontophoresis ,Ultrasound Next Visit Focus/Plan Next Note Type Treatment Note Next Visit Plan cont to work on hip and ankle strengthening and hamstring mobility for improved knee function, cont to work on stabilizing knee.
--- NOTE | 2022-02-20 14:34 | PT.OPPOC ---
Physical, Occupational & Speech Therapy At [facility] Current Diagnoses Other chronic pain (02/20/22) Pain in left knee (02/20/22) Difficulty in walking, not elsewhere classified (02/20/22) Abnormal posture (02/20/22) Weakness (02/20/22) Visit Care Team Role Provider Type Marino Draper DO Attending Provider Physician Family Provider Primary Care Provider Referring Provider Specialty: Family Practice Address: [address] [place] [address], [employer] Email: [email or web address] Plan Of Care PT-OP-T Assessment and Plan Start: 11/15/21 17:52 Freq: Status: Active Protocol: Document 02/20/22 13:50 [facility] (Rec: 02/20/22 14:33 [facility] [id number]) Physical Therapy Assessment Goals balacne Detention Goal (LTG) Pt will be able to do SLS for 30 sec on L side w/o lat shear of pelvis or use of UEs or pain LTG Duration achieved 01/25 stairs Public Relations Coordinator Goal (LTG) Pt will be able to descend stairs fwd reciprocally w/o rail w/o pain or feeling of instability. 01/25-unstable feeling 02/20-unstable if fwd facing w /down; up ok LTG Duration 04/17 activities Short Term Goal (STG) pt will be able to walk and stand w/o feeling of LLE giving out 01/25-still occ STG Duration 03/17 Detention Goal (LTG) Pt will be able to run to play w/kids w/o pain, and fear of LE giving out and be able to skateboard. 02/20-has started riding scooters with kids now but still concern about giving out LTG Duration 04/15 strength Short Term Goal (STG) Pt will be consistant and indep w/performance of HEP STG Duration 01/16 Public Relations Coordinator Goal (LTG) Pt will score at least 3/5 on LPM into all planes and 5/5 on MMT LEs B to shwo improved stability to dec pt feelign of instability. 02/20-improved LTG Duration 04/15 LEFS Impairment 30/80 Short Term Goal (STG) Pt will score at least 45/80 on LEFS to show improved function. STG Duration achieved 02/20 Public Relations Coordinator Goal (LTG) Pt will score at least 70/80 on LEFS to show improved function. LTG Duration 04/15 Assessment Summary Assessment Pt is making progress with overall strength, balance and stability. He is awaiting ortho appt to see if he is a candidate for surgery at this time. Cont PT to work on building pt strength and stability and dec pain. Physical Therapy Plan Frequency and Duration Frequency of Treatment 1-2x/week Duration of treatment (weeks) 8 Plan of Care Start Date 02/20/22 Plan of Care End Date 04/15/22 Therapeutic Interventions Therapeutic Interventions Aquatic Therapy,Balance Training,Gait Training,Home Exercise Program,Joint Mobilizations,Manual Therapy, Neuromuscular Re-education, Orthotic/Prosthetic Management ,Patient/Caregiver Education, Self-Care/Home Management,Soft Tissue Mobilization,Taping, Therapeutic Activities, Therapeutic Exercises Modalities Cold Pack/Ice Massage,Electric Stimulation,Hot Packs, Infrared Therapy,Iontophoresis ,Ultrasound Next Visit Focus/Plan Next Note Type Treatment Note Next Visit Plan cont to work on hip and ankle strengthening and hamstring mobility for improved knee function, cont to work on stabilizing knee. Plan of Care Dates Plan of Care Start Date 02/20/22 Plan of Care End Date 04/15/22 Electronically Signed by: Nga Tadeo, PT 02/20/22 7450 If you are in agreement with this Plan of Care, please return a signed and dated copy. I have reviewed this Plan of Care and certify that the skilled therapy services above are required to meet the patient?s needs. Physician Signature Date Printed Name and Credentials Clinical Instructor Signature Printed Name and Credentials
--- NOTE | 2022-03-06 13:46 | PT.OTN ---
Current Diagnoses Other chronic pain (03/06/22) Pain in left knee (03/06/22) Difficulty in walking, not elsewhere classified (03/06/22) Abnormal posture (03/06/22) Weakness (03/06/22) Physical Therapy Treatment Note PT-OP-A Visit Information Start: 11/15/21 17:52 Freq: Status: Active Protocol: Document 03/06/22 12:59 [facility] (Rec: 03/06/22 13:46 [facility] [id number]) Out-Patient Physical Therapy Visit Information Visit Information Visit Type Treatment Note Visit Start Time 13:01 Visit Stop Time 13:43 Total Visit Minutes 42 Visit Number 16 Number of HARVEST WORKER FRUIT Visits 0 PT-OP-B Current Condition Start: 11/15/21 17:52 Freq: Status: Active Protocol: Document 11/16/21 13:50 [facility] (Rec: 11/16/21 14:52 [facility] [id number]) Current Condition History of Current Condition Onset Date 2014 Current Complaints L knee History of Current Condition Pt was skateboarding and came down from a high jump and came down hard on it as he was higher from the ground than he thoguht. he couldn't walk on it initially,but didn't get insurance so didn't get it checked out. This happened in 2014. It improved slightly between the initial incident and the hike incident. A couple years ago, his knee twisted and came under him med when stepping on a root and had inc pain. Pt reports knee gives out occ on him. He hasn' t been able to skateboard sicne the initial injury. Notes leg feels like a toothpick. If he bends it wrong, or lifts something too heavy, he can feel it. He is limited re: finding work d/t he is not comofrtable lifting heavy things d/t it hurts the knee. When he is stadnign it feels like it is going to buckle inwards sometimes. The thought of his injury makes him cringe still. He tires to run to play w/his kiddos but it is very unable and he is unable to really run. He doenst feel like knee would be stable if he has to catch himself on it. He has been trying to get on bike. he has been doing some mini squats and other exercises to try to keep his leg strong. Pt reports upper scap pain into head. Pt reports knee feels more fragile now. When he gets the sharp pain, it feels like it brings him back to the original trama. Treatment Goals Patient/Caregiver Goals be able to run w/o fear of it giving out, be able ride his skateboard PT-OP-C Subjective Start: 11/15/21 17:52 Freq: Status: Active Protocol: Document 03/06/22 12:59 [facility] (Rec: 03/06/22 13:46 [facility] [id number]) OP-PT Subjective Patient Comments Patient Comments Pt reports sleeping funny and his neck was really in pain so he didn't do any exercises. Has not heard from the ortho yet PT-OP-D Balance Start: 11/15/21 17:52 Freq: Status: Active Protocol: Document 02/20/22 13:50 [facility] (Rec: 02/20/22 14:33 [facility] [id number]) Balance Tests Single Limb Standing Single Limb- Right >30 sec Single Limb- Left >30 sec PT-OP-F Manual Assessment Start: 11/15/21 17:52 Freq: Status: Active Protocol: Document 11/16/21 13:50 [facility] (Rec: 11/16/21 14:52 [facility] [id number]) Manual Assessments Soft Tissue Assessment Soft Tissue Mobility Assessment tender at med joint line Joint Mobility Assessment Joint Mobility Assessment L rearfoot varus, &forefoot varus; ER femur, IR tibia, L foot ER, arch L collapsed more than R PT-OP-G Mobility & Gait Start: 11/15/21 17:52 Freq: Status: Active Protocol: Document 11/16/21 13:50 [facility] (Rec: 11/16/21 14:52 [facility] [id number]) OP Gait Assessment Comments Gait Comments harder foot slap LLE, dec push off B, lat lean over LLE PT-OP-J Posture/Palpation/Skin Start: 11/15/21 17:52 Freq: Status: Active Protocol: Document 02/20/22 13:50 [facility] (Rec: 02/20/22 14:33 [facility] [id number]) Posture Evaluation [facility] Postural Classification System Lumbar Protective Mechanism Left AP 3 Lumbar Protective Mechanism Right AP 3 Lumbar Protective Mechanism Left PA 3 Lumbar Protective Mechanism Right PA 2 PT-OP-K Range of Motion Start: 11/15/21 17:52 Freq: Status: Active Protocol: Document 11/16/21 13:50 [facility] (Rec: 11/16/21 14:52 [facility] [id number]) Knee Goniometric Range of Motion Knee Right Flexion Active (degrees) 140 Extension Active (degrees) 0 Left Flexion Active (degrees) 134 Extension Active (degrees) 0 PT-OP-L Special Tests Start: 11/15/21 17:52 Freq: Status: Active Protocol: Document 11/16/21 13:50 [facility] (Rec: 11/16/21 14:52 [facility] [id number]) Special Tests Lumbar Spine Special Tests Slump Test Results neg Knee Special Tests Elsy Test Test Results posiitve w/ER of tibia into ext-pain & lock sensation Apley's Compression Test Results neg Posterior Draw Test Results neg Young Chondromalacia Test Results neg no pain w/ex Lucila's Test Results neg Paniagua's Compression Test Results neg Corie's Test Test Results positive L Straight Leg Raise Test Results 72 R; 64 L Gordon Comments L tight hip flexors, RF & TFL Thessaly Test 20 Degrees Test Results neg for pain-feels unstable Varus- 25 Degrees Test Results neg L Valgus- 25 Degrees Test Results positive for laxity in 0 deg & 25 sec & unstable position, Pt guards PT-OP-M Strength Start: 11/15/21 17:52 Freq: Status: Active Protocol: Document 02/20/22 13:50 [facility] (Rec: 02/20/22 14:33 [facility] [id number]) Hip Strength Hip Manual Muscle Testing Right Flexion (L2) 5 Normal Extension (S1) 5 Normal Abduction 5 Normal Adduction 5 Normal External Rotation 5 Normal Internal Rotation 5 Normal Left Flexion (L2) 5 Normal Extension (S1) 4+ Good+ Abduction 5 Normal Adduction 4 Good External Rotation 5 Normal Internal Rotation 5 Normal Knee Strength Knee Manual Muscle Testing Right Flexion (S2) 5 Normal Extension (L3) 5 Normal Left Flexion (S2) 5 Normal Extension (L3) 4+ Good+ Ankle/Foot Strength Ankle and Foot Manual Muscle Testing Right Dorsiflexion (L4) 5 Normal Plantarflexion (S1) 5 Normal Comments 20 heel raises Left Dorsiflexion (L4) 5 Normal Plantarflexion (S1) 5 Normal Comments 20 heel raises PT-OP-Q Treatments Start: 11/15/21 17:52 Freq: Status: Active Protocol: Document 03/06/22 12:59 [facility] (Rec: 03/06/22 13:46 [facility] [id number]) Gym Equipment Cable Column (Body Solid) Leg Curl Resistance 8, 7 Reps/Time 8, 15 Shuttle Recovery Unilateral Squats Details B Resistance 62# Shuttle Recovery Platform Stable Reps/Time 2x10 Therapeutic Exercises Standing Exercises Ankle PF Standing Exercise Name SL heel raises Side bilateral Equipment Used stair w/rail Reps/Minutes 2x10 TKE Standing Exercise Name TKE Side left Resistance TB #3 Reps/Minutes x25 reps stretch Standing Exercise Name 1. calf stretch B on step 2. HS on step B 3. quad stretch B Side bilateral Reps/Minutes 30 sec ea Neuro Re-Education Treatment Balance Activities SLS Comments 1. w/rotation B 2. Y reach x3 B 3. SLS EC bosu Comments 1. DL balance blue and black side EC 2. march on blue side B x20 - vc to engage glutes, upright posture 3. step up blue side w/alt june x10 B 4. mini squats x10 ea- on blue side and black side 5.SLS blue side B 6. fwd mini lunge blue side x10 B 7. lat lunge B x10 PT-OP-R Modalities Start: 11/15/21 17:52 Freq: Status: Active Protocol: Document 12/26/21 15:26 [facility] (Rec: 12/26/21 16:02 [facility] [id number]) Hot Pack/Cold Pack Treatment Cold Pack Location L knee Patient Position Hooklying Treatment Duration (minutes) 5 Patient Tolerance Fair PT-OP-T Assessment and Plan Start: 11/15/21 17:52 Freq: Status: Active Protocol: Document 03/06/22 12:59 [facility] (Rec: 03/06/22 13:46 [facility] [id number]) Physical Therapy Assessment Goals balacne Form Layer Goal (LTG) Pt will be able to do SLS for 30 sec on L side w/o lat shear of pelvis or use of UEs or pain LTG Duration achieved 01/25 stairs Form Layer Goal (LTG) Pt will be able to descend stairs fwd reciprocally w/o rail w/o pain or feeling of instability. 01/25-unstable feeling 02/20-unstable if fwd facing w /down; up ok LTG Duration 04/17 activities Short Term Goal (STG) pt will be able to walk and stand w/o feeling of LLE giving out 01/25-still occ STG Duration 03/17 Group Home Goal (LTG) Pt will be able to run to play w/kids w/o pain, and fear of LE giving out and be able to skateboard. 02/20-has started riding scooters with kids now but still concern about giving out LTG Duration 04/15 strength Short Term Goal (STG) Pt will be consistant and indep w/performance of HEP STG Duration 01/16 Group Home Goal (LTG) Pt will score at least 3/5 on LPM into all planes and 5/5 on MMT LEs B to shwo improved stability to dec pt feelign of instability. 02/20-improved LTG Duration 04/15 LEFS Impairment 30/80 Short Term Goal (STG) Pt will score at least 45/80 on LEFS to show improved function. STG Duration achieved 02/20 Group Home Goal (LTG) Pt will score at least 70/80 on LEFS to show improved function. LTG Duration 04/15 Assessment Summary Assessment Improvign stability but pt requires encouragement to work on balance and strength at home too. He is fatigued by end of session Physical Therapy Plan Next Visit Focus/Plan Next Note Type Treatment Note Next Visit Plan cont to work on hip and ankle strengthening and hamstring mobility for improved knee function, cont to work on stabilizing knee.
--- NOTE | 2022-03-08 12:03 | PT.OTN ---
Current Diagnoses Other chronic pain (03/08/22) Pain in left knee (03/08/22) Difficulty in walking, not elsewhere classified (03/08/22) Abnormal posture (03/08/22) Weakness (03/08/22) Physical Therapy Treatment Note PT-OP-A Visit Information Start: 11/15/21 17:52 Freq: Status: Active Protocol: Document 03/08/22 11:25 [facility] (Rec: 03/08/22 12:01 [facility] [id number]) Out-Patient Physical Therapy Visit Information Visit Information Visit Type Treatment Note Visit Start Time 11:24 Visit Stop Time 12:02 Total Visit Minutes 38 Visit Number 17 Number of RETURNED ITEM CLERK Visits 0 PT-OP-B Current Condition Start: 11/15/21 17:52 Freq: Status: Active Protocol: Document 11/16/21 13:50 [facility] (Rec: 11/16/21 14:52 [facility] [id number]) Current Condition History of Current Condition Onset Date 2014 Current Complaints L knee History of Current Condition Pt was skateboarding and came down from a high jump and came down hard on it as he was higher from the ground than he thoguht. he couldn't walk on it initially,but didn't get insurance so didn't get it checked out. This happened in 2014. It improved slightly between the initial incident and the hike incident. A couple years ago, his knee twisted and came under him med when stepping on a root and had inc pain. Pt reports knee gives out occ on him. He hasn' t been able to skateboard sicne the initial injury. Notes leg feels like a toothpick. If he bends it wrong, or lifts something too heavy, he can feel it. He is limited re: finding work d/t he is not comofrtable lifting heavy things d/t it hurts the knee. When he is stadnign it feels like it is going to buckle inwards sometimes. The thought of his injury makes him cringe still. He tires to run to play w/his kiddos but it is very unable and he is unable to really run. He doenst feel like knee would be stable if he has to catch himself on it. He has been trying to get on bike. he has been doing some mini squats and other exercises to try to keep his leg strong. Pt reports upper scap pain into head. Pt reports knee feels more fragile now. When he gets the sharp pain, it feels like it brings him back to the original trama. Treatment Goals Patient/Caregiver Goals be able to run w/o fear of it giving out, be able ride his skateboard PT-OP-C Subjective Start: 11/15/21 17:52 Freq: Status: Active Protocol: Document 03/08/22 11:25 [facility] (Rec: 03/08/22 12:01 [facility] [id number]) OP-PT Subjective Patient Comments Patient Comments reports walked here. He had one instance this AM where his knee gave out PT-OP-D Balance Start: 11/15/21 17:52 Freq: Status: Active Protocol: Document 02/20/22 13:50 [facility] (Rec: 02/20/22 14:33 [facility] [id number]) Balance Tests Single Limb Standing Single Limb- Right >30 sec Single Limb- Left >30 sec PT-OP-F Manual Assessment Start: 11/15/21 17:52 Freq: Status: Active Protocol: Document 11/16/21 13:50 [facility] (Rec: 11/16/21 14:52 [facility] [id number]) Manual Assessments Soft Tissue Assessment Soft Tissue Mobility Assessment tender at med joint line Joint Mobility Assessment Joint Mobility Assessment L rearfoot varus, &forefoot varus; ER femur, IR tibia, L foot ER, arch L collapsed more than R PT-OP-G Mobility & Gait Start: 11/15/21 17:52 Freq: Status: Active Protocol: Document 11/16/21 13:50 [facility] (Rec: 11/16/21 14:52 [facility] [id number]) OP Gait Assessment Comments Gait Comments harder foot slap LLE, dec push off B, lat lean over LLE PT-OP-J Posture/Palpation/Skin Start: 11/15/21 17:52 Freq: Status: Active Protocol: Document 02/20/22 13:50 [facility] (Rec: 02/20/22 14:33 [facility] [id number]) Posture Evaluation [facility] Postural Classification System Lumbar Protective Mechanism Left AP 3 Lumbar Protective Mechanism Right AP 3 Lumbar Protective Mechanism Left PA 3 Lumbar Protective Mechanism Right PA 2 PT-OP-K Range of Motion Start: 11/15/21 17:52 Freq: Status: Active Protocol: Document 11/16/21 13:50 [facility] (Rec: 11/16/21 14:52 [facility] [id number]) Knee Goniometric Range of Motion Knee Right Flexion Active (degrees) 140 Extension Active (degrees) 0 Left Flexion Active (degrees) 134 Extension Active (degrees) 0 PT-OP-L Special Tests Start: 11/15/21 17:52 Freq: Status: Active Protocol: Document 11/16/21 13:50 [facility] (Rec: 11/16/21 14:52 [facility] [id number]) Special Tests Lumbar Spine Special Tests Slump Test Results neg Knee Special Tests Elsy Test Test Results posiitve w/ER of tibia into ext-pain & lock sensation Apley's Compression Test Results neg Posterior Draw Test Results neg Young Chondromalacia Test Results neg no pain w/ex Lucila's Test Results neg Paniagua's Compression Test Results neg Corie's Test Test Results positive L Straight Leg Raise Test Results 72 R; 64 L Gordon Comments L tight hip flexors, RF & TFL Thessaly Test 20 Degrees Test Results neg for pain-feels unstable Varus- 25 Degrees Test Results neg L Valgus- 25 Degrees Test Results positive for laxity in 0 deg & 25 sec & unstable position, Pt guards PT-OP-M Strength Start: 11/15/21 17:52 Freq: Status: Active Protocol: Document 02/20/22 13:50 [facility] (Rec: 02/20/22 14:33 [facility] [id number]) Hip Strength Hip Manual Muscle Testing Right Flexion (L2) 5 Normal Extension (S1) 5 Normal Abduction 5 Normal Adduction 5 Normal External Rotation 5 Normal Internal Rotation 5 Normal Left Flexion (L2) 5 Normal Extension (S1) 4+ Good+ Abduction 5 Normal Adduction 4 Good External Rotation 5 Normal Internal Rotation 5 Normal Knee Strength Knee Manual Muscle Testing Right Flexion (S2) 5 Normal Extension (L3) 5 Normal Left Flexion (S2) 5 Normal Extension (L3) 4+ Good+ Ankle/Foot Strength Ankle and Foot Manual Muscle Testing Right Dorsiflexion (L4) 5 Normal Plantarflexion (S1) 5 Normal Comments 20 heel raises Left Dorsiflexion (L4) 5 Normal Plantarflexion (S1) 5 Normal Comments 20 heel raises PT-OP-Q Treatments Start: 11/15/21 17:52 Freq: Status: Active Protocol: Document 03/08/22 11:25 [facility] (Rec: 03/08/22 12:01 [facility] [id number]) Gym Equipment Cable Column (Body Solid) Leg Curl Resistance 7 Reps/Time 2x12 Shuttle Recovery Unilateral Squats Details B Resistance 62# Shuttle Recovery Platform Stable Reps/Time 2x10 Therapeutic Exercises Standing Exercises Ankle PF Standing Exercise Name SL heel raises Side bilateral Equipment Used stair w/rail Reps/Minutes 2x10 TKE Standing Exercise Name TKE Side left Resistance TB #3 Reps/Minutes x20 reps stretch Standing Exercise Name 1. calf stretch B on step 2. HS on step B 3. quad stretch B Side bilateral Reps/Minutes 30 sec ea Neuro Re-Education Treatment Balance Activities SLS Comments 1. w/rotation B 2. Y reach x3 B 3. SLS EC bosu Comments 1. DL balance blue and black side EC 2. march on blue side B x20 - vc to engage glutes, upright posture 3. step up blue side w/alt june x10 B 4. mini squats x10 ea- on blue side and black side 5.SLS blue side B 6. fwd mini lunge blue side x10 B 7. lat lunge B x10 PT-OP-R Modalities Start: 11/15/21 17:52 Freq: Status: Active Protocol: Document 12/26/21 15:26 [facility] (Rec: 12/26/21 16:02 [facility] [id number]) Hot Pack/Cold Pack Treatment Cold Pack Location L knee Patient Position Hooklying Treatment Duration (minutes) 5 Patient Tolerance Fair PT-OP-T Assessment and Plan Start: 11/15/21 17:52 Freq: Status: Active Protocol: Document 03/08/22 11:25 [facility] (Rec: 03/08/22 12:01 [facility] [id number]) Physical Therapy Assessment Goals balacne Coil Binder Goal (LTG) Pt will be able to do SLS for 30 sec on L side w/o lat shear of pelvis or use of UEs or pain LTG Duration achieved 20 stairs Shelter Goal (LTG) Pt will be able to descend stairs fwd reciprocally w/o rail w/o pain or feeling of instability. 01/25-unstable feeling 02/20-unstable if fwd facing w /down; up ok LTG Duration 04/17 activities Short Term Goal (STG) pt will be able to walk and stand w/o feeling of LLE giving out 01/25-still occ STG Duration 03/17 Shelter Goal (LTG) Pt will be able to run to play w/kids w/o pain, and fear of LE giving out and be able to skateboard. 02/20-has started riding scooters with kids now but still concern about giving out LTG Duration 04/15 strength Short Term Goal (STG) Pt will be consistant and indep w/performance of HEP STG Duration 01/16 Coil Binder Goal (LTG) Pt will score at least 3/5 on LPM into all planes and 5/5 on MMT LEs B to shwo improved stability to dec pt feelign of instability. 02/20-improved LTG Duration 04/15 LEFS Impairment 30/80 Short Term Goal (STG) Pt will score at least 45/80 on LEFS to show improved function. STG Duration achieved 02/20 Coil Binder Goal (LTG) Pt will score at least 70/80 on LEFS to show improved function. LTG Duration 04/15 Assessment Summary Assessment Pt did well with balance today and showed good stability and depth w/squats and lunges. min cues for knees Physical Therapy Plan Next Visit Focus/Plan Next Note Type Discharge Summary Next Visit Plan cont to work on hip and ankle strengthening and hamstring mobility for improved knee function, cont to work on stabilizing knee.
--- NOTE | 2022-03-13 11:55 | PT.OPDS ---
Current Diagnoses Other chronic pain (03/08/22) Pain in left knee (03/08/22) Difficulty in walking, not elsewhere classified (03/08/22) Abnormal posture (03/08/22) Weakness (03/08/22) Visit Care Team Role Provider Type Marino Draper DO Attending Provider Physician Family Provider Primary Care Provider Referring Provider Specialty: [facility] Practice Address: [address] [place] [address], [facility] Email: [email or web address] Visit Number Visit Number [id number] Discharge Summary PT-OP-B Current Condition Start: 11/15/21 17:52 Freq: Status: Active Protocol: Document 11/16/21 13:50 [facility] (Rec: 11/16/21 14:52 [facility] [id number]) Current Condition History of Current Condition Onset Date 2014 Current Complaints L knee History of Current Condition Pt was skateboarding and came down from a high jump and came down hard on it as he was higher from the ground than he thoguht. he couldn't walk on it initially,but didn't get insurance so didn't get it checked out. This happened in 2014. It improved slightly between the initial incident and the hike incident. A couple years ago, his knee twisted and came under him med when stepping on a root and had inc pain. Pt reports knee gives out occ on him. He hasn' t been able to skateboard sicne the initial injury. Notes leg feels like a toothpick. If he bends it wrong, or lifts something too heavy, he can feel it. He is limited re: finding work d/t he is not comofrtable lifting heavy things d/t it hurts the knee. When he is stadnign it feels like it is going to buckle inwards sometimes. The thought of his injury makes him cringe still. He tires to run to play w/his kiddos but it is very unable and he is unable to really run. He doenst feel like knee would be stable if he has to catch himself on it. He has been trying to get on bike. he has been doing some mini squats and other exercises to try to keep his leg strong. Pt reports upper scap pain into head. Pt reports knee feels more fragile now. When he gets the sharp pain, it feels like it brings him back to the original trama. Treatment Goals Patient/Caregiver Goals be able to run w/o fear of it giving out, be able ride his skateboard PT-OP-C Subjective Start: 11/15/21 17:52 Freq: Status: Active Protocol: Document 03/08/22 11:25 [facility] (Rec: 03/08/22 12:01 [facility] [id number]) OP-PT Subjective Patient Comments Patient Comments reports walked here. He had one instance this AM where his knee gave out PT-OP-D Balance Start: 11/15/21 17:52 Freq: Status: Active Protocol: Document 02/20/22 13:50 [facility] (Rec: 02/20/22 14:33 [facility] [id number]) Balance Tests Single Limb Standing Single Limb- Right >30 sec Single Limb- Left >30 sec PT-OP-F Manual Assessment Start: 11/15/21 17:52 Freq: Status: Active Protocol: Document 11/16/21 13:50 [facility] (Rec: 11/16/21 14:52 [facility] [id number]) Manual Assessments Soft Tissue Assessment Soft Tissue Mobility Assessment tender at med joint line Joint Mobility Assessment Joint Mobility Assessment L rearfoot varus, &forefoot varus; ER femur, IR tibia, L foot ER, arch L collapsed more than R PT-OP-G Mobility & Gait Start: 11/15/21 17:52 Freq: Status: Active Protocol: Document 11/16/21 13:50 [facility] (Rec: 11/16/21 14:52 [facility] [id number]) OP Gait Assessment Comments Gait Comments harder foot slap LLE, dec push off B, lat lean over LLE PT-OP-J Posture/Palpation/Skin Start: 11/15/21 17:52 Freq: Status: Active Protocol: Document 02/20/22 13:50 [facility] (Rec: 02/20/22 14:33 [facility] [id number]) Posture Evaluation [facility] Postural Classification System Lumbar Protective Mechanism Left AP 3 Lumbar Protective Mechanism Right AP 3 Lumbar Protective Mechanism Left PA 3 Lumbar Protective Mechanism Right PA 2 PT-OP-K Range of Motion Start: 11/15/21 17:52 Freq: Status: Active Protocol: Document 11/16/21 13:50 [facility] (Rec: 11/16/21 14:52 [facility] [id number]) Knee Goniometric Range of Motion Knee Right Flexion Active (degrees) 140 Extension Active (degrees) 0 Left Flexion Active (degrees) 134 Extension Active (degrees) 0 PT-OP-L Special Tests Start: 11/15/21 17:52 Freq: Status: Active Protocol: Document 11/16/21 13:50 [facility] (Rec: 11/16/21 14:52 [facility] [id number]) Special Tests Lumbar Spine Special Tests Slump Test Results neg Knee Special Tests Elsy Test Test Results posiitve w/ER of tibia into ext-pain & lock sensation Apley's Compression Test Results neg Posterior Draw Test Results neg Young Chondromalacia Test Results neg no pain w/ex Lucila's Test Results neg Paniagua's Compression Test Results neg Corie's Test Test Results positive L Straight Leg Raise Test Results 72 R; 64 L Gordon Comments L tight hip flexors, RF & TFL Thessaly Test 20 Degrees Test Results neg for pain-feels unstable Varus- 25 Degrees Test Results neg L Valgus- 25 Degrees Test Results positive for laxity in 0 deg & 25 sec & unstable position, Pt guards PT-OP-M Strength Start: 11/15/21 17:52 Freq: Status: Active Protocol: Document 02/20/22 13:50 [facility] (Rec: 02/20/22 14:33 [facility] [id number]) Hip Strength Hip Manual Muscle Testing Right Flexion (L2) 5 Normal Extension (S1) 5 Normal Abduction 5 Normal Adduction 5 Normal External Rotation 5 Normal Internal Rotation 5 Normal Left Flexion (L2) 5 Normal Extension (S1) 4+ Good+ Abduction 5 Normal Adduction 4 Good External Rotation 5 Normal Internal Rotation 5 Normal Knee Strength Knee Manual Muscle Testing Right Flexion (S2) 5 Normal Extension (L3) 5 Normal Left Flexion (S2) 5 Normal Extension (L3) 4+ Good+ Ankle/Foot Strength Ankle and Foot Manual Muscle Testing Right Dorsiflexion (L4) 5 Normal Plantarflexion (S1) 5 Normal Comments 20 heel raises Left Dorsiflexion (L4) 5 Normal Plantarflexion (S1) 5 Normal Comments 20 heel raises PT-OP-T Assessment and Plan Start: 11/15/21 17:52 Freq: Status: Active Protocol: Document 03/13/22 11:46 [facility] (Rec: 03/13/22 11:55 [facility] [id number]) Physical Therapy Assessment Goals balacne Half-Way Goal (LTG) Pt will be able to do SLS for 30 sec on L side w/o lat shear of pelvis or use of UEs or pain LTG Duration achieved 01/25 stairs Detective Investigator Goal (LTG) Pt will be able to descend stairs fwd reciprocally w/o rail w/o pain or feeling of instability. 01/25-unstable feeling 02/20-unstable if fwd facing w /down; up ok LTG Duration unstable fwd still activities Short Term Goal (STG) pt will be able to walk and stand w/o feeling of LLE giving out 01/25-still occ STG Duration 03/17 Detective Investigator Goal (LTG) Pt will be able to run to play w/kids w/o pain, and fear of LE giving out and be able to skateboard. 02/20-has started riding scooters with kids now but still concern about giving out LTG Duration 04/15 strength Short Term Goal (STG) Pt will be consistant and indep w/performance of HEP STG Duration 01/16 Half-Way Goal (LTG) Pt will score at least 3/5 on LPM into all planes and 5/5 on MMT LEs B to shwo improved stability to dec pt feelign of instability. 02/20-improved LTG Duration 04/15 LEFS Impairment 30/80 Short Term Goal (STG) Pt will score at least 45/80 on LEFS to show improved function. STG Duration achieved 02/20 Detective Investigator Goal (LTG) Pt will score at least 70/80 on LEFS to show improved function. LTG Duration 04/15 Assessment Summary Assessment Pt is indep w/HEP at this time and has plateaued in progress . Plan is for him to see ortho as primary MD as said he will likely need surgery based on his MRI of his knee. Pt encouraged to cont strengthening on his own in order to keep knee as stable as possible. Physical Therapy Plan Discharge Physical Therapy Discharge Reasons Plateau in Progress
== END 2022-03-15 13:41 | disposition home or self-care (01) ==
LOC: PHYS 11:15
PROVIDERS: Family Provider Family Medicine; PCP Family Medicine; Referring Provider Family Medicine; Visit Provider Family Medicine
DX: M25.562 Pain in left knee (principal); G89.29 Other chronic pain; R53.1 Weakness; R29.3 Abnormal posture; R26.2 Difficulty in walking, not elsewhere classified
CPT/HCPCS: 97110; 97112; 97140; 97162; 97535

== ENCOUNTER → 2023-04-13 08:52 | Outpatient (CLI) | payer OTHER, MEDICAID, SELFPAY ==
[2023-04-13 09:19] LABS: Add Manual Diff / Slide Review NO; Basophils Absolute Auto 100 /uL (0-100); Eosinophils Absolute Auto 500 /uL (0-450); Eosinophils Percent Auto 7.4 % (2-4); Hematocrit 44.5 % (41-53); Hemoglobin 15.7 g/dL (13.5-17.5); Lymphocytes Absolute Auto 2200 /uL (1100-4500); Lymphocytes Percent Auto 31.4 % (25-40); Mean Corpuscular HGB Conc 35.3 % (30-36); Mean Corpuscular Hemoglobin 30.4 PG (26-34); Mean Corpuscular Volume 86.3 fL (80-100); Monocytes Absolute Auto 500 /uL (0-900); Neutrophils Absolute Auto 3800 /uL (1500-7000); Neutrophils Percent Auto 53.2 % (50-75); Platelet Count 420 X10^3/uL (150-400); Red Blood Cell Count 5.15 X10^6/uL (4.5-5.9); Red Cell Distribution Width 12.6 % (11.6-14.8); White Blood Cell Count 7.1 X10^3/uL (4.5-11.0)
[2023-04-13 10:06] LABS: Alanine Aminotransferase 68 IU/L (<50); Albumin 4.5 g/dL (3.5-5.0); Albumin Globulin Ratio 1.4 (1.0-2.8); Alkaline Phosphatase 58 U/L (38-126); Aspartate Aminotransferase 38 IU/L (17-59); BUN Creatinine Ratio 14.9 (6-22); Bilirubin Total 0.6 mg/dL (0.2-1.3); Blood Urea Nitrogen 13 mg/dL (9-20); Calcium 9.4 mg/dL (8.4-10.2); Carbon Dioxide 31 mmol/L (22-32); Chloride 100 mmol/L (98-107); Cholesterol 151 mg/dL (140-199); Estimated Glomerular Filt Rate > 60 mL/min (>60); Globulin 3.3 g/dL (1.7-4.1); Glucose 104 mg/dL (70-100); HDL Cholesterol 34 mg/dL (40-60); HEMOLYSIS < 15 (0-50); LDL Cholesterol Calculated 72 mg/dL (<100); Potassium 3.9 mmol/L (3.4-5.1); Sodium 137 mmol/L (137-145); Total Protein 7.8 g/dL (6.3-8.2); Triglycerides 225 mg/dL (35-150)
== END ==
LOC: LAB 08:53
PROVIDERS: Family Provider Family Medicine; PCP Family Medicine; Referring Provider Family Medicine; Visit Provider Family Medicine
DX: Z00.00 Encounter for general adult medical examination without abnormal findings (principal); M54.9 Dorsalgia, unspecified; G89.29 Other chronic pain
CPT/HCPCS: 36415; 80053; 80061; 85025

== ENCOUNTER 2023-04-17 14:40 | Emergency (ER) | payer OTHER, MEDICAID, SELFPAY ==
[2023-04-17 14:42] VITALS: BP 125/82; PULSE 82; RESP 20; TEMP 37.2; O2SAT 99; BMI 27.3
--- NOTE | 2023-04-17 15:20 | ED_ITS ---
HPI - Dental/Oral <Deirdre Andino PA-C - Last Filed: 04/17/23 16:22> General Chief complaint: Dental/Oral Stated complaint: bad tooth cant get into dentist Time Seen by Provider: 04/17/23 14:52 Source: patient Mode of arrival: Ambulatory History of Present Illness HPI Narrative: 37-year-old male with chronic tooth problems and multiple missing broken teeth presents with concern for right lower back molar pain worsening over the past 3 days. Patient states he thinks it is a ?exposed nerve?. But has noticed a small amount of swelling of his cheek nearby. He has an appointment to see his dentist on the in 2 weeks' time. He is hoping for a nerve block today to help with the pain. He denies fevers, chills, nausea, vomiting, drainage from the area or any other symptoms. He states he has had this problem in the past and has chronically poor teeth which is genetic states he always has to get them pulled in they often find an infection present in the tooth roots. Related Data Previous Rx's Medication Instructions Recorded omeprazole 20 mg capsule,delayed 20 mg PO DAILY #90 caps 04/11/23 release clindamycin HCl 300 mg capsule 300 mg PO Q8H dental infection 10 04/17/23 days #30 caps Allergies Allergy/AdvReac Type Severity Reaction Status Date / Time amoxicillin Allergy Hives Verified 04/17/23 14:42 Penicillins Allergy Rash Verified 04/11/23 14:47 Review of Systems <Deirdre Andino PA-C - Last Filed: 04/17/23 16:22> Review of Systems Narrative: See HPI Patient History <Deirdre Andino PA-C - Last Filed: 04/17/23 16:22> Medical History Degenerative joint disease of left knee MCL sprain of left knee GERD (gastroesophageal reflux disease) Well adult exam Left knee pain Elevated LFTs Chronic cough History of bipolar disorder Fractures Chronic back pain Blunt injury, right eye (~2000) Tinea Eczema Acid reflux Surgical History Anesthesia H/O eye surgery (~04/08/00) Family History Mother Breast cancer Social History Smoking Status: Former smoker Smoking Status: Former smoker alcohol intake frequency: 0-2 drinks per day Substance Use Type: marijuana Exam <Deirdre Andino PA-C - Last Filed: 04/17/23 16:22> Narrative Exam Narrative: GENERAL: [37] year old patient appears stated age. Well-developed patient, in mild distress, holding the right side of his face in his hand, in pain. HEAD: See ENT Atraumatic. Normocephalic. EYES: Pupils equal round and reactive. Extraocular motions intact. No scleral icterus. No injection or drainage. ENT: Patient has multiple missing teeth broken off at the base on the upper and lower jaw. There is 1 remaining right lower posterior molar that is broken in multiple places and decayed appearing. Patient has significant tenderness with any palpation over this broken tooth; there is no fluctuance or significant tenderness of the associated gum, there is mild subtle right-sided facial swelling noted. No tenderness or lymphadenopathy of the buccal region or submandibular region. Nose without bleeding, purulent drainage. Throat without erythema, tonsillar hypertrophy or exudate. Airway patent. NECK: Trachea midline. Non tender CARDIOVASCULAR: Regular rate and rhythm without murmurs, gallops, or rubs. RESPIRATORY: Clear to auscultation. Breath sounds equal bilaterally. No wheezes, rales, or rhonchi. EXTREMITIES: Moving all extremities, normal gait NEURO: AOx3. SKIN: No rash or erythema of visible areas Initial Vital Signs Initial Vital Signs: Vital Signs Temperature 98.9 F 04/17/23 14:42 Pulse Rate 82 04/17/23 14:42 Respiratory Rate 20 04/17/23 14:42 Blood Pressure 125/82 04/17/23 14:42 Pulse Oximetry 99 04/17/23 14:42 Oxygen Delivery Method Room Air 04/17/23 14:42 <Demi Ramirez DO - Last Filed: 04/17/23 18:17> Initial Vital Signs Initial Vital Signs: Vital Signs Temperature 98.9 F 04/17/23 14:42 Pulse Rate 82 04/17/23 14:42 Respiratory Rate 04/17/23 14:42 Blood Pressure 125/82 04/17/23 14:42 Pulse Oximetry 99 04/17/23 14:42 Oxygen Delivery Method Room Air 04/17/23 14:42 Course <Deirdre Andino PA-C - Last Filed: 04/17/23 16:22> Orders Ordered: Discontinued Medications Acetaminophen (Acetaminophen 325 Mg Tablet) 975 mg PO NOW ONE Stop: 04/17/23 15:40 Last Admin: 04/17/23 15:49 Dose: 975 mg Documented By: RB Ketorolac Tromethamine (Ketorolac 30 Mg/Ml Vial) 30 mg IM NOW ONE Stop: 04/17/23 15:40 Last Admin: 04/17/23 15:50 Dose: 30 mg Documented By: RB Vital Signs Vital signs: Vital Signs - 8 hr 04/17/23 14:42 04/17/23 15:57 Temperature 98.9 F 97.8 F Pulse Rate 82 62 Respiratory Rate 20 22 Blood Pressure 125/82 114/76 Pulse Oximetry 99 98 Oxygen Delivery Method Room Air Room Air <Demi Ramirez DO - Last Filed: 04/17/23 18:17> Orders Ordered: Discontinued Medications Acetaminophen (Acetaminophen 325 Mg Tablet) 975 mg PO NOW ONE Stop: 04/17/23 15:40 Last Admin: 04/17/23 15:49 Dose: 975 mg Documented By: RB Ketorolac Tromethamine (Ketorolac 30 Mg/Ml Vial) 30 mg IM NOW ONE Stop: 04/17/23 15:40 Last Admin: 04/17/23 15:50 Dose: 30 mg Documented By: RB Vital Signs Vital signs: Vital Signs - 8 hr 04/17/23 14:42 04/17/23 15:57 Temperature 98.9 F 97.8 F Pulse Rate 82 62 Respiratory Rate 20 22 Blood Pressure 125/82 114/76 Pulse Oximetry 99 98 Oxygen Delivery Method Room Air Room Air MDM - Dental/Oral <Deirdre Andino PA-C - Last Filed: 04/17/23 16:22> Differential Diagnosis Differential diagnosis: Likely gingival abscess, dental caries, toothache, dental abscess and fracture of tooth Medical Records Attestation: I reviewed the patient's medical records. MDM Narrative Medical decision making narrative: This is a previously generally healthy 37-year-old male who presents to the ER with concern for 3 days of gradually worsening right back lower tooth pain at the site of a broken tooth. On exam patient has unremarkable vitals does have localized tenderness at this tooth and concern for infection in the root or the tooth itself with decay visible. There is no palpable or visible abscess present, I have low suspicion for deep space infection. Discussed options with the patient, he is hoping for a dental block however advise him that this is not something that I typically perform and we do offer Toradol which he accepts IM, as well as Tylenol p.o., he did take Excedrin this morning with brief improvement of symptoms. He is encouraged to continue Tylenol ibuprofen or Advil alternating for pain, follow up with his dentist as planned on the sooner if possible and he is prescribed clindamycin for presumed dental infection. He has allergies to penicillins. Return precautions provided, follow-up plan discussed, all questions answered. Discharge Plan Departure Patient Disposition: Home Clinical Impression: Dental infection, Pain, dental Instructions: Tooth Abscess, DI for Dental Pain Activity Restrictions/Additional Instructions: *You have been diagnosed with [dental pain, possible dental infection] *What to do: *Please continue to take your regular medications as directed. [1 ] New medication prescriptions sent to your pharmacy: [Clindamycin] [ ] New medication written as a paper prescription [ ] No new medications given *Please follow up with your primary care provider in 2-3 days, call for an appointment. Let them know you were seen in the Emergency Department and that we ask that you be seen in follow up. We will electronically transmit a record of today's note if your PCP is in our system. Based on your gradually worsening pain and your exam today I am suspicious he may have an infection of your tooth, I have prescribed antibiotics for this clindamycin please take the entire course even if you are feeling better. We did give you a shot of Toradol today in the emergency department to help with pain I would recommend you take Tylenol and i buprofen or Advil over the next few days to help with your pain, it sounds like you have tried Orajel which has not helped much but the Excedrin you tried is probably unlikely to help very much with this type of pain if you do alternate Tylenol and Advil/ibuprofen you hopefully will get better relief especially with taking the antibiotics this should improve things. If you develop worsening symptoms such as fevers or increasing facial swelling or other symptoms of concern please do not hesitate to seek re-evaluation. Otherwise please follow- up closely with your dentist as planned for further evaluation. *If you do not have a primary care provider please contact the [facility] Resource line at [phone]. They will ask some questions about your medical history and help get you set up with a doctor in the community. *Return to Emergency Department if you should have any new, worsening or concerning symptoms, such as [fever greater than 101 F, shaking chills, worsening pain, persistent vomiting or other bothersome symptoms] Prescriptions: New clindamycin HCl 300 mg capsule 300 mg PO Q8H 10 Days Qty: 30 0RF No Action omeprazole 20 mg capsule,delayed release(DR/EC) 20 mg PO DAILY Qty: 90 3RF Referrals: Marino Draper DO [Primary Care Provider] - Stand Alone Forms: Patient Portal/API ED Sign-out <Demi Ramirez DO - Last Filed: 04/17/23 18:17> Cosign ED Attending Camachoature Attestation: I was immediately available in the department for consultation.
[2023-04-17] MEDS: ACETAMINOPHEN 325 MG TABLET 975 MG PO (15:49)
[2023-04-17] MEDS: KETOROLAC 30 MG/ML VIAL IM (15:50)
[2023-04-17 15:57] VITALS: BP 114/76; PULSE 62; RESP 22; TEMP 36.6; O2SAT 98
== END 2023-04-17 16:16 | disposition home or self-care (01) ==
PROVIDERS: Emergency Provider Student in an Organized Health Care Education/Training Program; Family Provider Family Medicine; PCP Family Medicine
DX: K04.7 Periapical abscess without sinus (principal); K08.89 Other specified disorders of teeth and supporting structures
CPT/HCPCS: 96372; 99283; J1885

== ENCOUNTER 2023-04-23 02:38 | Emergency (ER) | payer OTHER, MEDICAID, SELFPAY ==
[2023-04-23 02:43] VITALS: BP 172/106; PULSE 80; RESP 20; TEMP 36.7; O2SAT 98; BMI 27.3
--- NOTE | 2023-04-23 03:08 | ED.DENTAL ---
HPI - Dental/Oral General Chief complaint: Dental/Oral Stated complaint: toothache rt side Time Seen by Provider: 04/23/23 03:05 Source: patient Mode of arrival: Ambulatory History of Present Illness HPI Narrative: Patient 37-year-old male with chronic dental issues presenting today with sudden onset right lower dental pain. He has ongoing dental issues tonight he woke up with severe pain. He has actually been seen for this pain twice this month already walk-in clinic. He has been on clindamycin has not helped. He has an appointment with dentist on the . He has had multiple teeth pulled feels like this when he is to be pulled to. No fever chills or swelling of his face. He has not taken anything [id number] for pain Related Data Previous Rx's Medication Instructions Recorded omeprazole 20 mg capsule,delayed 20 mg PO DAILY #90 caps 04/11/23 release clindamycin HCl 300 mg capsule 300 mg PO Q8H dental infection 10 04/17/23 days #30 caps Allergies Allergy/AdvReac Type Severity Reaction Status Date / Time amoxicillin Allergy Hives Verified 04/17/23 14:42 Penicillins Allergy Rash Verified 04/11/23 14:47 Patient History Medical History Degenerative joint disease of left knee MCL sprain of left knee GERD (gastroesophageal reflux disease) Well adult exam Left knee pain Elevated LFTs Chronic cough History of bipolar disorder Fractures Chronic back pain Blunt injury, right eye (~2000) Tinea Eczema Acid reflux Surgical History Anesthesia H/O eye surgery (~04/08/00) Family History Mother Breast cancer Social History Smoking Status: Former smoker Smoking Status: Former smoker alcohol intake frequency: 0-2 drinks per day Substance Use Type: marijuana Exam Initial Vital Signs Initial Vital Signs: Vital Signs Temperature 98.0 F 04/23/23 02:43 Pulse Rate 80 04/23/23 02:43 Respiratory Rate 20 04/23/23 02:43 Blood Pressure 172/106 H 04/23/23 02:43 Pulse Oximetry 98 04/23/23 02:43 Oxygen Delivery Method Room Air 04/23/23 02:43 GENERAL: Well-appearing, well-nourished and in no acute distress. HEENT: No facial swelling no trismus CARDIOVASCULAR: peripheral pulses in tact, cap refill <2 sec RESPIRATORY: No respiratory distress, speaks in full sentences without difficulty EXTREMITIES: Normal range of motion, no clubbing or edema. Neurovascularly intact NEUROLOGICAL: Cranial nerves II through XII grossly intact. Normal gait and speech. SKIN: Warm, dry, no petechiae, no rashes or lesions. [facility] Adult Head Mouth w/Numbe Teeth: 1. Cracked rooting tooth no dental abscess Procedures Nerve Block Nerve Block 1: Local Anesthetic: lidocaine 1% and with epi Amount of anesthesia used (mL): 2 Intraoral Nerve Block: supraperiosteal Procedure Successful: Yes Patient Tolerated Procedure: Well and No complications Course Orders Ordered: Discontinued Medications Hydrocodone Bitart/Acetaminophen (Hydrocodone/Acet 5/325 Prepack) 1 bottle MISC DIRECTED ONE Stop: 04/23/23 03:19 Last Admin: 04/23/23 03:25 Dose: 1 bottle Documented By: KAIDEN Ketorolac Tromethamine (Ketorolac 30 Mg/Ml Vial) 30 mg IM NOW ONE Stop: 04/23/23 03:19 Last Admin: 04/23/23 03:23 Dose: 30 mg Documented By: KAIDEN Vital Signs Vital signs: Vital Signs - 8 hr 04/23/23 02:43 Temperature 98.0 F Pulse Rate 80 Respiratory Rate 20 Blood Pressure 172/106 H Pulse Oximetry 98 Oxygen Delivery Method Room Air MDM - Dental/Oral MDM Narrative Medical decision making narrative: Patient 37-year-old male with chronic dental issues presenting today with dental pain. He does have a cracked tooth no dental abscess. Dental block with lidocaine he received instant relief. Given Toradol as well. Already taking antibiotics no evidence of deep neck soft tissue infection or cellulitis. Discharge Plan Departure Patient Disposition: Home Clinical Impression: Pain, dental Instructions: DI for Dental Pain Activity Restrictions/Additional Instructions: *You have been diagnosed with dental pain *What to do: At this time follow-up with dentist. *Continue to take medications as directed Motrin 600 mg every 6 hours for ruvt-do-qkichoma pain Tylenol 650 mg every 4- 6 hours if needed for tkrr-hm-qroqkfac pain Mant[place] 1 tablet every 6 hours if needed for severe pain (you only got 4 the tablets in the ED) Finish antibiotic as prescribed *Follow up with your primary care provider in 2-3 days or call [phone] *Return to ER if you should have increasing facial pain swelling redness [or] any new, worsening or concerning symptoms CONTROLLED SUBSTANCE DISCHARGE (Narcotoic/benzodiazepine/Flexeril/Phenergan) 1. You have been prescribed narcotic medications, it does have acetaminophen/Tylenol/paracetamol in it, DO NOT TAKE MORE THAN 4,00mg in 24 hours of Tylenol. TRAMADOL DOES NOT CONTAIN TYLENOL 2. Please understand that we cannot provide further refills of narcotics, benzodiazepines or controlled substances through the ED and her pain management will need to be through your provider. 3. While on these medications you cannot drive or operate heavy machinery. 4. You cannot sign legal documents or perform any duties such as this. 5. As long as you're taking opiate pain medications he should also be taking a stool softener such as Colace, Dulcolax, MiraLAX or prune juice, to help avoid constipation. Prescriptions: No Action omeprazole 20 mg capsule,delayed release(DR/EC) 20 mg PO DAILY Qty: 90 3RF clindamycin HCl 300 mg capsule 300 mg PO Q8H 10 Days Qty: 30 0RF Referrals: Marino Draper DO [Primary Care Provider] - Stand Alone Forms: Patient Portal/API
[2023-04-23] MEDS: KETOROLAC 30 MG/ML VIAL IM (03:23)
[2023-04-23] MEDS: HYDROCODONE/ACET 5/325 PREPACK 1 BOTTLE MISC (03:25)
== END 2023-04-23 03:32 | disposition home or self-care (01) ==
PROVIDERS: Emergency Provider Emergency Medicine; Family Provider Family Medicine; PCP Family Medicine
DX: K08.89 Other specified disorders of teeth and supporting structures (principal)
CPT/HCPCS: 64400; 96372; 99283; J1885